=== PATIENT | male | born 1940 | race Two or more races ===

== ENCOUNTER → 2018-03-11 | Outpatient (CLI) | payer MEDICARE ==
[2018-03-11 11:15] LABS: HCT 39.3 % (39.0-53.0); HGB 13.1 gm/dL (13.0-17.5); MCH 29.9 pg (25.0-35.0); MCHC 33.3 g/dL (31.0-37.0); MCV 89.8 fL (80.0-100.0); Mean Platelet Volume 6.4; Platelet Count 140 k/uL (150-450); RBC 4.38 m/uL (4.30-5.90); RDW 13.6 % (11.5-15.5); WBC 8.2 k/uL (3.8-10.6)
[2018-03-11 11:51] LABS: ALT 46 U/L (21-72); AST 48 U/L (17-59); Albumin 4.4 g/dL (3.5-5.0); Alkaline Phosphatase 103 U/L (38-126); Anion Gap 9 mmol/L; Blood Urea Nitrogen 13 mg/dL (9-20); Calcium 9.4 mg/dL (8.4-10.2); Carbon Dioxide 27 mmol/L (22-30); Chloride 92 mmol/L (98-107); Glucose 91 mg/dL (74-99); Potassium 5.6 mmol/L (3.5-5.1); Sodium 128 mmol/L (137-145); Total Bilirubin 0.9 mg/dL (0.2-1.3); Total Protein 6.9 g/dL (6.3-8.2)
== END | disposition home or self-care (01) ==
LOC: LABWHC1 10:03
PROVIDERS: ATTEND Thoracic Surgery (Cardiothoracic Vascular Surgery)
DX: E63.8 Other specified nutritional deficiencies (principal)
CPT/HCPCS: 36415; 80053; 84134; 85027

== ENCOUNTER → 2018-03-25 | Outpatient (CLI) | payer MEDICARE | END | disposition home or self-care (01) | LOC: RADUSWWP 13:14 | PROVIDERS: ATTEND Thoracic Surgery (Cardiothoracic Vascular Surgery) | DX: M79.604 Pain in right leg (principal) | CPT/HCPCS: 93923 ==

== ENCOUNTER 2022-12-11 12:19 | Observation (INO) | payer MEDICARE ==
[2022-12-11 13:33] LABS: Calcium 9.5 mg/dL (8.4-10.2); Potassium 4.9 mmol/L (3.5-5.1)
[2022-12-11 13:42] LABS: Appearance,Urine Clear (Clear); Bilirubin,Urine Negative (Negative); Blood,Urine Trace (Negative); Color,Urine Yellow; Glucose,Urine (UA) Negative (Negative); Ketones,Urine Negative (Negative); Leukocyte Esterase,Urine Negative (Negative); Mucus,Urine Rare /hpf; Nitrite,Urine Negative (Negative); PH, Urine 5.5 (5.0-8.0); Protein,Urine 2+ (Negative); RBC,Urine 23 /hpf (0-5); Specific Gravity,Urine 1.017 (1.001-1.035); Squamous Epithelial Cell,Urine <1 /hpf (0-4); Urobilinogen,Urine <2.0 mg/dL (<2.0); WBC,Urine <1 /hpf (0-5)
[2022-12-11 13:54] LABS: HCT 33.9 % (39.0-53.0); HGB 11.5 gm/dL (13.0-17.5); MCH 30.2 pg (25.0-35.0); MCHC 33.9 g/dL (31.0-37.0); RBC 3.81 m/uL (4.30-5.90); RDW 15.1 % (11.5-15.5); WBC 8.2 k/uL (3.8-10.6)
--- NOTE | 2022-12-11 13:58 | US ---
EXAMINATION TYPE: US renals and bladder DATE OF EXAM: 12/11/2022 COMPARISON: NONE CLINICAL INDICATION: Male, 82 years old with history of retention; Urinary retention EXAM MEASUREMENTS: Right and left kidneys measure 10.1 and 9.7 cm, respectively. Right Kidney: Mild hydronephrosis. Left Kidney: lobulation upper pole- indistinct borders ?lobulation vs mass= 3.3 x 3.3 cm Bladder: Collapsed due to catheter in place IMPRESSION: 1. Mild right-sided hydronephrosis. Further appropriate evaluation and management recommended. 2. A 3.3 cm area of focal lobulation to the contour of the left kidney upper pole. Unclear if this re presents a normal lobulation or cortical mass. Either 3 month follow-up renal ultrasound to reassess versus cross-sectional evaluation.
--- NOTE | 2022-12-11 14:08 | ED ---
General Adult HPI - General Chief complaint: Urogenital Stated complaint: Feels like needs to urinate but cant Time Seen by Provider: 12/11/22 12:40 Source: patient, family, RN notes reviewed Mode of arrival: wheelchair Limitations: no limitations - History of Present Illness Initial comments: Patient is an 82-year-old male with past medical history remarkable for hypertension, thyroid disorder, hyperlipidemia who presents emergency Department with bladder and lower abdominal distention as well as difficulty with urination for the last 2 weeks, significantly worse over the last 2 days if he is having leaking of urine. No significant history of prostate disease, gallbladder disease, kidney disease. Was previously on Coumadin but no longer is due to bleeding issues. Has no other acute complaints at this time. Denies fevers, chills, sick contacts. Denies chest pain or shortness of breath. Presents for the concern for his urination. No abdominal pain. Upon arrival, bladder scan showed greater than 1 L of urine in his bladder. - Related Data Home Medications Medication Instructions Recorded Confirmed Bisoprolol-Hctz 10-6.25 mg [Ziac 1 tab PO DAILY 09/06/22 12/11/22 10-6.25 MG] Levothyroxine Sodium [Synthroid] 125 mcg PO DAILY 09/06/22 12/11/22 Simvastatin [Zocor] 40 mg PO HS 09/06/22 12/11/22 Vitamin D(Unknown Dose) 1 tab PO DAILY 09/06/22 12/11/22 ramipriL [Altace] 5 mg PO DAILY 09/06/22 12/11/22 Previous Rx's Medication Instructions Recorded Omeprazole [PriLOSEC] 20 mg PO AC-BRKFST #90 cap 09/09/22 Atorvastatin [Lipitor] 40 mg PO HS #30 tab 09/11/22 Nitroglycerin Sl Tabs [Nitrostat] 0.4 mg SUBLINGUAL Q5M PRN #50 tab 09/11/22 Allergies Allergy/AdvReac Type Severity Reaction Status Date / Time No Known Allergies Allergy Verified 12/11/22 13:38 Review of Systems ROS Statement: Those systems with pertinent positive or pertinent negative responses have been documented in the HPI. Review of Systems: CONST: Denies fever EYES: Denies blurry vision ENT: Denies nasal congestion C/V: Denies Chest pain RESP: Denies shortness of breath GI: Denies abdominal pain : Endorses urinary incontinence as well as difficulty with urination. SKIN: Denies rash. MSK: Denies joint pain. NEURO: Denies headache ROS Other: All systems not noted in ROS Statement are negative. Past Medical History Past Medical History: Hyperlipidemia, Hypertension, Thyroid Disorder Additional Past Medical History / Comment(s): phlebitis History of Any Multi-Drug Resistant Organisms: None Reported Past Surgical History: Appendectomy, Orthopedic Surgery, Tonsillectomy Additional Past Surgical History / Comment(s): intestinal surgery. right hip replacement 2011. Past Psychological History: No Psychological Hx Reported Smoking Status: Former smoker Past Alcohol Use History: Rare Past Drug Use History: None Reported - Past Family History Father Family Medical History: No Reported History Mother Family Medical History: No Reported History General Exam - General Exam Comments Initial Comments: General: Appears in no acute distress. HEAD: Normal with no signs of head trauma. EYES: EOMI. ENT: Hearing grossly intact. RESPIRATORY: No respiratory distress. C/V: Regular rate and rhythm. ABD: Abdomen evaluated after Steward catheter was placed. Distention is improved for mild suprapubic fullness likely secondary to still draining urine. No tenderness to palpation. No guarding. No peritoneal signs. EXT: No obvious deformity. SKIN: No rashes or lesions observed on exposed skin. NEURO: Alert and oriented. Limitations: no limitations Course Vital Signs 12/11/22 12/11/22 12:21 14:30 Temperature 98.3 F Pulse Rate 61 64 Respiratory 18 18 Rate Blood Pressure 133/64 117/62 O2 Sat by Pulse 100 99 Oximetry Medical Decision Making - Medical Decision Making Was pt. sent in by a medical professional or institution (, PA, LITHOGRAPHIC GENERAL WORKER, urgent care, hospital, or fpc...) When possible be specific @ -No Did you speak to anyone other than the patient for history (EMS, parent, family, police, friend...)? What history was obtained from this source @ -No Did you review nursing and triage notes (agree or disagree)? Why? @ -I reviewed and agree with nursing and triage notes Were old charts reviewed (outside hosp., previous admission, EMS record, old EKG, old radiological studies, urgent care reports/EKG's, fpc records)? Report findings @ -No old charts were reviewed Differential Diagnosis (chest pain, altered mental status, abdominal pain women, abdominal pain men, vaginal bleeding, weakness, fever, dyspnea, syncope, headache, dizziness, GI bleed, back pain, seizure, CVA, palpatations, mental health, musculoskeletal)? @ -BPH, urinary retention, SHELLIE secondary to obstruction, UTI. This list is not all inclusive. EKG interpreted by me (3pts min.). @ -None done X-rays interpreted by me (1pt min.). @ -None done CT interpreted by me (1pt min.). @ -None done U/S interpreted by me (1pt. min.). @ -Interpreted by radiology, reveals mild hydronephrosis as well as a lobulated mass of the left kidney with recommendation for repeat ultrasound in 3 months. What testing was considered but not performed or refused? (CT, X-rays, U/S, labs)? Why? @ -None What meds were considered but not given or refused? Why? @ -None Did you discuss the management of the patient with other professionals (professionals i.e. , PA, LITHOGRAPHIC GENERAL WORKER, lab, RT, psych nurse, social science manager, fittings finisher, teacher, personnel training officer, behavioral health case manager)? Give summary @ -I spoke with the admitting physician Dr. Aguirre who accepted the patient. I consulted Dr. Delgado of urology and spoke with him who was in agreement with plan and requested I start the patient on Flomax which was done. Was smoking cessation discussed for >3mins.? @ -No Was critical care preformed (if so, how long)? @ -No Were there social determinants of health that impacted care today? How? (Homelessness, low income, unemployed, alcoholism, drug addiction, transportation, low edu. Level, literacy, decrease access to med. care, retirement, rehab)? @ -No Was there de-escalation of care discussed even if they declined (Discuss DNR or withdrawal of care, Hospice)? DNR status @ -No What co-morbidities impacted this encounter? (DM, HTN, Smoking, COPD, CAD, Cancer, CVA, ARF, Chemo, Hep., AIDS, mental health diagnosis, sleep apnea, morbid obesity)? @ -None Was patient admitted / discharged? Hospital course, mention meds given and route, prescriptions, significant lab abnormalities, going to OR and other pertinent info. @ -Based on the patient's presentation and physical exam, I'm concerned for acute urinary retention for the patient. Bladder scan showed greater than 1 L of urine in the patient's bladder. Steward catheter was immediately placed by nursing staff. It was slowly drain we will intimately clamp to keep the patient hemodynamically stable. He was in agreement with this plan. We will obtain basic labs as well as ultrasound of the kidneys and bladder. Patient was in agreement this plan. No other symptoms at this time. Vital signs within acceptable limits. Patient's labs are remarkable for an SHELLIE likely obstructive with a BUN of 64 and creatinine of 3.57. Hemoglobin is slightly decreased 11.5, however this is improved from prior visits. Urine is remarkable for 23 RBCs but otherwise no evidence of infection. Patient has mild hydronephrosis on ultrasound. Also an area of lobulation of the left kidney suggestive of a possible mass with repeat ultrasound recommended in 3 months. I spoke with the admitting physician, Dr. aguirre who accepted the patient. I spoke with Dr. Delgado urology who accepted the consult and requested patient placement on Flomax. Total urinary output from the Steward catheter was Approximately 1600 mL. I updated the patient who was in agreement with the above plan. Patient will be admitted to observation. Undiagnosed new problem with uncertain prognosis? @ -No Drug Therapy requiring intensive monitoring for toxicity (Heparin, Nitro, I nsulin, Cardizem)? @ -No Were any procedures done? @ -No Diagnosis/symptom? @ -Urinary retention, kidney injury, steward catheter placement Acute, or Chronic, or Acute on Chronic? @ -Acute Uncomplicated (without systemic symptoms) or Complicated (systemic symptoms)? @ -Complicated Side effects of treatment? @ -No Exacerbation, Progression, or Severe Exacerbation? @ -No Poses a threat to life or bodily function? How? (Chest pain, [place], [place], pneumonia, PE, COPD, DKA, ARF, appy, cholecystitis, CVA, Diverticulitis, Homicidal, Suicidal, threat to staff... and all critical care pts) @ -No - Lab Data Result diagrams: 12/11/22 13:06 12/11/22 13:06 Lab Results 12/11/22 12/11/22 12/11/22 Range/Units 12:46 13:06 13:06 WBC 8.2 (3.8-10.6) k/uL RBC 3.81 L (4.30-5.90) m/uL Hgb 11.5 L (13.0-17.5) gm/dL Hct 33.9 L (39.0-53.0) % MCV 89.0 (80.0-100.0) fL MCH 30.2 (25.0-35.0) pg MCHC 33.9 (31.0-37.0) g/dL RDW 15.1 (11.5-15.5) % Plt Count 97 L (150-450) k/uL MPV 8.0 Sodium 138 (137-145) mmol/L Potassium 4.9 (3.5-5.1) mmol/L Chloride 103 (98-107) mmol/L Carbon Dioxide 20 L (22-30) mmol/L Anion Gap 15 mmol/L BUN 64 H (9-20) mg/dL Creatinine 3.57 H (0.66-1.25) mg/dL Est GFR (CKD-EPI)AfAm 17 (>60 ml/min/1.73 sqM) Est GFR (CKD-EPI)NonAf 15 (>60 ml/min/1.73 sqM) Glucose 105 H (74-99) mg/dL Calcium 9.5 (8.4-10.2) mg/dL Urine Color Yellow Urine Appearance Clear (Clear) Urine pH 5.5 (5.0-8.0) Ur Specific [place] 1.017 (1.001-1.035) Urine Protein 2+ H (Negative) Urine Glucose (UA) Negative (Negative) Urine Ketones Negative (Negative) Urine Blood Trace H (Negative) Urine Nitrite Negative (Negative) Urine Bilirubin Negative (Negative) Urine Urobilinogen <2.0 (<2.0) mg/dL Ur Leukocyte Esterase Negative (Negative) Urine RBC 23 H (0-5) /hpf Urine WBC <1 (0-5) /hpf Ur Squamous Epith Cells <1 (0-4) /hpf Urine Mucus Rare H (None) /hpf Disposition Clinical Impression: SHELLIE (acute kidney injury), Urinary retention, Steward catheter in place Disposition: ADMITTED IP TO THIS HOSP Condition: Stable Time of Disposition: 14:25
[2022-12-11] MEDS ORDERED: SODIUM CHLORIDE 0.9% 1,000 ML IV STA (14:14)
[2022-12-11] MEDS ORDERED: ACETAMINOPHEN TAB 325 MG TAB PO PRN (14:37)
[2022-12-11] MEDS ORDERED: NALOXONE 0.4 MG/ML 1 ML VIAL IV PRN (14:37)
[2022-12-11] MEDS ORDERED: NITROGLYCERIN SL TABS 0.4 MG TAB SUBLINGUAL PRN (14:42)
--- NOTE | 2022-12-11 14:45 | P.HPIM ---
History of Present Illness This is a pleasant 82 years old male with past medical history of hypertension, hyperlipidemia, hypothyroidism and hypertension This is a pleasant 82 years old male who presents with urinary difficulty for about one week, he feels the need to go but then no urine comes out. No dysuria or urgency or anything like that, no suprapubic or flank tenderness He denies any other symptom.Patient denies chest pain or dyspnea or coughing. No abdominal pain vomiting or diarrhea. No headache weakness numbness or confusion. Vitals are stable Patient has mild anemia with hemoglobin 11.5. Creatinine is elevated at 3.5 compared to baseline of 1.2 Urine analysis is not suspicious for infection Renal ultrasound:right mild hydronephrosis. A 3.3 cm of the left upper kidney, cannot rule out mass Review of Systems Review of systems CONSTITUTIONAL: No fever, no malaise, no fatigue. HEENT: No recent visual problems or hearing problems. Denied any sore throat. CARDIOVASCULAR: No orthopnea, PND, no palpitations, no syncope. PULMONARY: No shortness of breath, no cough, no hemoptysis. GASTROINTESTINAL: No diarrhea, no nausea, no vomiting, no abdominal pain. Normoactive bowel sounds. NEUROLOGICAL: No headaches, no weakness, no numbness. HEMATOLOGICAL: Denies any bleeding or petechiae. GENITOURINARY: Denies any burning micturition, frequency, or urgency. MUSCULOSKELETAL/RHEUMATOLOGICAL: Denies any joint pain, swelling, or any muscle pain. ENDOCRINE: Denies any polyuria or polydipsia. Past Medical History Past Medical History: Hyperlipidemia, Hypertension, Thyroid Disorder Additional Past Medical History / Comment(s): phlebitis History of Any Multi-Drug Resistant Organisms: None Reported Past Surgical History: Appendectomy, Orthopedic Surgery, Tonsillectomy Additional Past Surgical History / Comment(s): intestinal surgery. right hip replacement 2011. Past Psychological History: No Psychological Hx Reported Smoking Status: Former smoker Past Alcohol Use History: Rare Past Drug Use History: None Reported - Past Family History Father Family Medical History: No Reported History Mother Family Medical History: No Reported History Medications and Allergies Home Medications Medication Instructions Recorded Confirmed Type Bisoprolol-Hctz 10-6.25 mg [Ziac 1 tab PO DAILY 09/06/22 12/11/22 History 10-6.25 MG] Levothyroxine Sodium [Synthroid] 125 mcg PO DAILY 09/06/22 12/11/22 History Simvastatin [Zocor] 40 mg PO HS 09/06/22 12/11/22 History Vitamin D(Unknown Dose) 1 tab PO DAILY 09/06/22 12/11/22 History ramipriL [Altace] 5 mg PO DAILY 09/06/22 12/11/22 History Omeprazole [PriLOSEC] 20 mg PO AC-BRKFST #90 cap 09/09/22 12/11/22 Rx Atorvastatin [Lipitor] 40 mg PO HS #30 tab 09/11/22 12/11/22 Rx Nitroglycerin Sl Tabs [Nitrostat] 0.4 mg SUBLINGUAL Q5M PRN #50 tab 09/11/22 12/11/22 Rx Allergies Allergy/AdvReac Type Severity Reaction Status Date / Time No Known Allergies Allergy Verified 12/11/22 13:38 Physical Exam Vitals: Vital Signs Temp Pulse Resp BP Pulse Ox 12/11/22 12:21 98.3 F 61 18 133/64 100 Intake and Output 12/10/22 12/11/22 12/11/22 22:59 06:59 14:59 Output Total 800 Balance -800 Output: Urine 800 Uretheral (Handy) 800 Other: Weight 81.647 kg GENERAL: The patient is alert and oriented x3, not in any acute distress. Well developed, well nourished. HEENT: Pupils are round and equally reacting to light. EOMI. No scleral icterus. No conjunctival pallor. Normocephalic, atraumatic. No pharyngeal erythema. No thyromegaly. CARDIOVASCULAR: S1 and S2 present. No murmurs, rubs, or gallops. PULMONARY: Chest is clear to auscultation, no wheezing or crackles. ABDOMEN: Soft, nontender, nondistended, normoactive bowel sounds. No palpable organomegaly. MUSCULOSKELETAL: No joint swelling or deformity. EXTREMITIES: No cyanosis, clubbing, or pedal edema. NEUROLOGICAL: Gross neurological examination did not reveal any focal deficits. SKIN: No rashes. no petechiae. Results CBC & Chem 7: 12/11/22 13:06 12/11/22 13:06 Labs: Abnormal Lab Results - Last 24 Hours (Table) 05/03/23 05/03/23 05/03/23 Range/Units 12:46 13:06 13:06 RBC 3.81 L (4.30-5.90) m/uL Hgb 11.5 L (13.0-17.5) gm/dL Hct 33.9 L (39.0-53.0) % Carbon Dioxide 20 L (22-30) mmol/L BUN 64 H (9-20) mg/dL Creatinine 3.57 H (0.66-1.25) mg/dL Glucose 105 H (74-99) mg/dL Urine Protein 2+ H (Negative) Urine Blood Trace H (Negative) Urine RBC 23 H (0-5) /hpf Urine Mucus Rare H (None) /hpf Assessment and Plan Assessment: Acute urinary tract retention Acute kidney injury most likely secondary to acute urinary retention 3.3 cm of the left upper kidney, cannot rule out mass lesion chronic kidney disease stage III Hyperlipidemia Hypothyroidism Hypothyroidism Plan: Continue gentle hydration, normal saline 100 mL per hour Continue with Handy catheter Continue with Flomax Neurology and nephrology consult hold hydrochlorothiazide and ramipril Continue with bisoprolol. Add Norvasc patient and son at bedside informed about his left kidney lesion which could be masked with recommendation for outpatient follow-up, risks including but not limited to cancer explained and they verbalized understanding and acceptance\ Labs and medication were reviewed.. Continue same treatment. Continue with symptomatic treatment. Resume home medication. Monitor labs and vitals. DVT and GI prophylaxis. Further recommendations as per clinical course of the pat ient DVT prophylaxis: Subcutaneous heparin GI Prophylaxis: Pepcid PT/OT: Pending Prognosis is guarded
[2022-12-11 14:49] LABS: Platelet Count 97 k/uL (150-450)
[2022-12-11] MEDS ORDERED: TAMSULOSIN 0.4 MG CAP.ER.24H PO STA (15:13)
[2022-12-11] MEDS: HEPARIN SODIUM,PORCINE/PF 5,000 UNIT/0.5 ML SYRINGE SQ SCH (20:29)
[2022-12-11] MEDS: FAMOTIDINE 20 MG/2 ML VIAL IV SCH (20:29)
[2022-12-11] MEDS ORDERED: ATORVASTATIN 40 MG TAB PO SCH (21:00)
[2022-12-11] MEDS ORDERED: SODIUM CHLORIDE 0.9% 1,000 ML IV SCH (22:30)
[2022-12-12] MEDS ORDERED: LEVOTHYROXINE 125 MCG TAB PO SCH (06:30)
[2022-12-12] MEDS ORDERED: TAMSULOSIN 0.4 MG CAP.ER.24H PO SCH (08:30)
[2022-12-12] MEDS ORDERED: amLODIPine 2.5 MG TAB PO SCH (09:00)
[2022-12-12] MEDS: HEPARIN SODIUM,PORCINE/PF 5,000 UNIT/0.5 ML SYRINGE SQ SCH (09:15)
[2022-12-12] MEDS: FAMOTIDINE 20 MG/2 ML VIAL IV SCH (09:28)
[2022-12-12 11:16] LABS: African American GFR (CKD) 23.3 (60.0-200.0); Anion Gap 11.2 mmol/L (10.00-18.00); BUN/Creat Ratio 21.04 Ratio (12.00-20.00); Blood Urea Nitrogen 58.9 mg/dL (9.0-27.0); Calcium 9.2 mg/dL (8.7-10.3); Carbon Dioxide 22.3 mmol/L (20.0-27.5); Non-African American GFR(CKD) 20.1 (60.0-200.0); Potassium 4.6 mmol/L (3.5-5.5)
--- NOTE | 2022-12-12 12:07 | P.NPCON ---
History of Present Illness - Reason for Consult acute renal failure - History of Present Illness reason for consultation: Acute kidney injury History of present illness: Patient is a 82-year-old male seen in renal consultation for acute kidney injury. Patient's creatinine as of 09/10/2022 was 1.23. This admission creatinine was 3.57 is 2.8 today. Patient presented to the hospital due to decreased urine output over the last 2-3 days. He was also having suprapubic discomfort. Patient was noted to have urinary retention and over 1.5 L of urine was obtained and Handy catheter was placed. Patient's urine output has been close to 3 L since Handy catheter placement yesterday. Renal ultrasound showed right-sided hydronephrosis with 3.3 cm lobulation to the contour of the left kidney. He's being followed by urology. He is currently receiving IV fluids. No vomiting or diarrhea. Denies use of nonsteroidals. He was on thiazide diuretic as well as MALIK inhibitor both of which are currently held. He's currently on amlodipine and blood pressure is well controlled. He is on room air. No history of diabetes. No history of heart disease. No chest pain or shortness of breath. Family present at bedside. Vital signs are stable. General: No acute distress. HEENT: Head exam is unremarkable. LUNGS: No audible rhonchi or wheezes. HEART: Rate and Rhythm are regular. ABDOMEN: Nontender. EXTREMITITES: No edema. Past Medical History Past Medical History: Hyperlipidemia, Hypertension, Thyroid Disorder Additional Past Medical History / Comment(s): phlebitis History of Any Multi-Drug Resistant Organisms: None Reported Past Surgical History: Appendectomy, Orthopedic Surgery, Tonsillectomy Additional Past Surgical History / Comment(s): intestinal surgery. right hip replacement 2011. Past Anesthesia/Blood Transfusion Reactions: No Reported Reaction Past Psychological History: No Psychological Hx Reported Smoking Status: Former smoker Past Alcohol Use History: Rare Past Drug Use History: None Reported - Past Family History Father Family Medical History: No Reported History Mother Family Medical History: No Reported History Medications and Allergies Home Medications Medication Instructions Recorded Confirmed Type Bisoprolol-Hctz 10-6.25 mg [Ziac 1 tab PO DAILY 09/06/22 12/11/22 History 10-6.25 MG] Levothyroxine Sodium [Synthroid] 125 mcg PO DAILY 09/06/22 12/11/22 History Simvastatin [Zocor] 40 mg PO HS 09/06/22 12/11/22 History Vitamin D(Unknown Dose) 1 tab PO DAILY 09/06/22 12/11/22 History ramipriL [Altace] 5 mg PO DAILY 09/06/22 12/11/22 History Omeprazole [PriLOSEC] 20 mg PO AC-BRKFST #90 cap 09/09/22 12/11/22 Rx Atorvastatin [Lipitor] 40 mg PO HS #30 tab 09/11/22 12/11/22 Rx Nitroglycerin Sl Tabs [Nitrostat] 0.4 mg SUBLINGUAL Q5M PRN #50 tab 09/11/22 12/11/22 Rx Allergies Allergy/AdvReac Type Severity Reaction Status Date / Time No Known Allergies Allergy Verified 12/11/22 13:38 Physical Exam Vitals: Vital Signs Temp Pulse Pulse Resp BP BP Pulse Ox 12/12/22 07:15 97.8 F 49 L 12/12/22 00:49 97.9 F 52 L 15 121/62 94 L 12/11/22 20:00 52 L 15 12/11/22 18:02 98.4 F 77 16 125/68 99 12/11/22 14:30 64 18 117/62 99 12/11/22 12:21 98.3 F 61 18 133/64 100 Intake and Output 12/11/22 12/12/22 12/12/22 22:59 06:59 14:59 Intake Total 100 Output Total 1450 Balance 100 -1450 Intake: Intake, IV Titration 100 Amount Sodium Chloride 0.9% 1, 100 000 ml @ 100 mls/hr IV . Q10H STA Rx#:[id number] Output: Urine 1450 Other: Voiding Method Indwelling Catheter # Bowel Movements 1 Weight 81.647 kg Results - Lab Results Most recent lab results Calcium 9.2 mg/dL (8.7-10.3) 12/12/22 06:04 Magnesium 1.7 mg/dL (1.6-2.3) 12/12/22 06:04 12/11/22 13:06 12/12/22 06:04 Assessment and Plan Plan: Assessment: 1. Acute kidney injury secondary to obstructive uropathy. Creatinine 2.57 on admission and is 2.8 today. Nonoliguric. Creatinine as of August 2022 was as low as 1.2. 2. Urinary retention with right-sided hydronephrosis being followed by urology. Has Handy catheter. On Flomax. 3. Benign hypertension. Controlled. Plan: Encourage oral intake. Maintain IV fluids for now. Continue to hold MALIK inhibitor and diuretic until GFR returns to baseline. Avoid nephrotoxins. Repeat BMP and magnesium level 2-3 days post discharge. Follow up outpatient in 1 week. Thank you for the consultation. I will continue to follow the patient with you during his hospital stay.
[2022-12-12 12:24] VITALS: BP 161/71; PULSE 57; RESP 18; TEMP 98.3
[2022-12-12 12:26] LABS: Basophils # (A) 0.03 X 10*3/uL (0.00-0.10); Basophils % (A) 0.4 %; Eosinophils # (A) 0.06 X 10*3/uL (0.04-0.35); Eosinophils % (A) 0.8 %; HCT 31.8 % (39.6-50.0); HGB 10.6 g/dL (13.0-17.0); Immature Grans, Automated 0.4 %; Immature Platelet Fraction 3.4 % (1.1-6.1); Lymphocytes % (A) 10.7 %; MCH 30.6 pg (27.0-32.0); MCHC 33.3 g/dL (32.0-37.0); MCV 91.9 fL (80.0-97.0); Mean Platelet Volume 11.1 fL (9.5-12.2); Monocytes # (A) 0.83 X 10*3/uL (0.20-1.00); Monocytes % (A) 11.1 %; NRBC Per 100 WBC 0 /100 WBCS (0.0-0.0); Neutrophils # (A) 5.76 X 10*3/uL (1.80-7.70); Neutrophils % (A) 76.6 %; Platelet Count 76 X 10*3/uL (140-440); RBC 3.46 X 10*6/uL (4.40-5.60); RDW 14.5 % (11.5-14.5); WBC 7.51 X 10*3/uL (4.50-10.00)
--- NOTE | 2022-12-12 16:28 | P.GSCN ---
History of Present Illness Consult date: 12/12/22 Reason for Consult: Urinary retention History of present illness: This is an 82-year-old male admitted to the hospital 1.4 L urinary retention and acute kidney injury secondary to his retention. Patient is having difficulty voiding for the past week he presented to the ER due to that. No previous history of urinary retention. No history of kidney stones or recurrent UTIs. At baseline he does complain of a weak stream but he was able to void. No previous bladder prostate surgeries. On presentation underwent ultrasound that showed evidence of mild bilateral hydronephrosis, Past Medical History Past Medical History: Hyperlipidemia, Hypertension, Thyroid Disorder Additional Past Medical History / Comment(s): phlebitis History of Any Multi-Drug Resistant Organisms: None Reported Past Surgical History: Appendectomy, Orthopedic Surgery, Tonsillectomy Additional Past Surgical History / Comment(s): intestinal surgery. right hip replacement 2011. Past Anesthesia/Blood Transfusion Reactions: No Reported Reaction Past Psychological History: No Psychological Hx Reported Smoking Status: Former smoker Past Alcohol Use History: Rare Past Drug Use History: None Reported - Past Family History Father Family Medical History: No Reported History Mother Family Medical History: No Reported History Medications and Allergies Home Medications Medication Instructions Recorded Confirmed Type Levothyroxine Sodium [Synthroid] 125 mcg PO DAILY 09/06/22 12/11/22 History Simvastatin [Zocor] 40 mg PO HS 09/06/22 12/11/22 History Vitamin D(Unknown Dose) 1 tab PO DAILY 09/06/22 12/11/22 History Omeprazole [PriLOSEC] 20 mg PO AC-BRKFST #90 cap 09/09/22 12/11/22 Rx Atorvastatin [Lipitor] 40 mg PO HS #30 tab 09/11/22 12/11/22 Rx Nitroglycerin Sl Tabs [Nitrostat] 0.4 mg SUBLINGUAL Q5M PRN #50 tab 09/11/22 12/11/22 Rx Acetaminophen Tab [Tylenol] 650 mg PO Q6HR PRN tab 12/12/22 Rx Bisoprolol [Zebeta] 5 mg PO DAILY #30 tablet 12/12/22 Rx Tamsulosin [Flomax] 0.4 mg PO PC-BRKFST #30 cap 12/12/22 Rx amLODIPine [Norvasc] 2.5 mg PO DAILY #30 tab 12/12/22 Rx Allergies Allergy/AdvReac Type Severity Reaction Status Date / Time No Known Allergies Allergy Verified 12/11/22 13:38 Surgical - Exam Vital Signs Temp Pulse Resp BP Pulse Ox 98.3 F 61 18 133/64 100 12/11/22 12:21 12/11/22 12:21 12/11/22 12:21 12/11/22 12:21 12/11/22 12:21 - General no distress, no pain - Eyes normal ocular movement, no pale - ENT normal nares, normal mucosa - Respiratory normal expansion, normal respiratory effort - Abdomen Abdomen: soft, non tender - Genitourinary normal penis with no external lesions, testicles present - Psychiatric oriented to time, oriented to person, oriented to place Results - Labs 12/12/22 06:04 12/12/22 06:04 Abnormal Lab Results - Last 24 Hours (Table) 12/12/22 12/12/22 Range/Units 06:04 06:04 RBC 3.46 L (4.40-5.60) X 10*6/uL Hgb 10.6 L (13.0-17.0) g/dL Hct 31.8 L (39.6-50.0) % Plt Count 76 L (140-440) X 10*3/uL Lymphocytes # 0.80 L (0.90-5.00) X 10*3/uL BUN 58.9 H (9.0-27.0) mg/dL Creatinine 2.8 H (0.6-1.5) mg/dL Est GFR (CKD-EPI)AfAm 23.3 L (60.0-200.0) Est GFR (CKD-EPI)NonAf 20.1 L (60.0-200.0) BUN/Creatinine Ratio 21.04 H (12.00-20.00) Ratio Diabetes panel 12/12/22 Range/Units 06:04 Sodium 140 (135-145) mmol/L Potassium 4.6 (3.5-5.5) mmol/L Chloride 107 (96-109) mmol/L Carbon Dioxide 22.3 (20.0-27.5) mmol/L BUN 58.9 H (9.0-27.0) mg/dL Creatinine 2.8 H (0.6-1.5) mg/dL Glucose 95 (70-110) mg/dL Calcium 9.2 (8.7-10.3) mg/dL Calcium panel 12/12/22 Range/Units 06:04 Calcium 9.2 (8.7-10.3) mg/dL Pituitary panel 12/12/22 Range/Units 06:04 Sodium 140 (135-145) mmol/L Potassium 4.6 (3.5-5.5) mmol/L Chloride 107 (96-109) mmol/L Carbon Dioxide 22.3 (20.0-27.5) mmol/L BUN 58.9 H (9.0-27.0) mg/dL Creatinine 2.8 H (0.6-1.5) mg/dL Glucose 95 (70-110) mg/dL Calcium 9.2 (8.7-10.3) mg/dL Adrenal panel 12/12/22 Range/Units 06:04 Sodium 140 (135-145) mmol/L Potassium 4.6 (3.5-5.5) mmol/L Chloride 107 (96-109) mmol/L Carbon Dioxide 22.3 (20.0-27.5) mmol/L BUN 58.9 H (9.0-27.0) mg/dL Creatinine 2.8 H (0.6-1.5) mg/dL Glucose 95 (70-110) mg/dL Calcium 9.2 (8.7-10.3) mg/dL Assessment and Plan Assessment: 82-year-old male 1.4 L urinary retention. No previous history of retention. Does have obstructive symptoms at baseline. His bilateral hydronephrosis is likely secondary to his distended bladder. At this time recommend discharging home with the Handy catheter, keep catheter in for 10 days, can follow-up as an outpatient for trial of void. Advised patient to be discharged on Flomax.
--- NOTE | 2022-12-12 22:34 | P.DS ---
Providers Date of admission: 12/11/22 15:48 Attending physician: Samm Vidal MD Consults: 12/11/22 14:17 Consult Physician Routine Consulting Provider: Landry Delgado Consult Reason/Comments: obstructive uropathy Do you want consulting provider notified?: Already Contacted 12/11/22 14:27 Consult Physician Urgent Consulting Provider: Steven Estrada Consult Reason/Comments: fuad Do you want consulting provider notified?: Yes Primary care physician: Sandoval Thibodeaux Hospital Course: Diagnoses: -Acute urinary tract retention -Acute kidney injury most likely secondary to acute urinary retention -3.3 cm of the left upper kidney, cannot rule out mass lesion. Patient and son are aware of this lesion and the need follow-up outpatient with urologist. Risk of cancer cannot be excluded and patient is aware -chronic kidney disease stage III -Hyperlipidemia -Hypothyroidism -Hypothyroidism Hospital course: This is a pleasant 82 years old male who presents with urinary difficulty for about one week, he feels the need to go but then no urine comes out. No dysuria or urgency or anything like that, no suprapubic or flank tenderness Patient was found to have urinary retention and Handy catheter was placed, he has acute kidney injury with creatinine 3.5. Patient evaluated by urologist and returned telephone equipment appraiser and he was treated with IV fluid. Creatinine improved down to 2.8 today. Other than that patient remains asymptomatic. No new complaint. I discussed the case with the urologist today who cleared him for discharge and to keep Handy catheter until he sees him as an outpatient Also returned telephone equipment appraiser. The patient for discharge as long as creatinine is improving. Patient feels he is ready for discharge and follow-up outpatient he had Hydrochlorothiazide and MALIK inhibitor were held upon discharge. Bisoprolol dose was lowered 10 mg and 5 mg because of a symptomatic bradycardia. Norvasc 2.5 mg added. Patient blood pressure was controlled upon discharge and is stable Problems and management plan were discussed with the patient and he verbalized understanding and acceptance Patient was found stable and can be discharged home in guarded prognosis however he needs follow-up as an outpatient. Patient was instructed to follow up with PCP Dr. Thibodeaux within one week and patient agrees Patient was instructed to follow up with urologist and he agrees with appointment made for him on 12/20 Also patient was instructed to follow up with returned telephone equipment appraiser Dr. Harman and he agrees also with appointment made for him on 12/28 Physical exam Gen: patient is a AAOx3, no distress CVS: S1-S2, RRR, no murmur Lungs: B/L CTA, no wheezing -Abdomen: soft, no distention, no tenderness, positive bowel sounds. Handy catheter is in place Extremity: no leg edema or induration Time spent more than 35 minutes Patient Condition at Discharge: Stable Plan - Discharge Summary Discharge Rx Participant: No New Discharge Prescriptions: New amLODIPine [Norvasc] 2.5 mg PO DAILY #30 tab Acetaminophen Tab [Tylenol] 650 mg PO Q6HR PRN tab PRN Reason: Mild Pain Or Fever > 100.5 Tamsulosin [Flomax] 0.4 mg PO PC-BRKFST #30 cap Bisoprolol [Zebeta] 5 mg PO DAILY #30 tablet Continue Simvastatin [Zocor] 40 mg PO HS Levothyroxine Sodium [Synthroid] 125 mcg PO DAILY Nitroglycerin Sl Tabs [Nitrostat] 0.4 mg SUBLINGUAL Q5M PRN #50 tab PRN Reason: Chest Pain Vitamin D(Unknown Dose) 1 tab PO DAILY Omeprazole [PriLOSEC] 20 mg PO AC-BRKFST #90 cap Atorvastatin [Lipitor] 40 mg PO HS #30 tab Discontinued ramipriL [Altace] 5 mg PO DAILY Bisoprolol-Hctz 10-6.25 mg [Ziac 10-6.25 MG] 1 tab PO DAILY Discharge Medication List Levothyroxine Sodium [Synthroid] 125 mcg PO DAILY 09/06/22 [History] Simvastatin [Zocor] 40 mg PO HS 09/06/22 [History] Vitamin D(Unknown Dose) 1 tab PO DAILY 09/06/22 [History] Omeprazole [PriLOSEC] 20 mg PO AC-BRKFST #90 cap 09/09/22 [Rx] Atorvastatin [Lipitor] 40 mg PO HS #30 tab 09/11/22 [Rx] Nitroglycerin Sl Tabs [Nitrostat] 0.4 mg SUBLINGUAL Q5M PRN #50 tab 09/11/22 [Rx] Acetaminophen Tab [Tylenol] 650 mg PO Q6HR PRN tab 12/12/22 [Rx] Bisoprolol [Zebeta] 5 mg PO DAILY #30 tablet 12/12/22 [Rx] Tamsulosin [Flomax] 0.4 mg PO PC-BRKFST #30 cap 12/12/22 [Rx] amLODIPine [Norvasc] 2.5 mg PO DAILY #30 tab 12/12/22 [Rx] Follow up Appointment(s)/Referral(s): Landry Delgado MD [STAFF PHYSICIAN] - 12/20/22 9:40 am Sandoval Thibodeaux MD [Primary Care Provider] - 1-2 days (Office closed for lunch will try to call back/ If unable to please call to schedule a follow up appt. ) Steven Estrada DO [STAFF PHYSICIAN] - 12/18/22 2:00 pm (appointment is with the [facility]ES [employer]ION MANAGER at the [facility]. ) Ambulatory/Diagnostic Orders: Basic Metabolic Panel [LAB.AMB] Time Frame: 3 Days, Location: None Selected Patient Instructions/Handouts: Amlodipine (By mouth), Tamsulosin (By mouth), Bisoprolol (By mouth), Heart Healthy Diet (DC), Basic Metabolic Panel (GEN), Urinary Leg Bag (GEN) Activity/Diet/Wound Care/Special Instructions: Heart healthy diet activity is restricted till you see your doctor we recommend to check your blood test including your basic metabolic panel (BMP) in 2-3 days Discharge Disposition: HOME WITH HOME HEALTH SERVICES
[2022-12-13] MEDS ORDERED: FAMOTIDINE 20 MG TAB PO SCH (09:00)
== END 2022-12-12 13:55 | disposition home health service (06) ==
LOC: EC 12:19 → 5NMEDONC 15:48 → INTOOBSV 15:48 → 5NMEDONC 21:30 → UNDODISIN 12-12 13:55
PROVIDERS: ADMIT Internal Medicine; ATTEND Internal Medicine
DX: N17.9 Acute kidney failure, unspecified (principal); N13.30 Unspecified hydronephrosis; E78.5 Hyperlipidemia, unspecified; E03.9 Hypothyroidism, unspecified; I12.9 Hypertensive chronic kidney disease with stage 1 through stage 4 chronic kidney disease, or unspecified chronic kidney disease; N18.30 Chronic kidney disease, stage 3 unspecified; Z87.891 Personal history of nicotine dependence; Z79.890 Hormone replacement therapy; Z79.899 Other long term (current) drug therapy
CPT/HCPCS: 96361 ×3; 96372; 96374; 96376; 99285; 51702; 51798; 36415; 97162; 97166; 80048 ×2; 83735; 85025; 85027; 81001; 76770; G0378 ×2; J1644; 96360

== ENCOUNTER → 2023-01-14 | Outpatient (CLI) | payer MEDICARE ==
[2023-01-14 11:02] LABS: African American GFR (CKD) 59 (>60 ml/min/1.73 sqM); Anion Gap 9 mmol/L; Blood Urea Nitrogen 31 mg/dL (9-20); Carbon Dioxide 26 mmol/L (22-30); Chloride 103 mmol/L (98-107); Glucose 97 mg/dL (74-99); Non-African American GFR(CKD) 51 (>60 ml/min/1.73 sqM); Potassium 4.2 mmol/L (3.5-5.1); Sodium 138 mmol/L (137-145)
[2023-01-14 18:59] LABS: Bacteria,Urine 3+; Bilirubin,Urine Negative; Blood,Urine Small; Color,Urine Yellow; Ketones,Urine Negative; Nitrite,Urine Positive; PH, Urine 5.5; Specific Gravity,Urine 1.019; Urobilinogen,Urine 0.2
[2023-01-14 20:20] LABS: Basophils # (A) 0.02 X 10*3/uL; Basophils % (A) 0.2 %; Eosinophils # (A) 0.19 X 10*3/uL; Eosinophils % (A) 2.3 %; HCT 34.6 %; HGB 11.2 d/dL; Immature Platelet Fraction 6.5 %; Lymphocytes # (A) 0.98 X 10*3/uL; Lymphocytes % (A) 11.6 %; MCH 29.9 pg; MCHC 32.4 d/dL; MCV 92.5 FL; Mean Platelet Volume 11.2 FL; Monocytes # (A) 0.68 X 10*3/uL; Monocytes % (A) 8.1 %; NRBC Per 100 WBC 0 X 10*3/uL; Neutrophils # (A) 6.51 X 10*3/uL; Neutrophils % (A) 77.3 %; Platelet Count 91 X 10*3/uL; RBC 3.74 X 10*6/uL; RBC Morphology Normal; RDW 15.2 %; WBC 8.42 X 10*3/uL
[2023-01-16 08:57] LABS: Appearance,Urine Cloudy (Clear)
== END | disposition home or self-care (01) ==
LOC: LABPAT 09:45
PROVIDERS: ATTEND Urology
DX: Z01.812 Encounter for preprocedural laboratory examination (principal); N40.1 Benign prostatic hyperplasia with lower urinary tract symptoms
CPT/HCPCS: 36415; 80048; 81001; 85025; 87086

== ENCOUNTER 2023-01-21 09:02 | Day surgery (SDC) | payer MEDICARE ==
[2023-01-17 14:36] VITALS: BMI 20.9
--- NOTE | 2023-01-21 07:50 | P.HPIHPCON ---
History of Present Illness H&P Date: 01/21/23 Chief Complaint: BPH, urinary retention This is an 82-year-old male with history of urinary retention, has failed trial of voids in the past. Patient initially presented to the hospital with urinary retention and acute kidney injury secondary to bladder outlet obstruction. Underwent a cystoscopy that showed evidence of an obstructive prostate. Option of a transuretheral resection of the prostate was discussed with him. Discussed risk which includes but not limited to bleeding, infection, persistent retention, urinary incontinence, strictures, erectile dysfunction and retrograde ejaculation. Risk of anesthesia was also discussed with him. Consent for Procedure: I have explained the operation/procedure to the patient, including the risks, benefits, side effects, alternative therapies (including not receiving the proposed treatment or service), the likelihood of the patient achieving his/her goals, and potential recuperation problems for the procedure/sedation/analgesia, as well as any blood products, if indicated. I also explained to the patient the risks, benefits and side effects of the alternatives, as well as the risks related to not receiving the proposed procedure, care, treatment, or services. Past Medical History Past Medical History: GI Bleed, Hyperlipidemia, Hypertension, Prostate Disorder, Thyroid Disorder Additional Past Medical History / Comment(s): Has steward catheter for urinary retention. Recent hospitalization 12/11/22-12/12/22 for urinary retention/acute kidney injury. Enlarged prostate. Hx GI bleed, low Hgb in Aug 2022, Coumadin was discontinued at that time. Hx phlebitis. History of Any Multi-Drug Resistant Organisms: None Reported Past Surgical History: Appendectomy, Joint Replacement, Tonsillectomy Additional Past Surgical History / Comment(s): intestinal surgery. right hip replacement 2011, colonoscopy. Past Anesthesia/Blood Transfusion Reactions: No Reported Reaction, Motion Sickness Past Psychological History: No Psychological Hx Reported Smoking Status: Former smoker Past Alcohol Use History: None Reported Additional Past Alcohol Use History / Comment(s): Quit smoking in 1976. Past Drug Use History: None Reported - Past Family History Father Family Medical History: No Reported History Mother Family Medical History: No Reported History Son(s) Family Medical History: Deep Vein Thrombosis (DVT) Medications and Allergies Home Medications Medication Instructions Recorded Confirmed Type Levothyroxine Sodium [Synthroid] 125 mcg PO QAM 09/06/22 01/17/23 History Vitamin D(Unknown Dose) 1 tab PO DAILY 09/06/22 01/17/23 History Atorvastatin [Lipitor] 40 mg PO HS #30 tab 09/11/22 01/17/23 Rx Tamsulosin [Flomax] 0.4 mg PO PC-BRKFST #30 cap 12/12/22 01/17/23 Rx Bisoprolol [Zebeta] 5 mg PO QAM 01/17/23 01/17/23 History amLODIPine [Norvasc] 2.5 mg PO QAM 01/17/23 01/17/23 History Allergies Allergy/AdvReac Type Severity Reaction Status Date / Time No Known Allergies Allergy Verified 01/17/23 14:18 Surgical - Exam - General no distress, no pain - Eyes normal ocular movement, no pale - ENT normal nares, normal mucosa - Respiratory normal expansion, normal respiratory effort - Abdomen Abdomen: soft, non tender Assessment and Plan Assessment: OR for TURP
[~2023-01-21 09:02] MED LIST: DEXAMETHASONE SOD PHOSPHATE 4 MG/ML 1 ML VIAL IV ONE; GENTAMICIN 120 MG in SODIUM CHLORIDE 0.9% 100 ML IVPB PRN; HYDROmorphone 0.5 MG/0.5 ML SYRINGE IVP PRN; LACTATED RINGERS 1,000 ML IV SCH; LIDOCAINE 1% (10MG/ML) FOR IV START INTRADERMA PRN; METOCLOPRAMIDE 5 MG/ML 2 ML VIAL IVP PRN; ONDANSETRON 4 MG/2 ML VIAL IVP ONE
[2023-01-21] MEDS ORDERED: ETOMIDATE 2 MG/ML 10 ML VIAL ONE (10:58)
[2023-01-21] MEDS ORDERED: LIDOCAINE 2% INJ 20 MG/ML (2 ML VIAL) ONE (10:58)
[2023-01-21] MEDS ORDERED: ROCURONIUM 10 MG/ML (5 ML VIAL) IV ONE (10:58)
[2023-01-21] MEDS ORDERED: SUCCINYLCHOLINE CHLORIDE 200 MG/10 ML VIAL IV ONE (10:58)
[2023-01-21] MEDS ORDERED: fentaNYL (PF) 50 MCG/ML 2 ML AMP ONE (10:58)
[2023-01-21] MEDS ORDERED: NEOSTIGMINE 1 MG/ML 10 ML VIAL ONE (10:58)
[2023-01-21] MEDS ORDERED: GLYCOPYRROLATE 0.2 MG/ML 2 ML VIAL ONE (10:58)
[2023-01-21] MEDS ORDERED: HYDROmorphone (PF) 1 MG/ML ONE (10:58)
[2023-01-21] MEDS ORDERED: LACTATED RINGERS 1,000 ML IV ONE (12:10)
[2023-01-21 12:51] VITALS: TEMP 97
--- NOTE | 2023-01-21 13:11 | P.OP ---
Date of Procedure: 01/21/23 Preoperative Diagnosis: BPH Postoperative Diagnosis: same Procedure(s) Performed: TURP (bipolar) Implants: none Anesthesia: GUERRERO Surgeon: Landry Delgado Estimated Blood Loss (ml): 100 Pathology: other (prostate adenoma) Condition: stable Disposition: PACU Indications for Procedure: This is an 82-year-old male with history of urinary retention, has failed trial of voids in the past. Patient initially presented to the hospital with urinary retention and acute kidney injury secondary to bladder outlet obstruction. Underwent a cystoscopy that showed evidence of an obstructive prostate. Option of a transuretheral resection of the prostate was discussed with him. Discussed risk which includes but not limited to bleeding, infection, persistent retention, urinary incontinence, strictures, erectile dysfunction and retrograde ejaculation. Risk of anesthesia was also discussed with him. Description of Procedure: Patient brought to the operating room, general anesthesia was induced. He was prepped and draped in sterile fashion and placed in dorsal lithotomy position. Resectoscope fitted 25-Kazakh sheath was inserted per urethra, cystoscopy was performed which showed a moderately trabeculated bladder, with significant bilateral prostate lobe enlargement, and a small median lobe. The prostate was completely occlusive. Using the bipolar resectoscope the prostate was resected down to the surgical capsule, staying distal to the bladder neck, and proximal to the Veru. Hemostasis was achieved using cautery. All prostate adenoma tissue was irrigated out. Repeat cystoscopy showed no evidence of bleeding or any residual prostate adenoma within the bladder. There was no injury to the ureteral orifices. The prostatic fossa was wide open. At this time the resectoscope was withdrawn and a 22-Kazakh Handy was placed with return of clear urine. The Handy was irrigated to clear. Patient tolerated the procedure well was taken to recovery in stable condition
[2023-01-21 13:58] VITALS: RESP 16
[2023-01-21 14:40] VITALS: BP 126/61
[2023-01-21 14:43] VITALS: PULSE 51
== END 2023-01-21 15:12 | disposition home or self-care (01) ==
LOC: OR 09:02
PROVIDERS: ATTEND Urology
DX: N41.1 Chronic prostatitis (principal); N40.0 Benign prostatic hyperplasia without lower urinary tract symptoms; E78.5 Hyperlipidemia, unspecified; I10 Essential (primary) hypertension; E07.9 Disorder of thyroid, unspecified; Z90.49 Acquired absence of other specified parts of digestive tract; Z90.89 Acquired absence of other organs; Z96.641 Presence of right artificial hip joint; Z87.891 Personal history of nicotine dependence; Z79.899 Other long term (current) drug therapy
CPT/HCPCS: 52601; 88305; J0330; J1100; J2710; J0690; J3010; J1580; J1170; J2001

== ENCOUNTER 2023-02-22 05:07 | Emergency (ER) | payer MEDICARE ==
[2023-02-22 06:10] LABS: Appearance,Urine Turbid (Clear); Bilirubin,Urine Negative (Negative); Blood,Urine Large (Negative); Color,Urine Red; Glucose,Urine (UA) Negative (Negative); Ketones,Urine Negative (Negative); Leukocyte Esterase,Urine Large (Negative); Nitrite,Urine Negative (Negative); PH, Urine 6.5 (5.0-8.0); Protein,Urine 2+ (Negative); RBC,Urine >182 /hpf (0-5); Urobilinogen,Urine <2.0 mg/dL (<2.0); WBC,Urine 159 /hpf (0-5)
[2023-02-22 06:12] LABS: Specific Gravity,Urine 1.015 (1.001-1.035)
[2023-02-22] MEDS ORDERED: CEPHALEXIN 500 MG CAP PO STA (07:50)
--- NOTE | 2023-02-22 07:57 | ED ---
General Adult HPI - General Chief complaint: Urogenital Stated complaint: Blood in Urine Time Seen by Provider: 02/22/23 05:15 Source: patient Mode of arrival: ambulatory Limitations: no limitations - History of Present Illness Initial comments: 82-year-old male presents to the emergency room for hematuria. One month ago patient had transurethral resection of the prostate and had a Steward catheter which was in place for 1 week after the procedure. States that the Steward was removed almost one month ago and patient has been able to void on his own. This morning the patient began having bright red blood in his urine. Denies fever. No suprapubic pain. He denies any fevers. Patient does not take any blood thinners. Not currently on any in a parents. No other alleviating, precipitating or modifying factors - Related Data Home Medications Medication Instructions Recorded Confirmed Levothyroxine Sodium [Synthroid] 125 mcg PO QAM 09/06/22 01/17/23 Vitamin D(Unknown Dose) 1 tab PO DAILY 09/06/22 01/17/23 Bisoprolol [Zebeta] 5 mg PO QAM 01/17/23 01/17/23 amLODIPine [Norvasc] 2.5 mg PO QAM 01/17/23 01/17/23 Ciprofloxacin HCl [Cipro] 500 mg PO BID 01/21/23 01/21/23 Previous Rx's Medication Instructions Recorded Atorvastatin [Lipitor] 40 mg PO HS #30 tab 09/11/22 Tamsulosin [Flomax] 0.4 mg PO PC-BRKFST #30 cap 12/12/22 Phenazopyridine HCl [Pyridium] 100 mg PO TID #10 tab 01/21/23 Cephalexin [Keflex] 500 mg PO Q6HR #28 cap 02/22/23 Allergies Allergy/AdvReac Type Severity Reaction Status Date / Time No Known Allergies Allergy Verified 02/22/23 05:13 Review of Systems ROS Statement: Those systems with pertinent positive or pertinent negative responses have been documented in the HPI. ROS Other: All systems not noted in ROS Statement are negative. Past Medical History Past Medical History: GI Bleed, Hyperlipidemia, Hypertension, Prostate Disorder, Thyroid Disorder Additional Past Medical History / Comment(s): Has steward catheter for urinary retention. Recent hospitalization 12/11/22-12/12/22 for urinary retention/acute kidney injury. Enlarged prostate. Hx GI bleed, low Hgb in Aug 2022, Coumadin was discontinued at that time. Hx phlebitis. History of Any Multi-Drug Resistant Organisms: None Reported Past Surgical History: Appendectomy, Joint Replacement, Tonsillectomy Additional Past Surgical History / Comment(s): intestinal surgery. right hip replacement 2011, colonoscopy. Past Anesthesia/Blood Transfusion Reactions: No Reported Reaction, Motion Sickness Past Psychological History: No Psychological Hx Reported Smoking Status: Former smoker Past Alcohol Use History: None Reported Past Drug Use History: None Reported - Past Family History Father Family Medical History: No Reported History Mother Family Medical History: No Reported History Son(s) Family Medical History: Deep Vein Thrombosis (DVT) General Exam Limitations: no limitations General appearance: alert, in no apparent distress Head exam: Present: atraumatic, normocephalic, normal inspection Eye exam: Present: normal appearance, PERRL, EOMI. Absent: scleral icterus, conjunctival injection, periorbital swelling ENT exam: Present: normal exam, mucous membranes moist Neck exam: Present: normal inspection. Absent: tenderness, meningismus, lymphadenopathy Respiratory exam: Present: normal lung sounds bilaterally. Absent: respiratory distress, wheezes, rales, rhonchi, stridor Cardiovascular Exam: Present: regular rate, normal rhythm, normal heart sounds. Absent: systolic murmur, diastolic murmur, rubs, gallop, clicks GI/Abdominal exam: Present: soft, distended, normal bowel sounds. Absent: tenderness, guarding, rebound, rigid Extremities exam: Present: normal inspection, full ROM, normal capillary refill. Absent: tenderness, pedal edema, joint swelling, calf tenderness Back exam: Present: normal inspection Neurological exam: Present: alert, oriented X3, CN II-XII intact Psychiatric exam: Present: normal affect, normal mood Skin exam: Present: warm, dry, intact, normal color. Absent: rash Course Vital Signs 02/22/23 05:10 Temperature 97.7 F Pulse Rate 61 Respiratory 18 Rate Blood Pressure 111/60 O2 Sat by Pulse 100 Oximetry Medical Decision Making - Medical Decision Making Was pt. sent in by a medical professional or institution (, PA, MUSIC EDUCATION ADJUNCT PROFESSOR, urgent care, hospital, or fci...) When possible be specific @ -No Did you speak to anyone other than the patient for history (EMS, parent, family, police, friend...)? What history was obtained from this source @ -No Did you review nursing and triage notes (agree or disagree)? Why? @ -I reviewed and agree with nursing and triage notes Were old charts reviewed (outside hosp., previous admission, EMS record, old EKG, old radiological studies, urgent care reports/EKG's, fci records)? Report findings @ -Review patient's previous chart from his TURP procedure which was completed on January 21 Differential Diagnosis (chest pain, altered mental status, abdominal pain women, abdominal pain men, vaginal bleeding, weakness, fever, dyspnea, syncope, headache, dizziness, GI bleed, back pain, seizure, CVA, palpatations, mental health, musculoskeletal)? @ -Bladder cancer, nephrolithiasis, UTI, trauma EKG interpreted by me (3pts min.). @ -Not done X-rays interpreted by me (1pt min.). @ -None done CT interpreted by me (1pt min.). @ -None done U/S interpreted by me (1pt. min.). @ -None done What testing was considered but not performed or refused? (CT, X-rays, U/S, labs)? Why? @ -None What meds were considered but not given or refused? Why? @ -None Did you discuss the management of the patient with other professionals (professionals i.e. , PA, MUSIC EDUCATION ADJUNCT PROFESSOR, lab, RT, psych nurse, social and political studies professor, roll contour grinder, teacher, operations officer, case management manager)? Give summary @ -No Was smoking cessation discussed for >3mins.? @ -No Was critical care preformed (if so, how long)? @ -No Were there social determinants of health that impacted care today? How? (Homelessness, low income, unemployed, alcoholism, drug addiction, transportation, low edu. Level, literacy, decrease access to med. care, half-way, rehab)? @ -No Was there de-escalation of care discussed even if they declined (Discuss DNR or withdrawal of care, Hospice)? DNR status @ -No What co-morbidities impacted this encounter? (DM, HTN, Smoking, COPD, CAD, Cancer, CVA, ARF, Chemo, Hep., AIDS, mental health diagnosis, sleep apnea, morbid obesity)? @ -BPH Was patient admitted / discharged? Hospital course, mention meds given and route, prescriptions, significant lab abnormalities, going to OR and other pertinent info. @ -Upon arrival the patient was placed into room 16. Thorough history and physical exam is performed. Patient is bladder scanned and has almost 700 mL of urine in his bladder. He is straight cath. Sample sent for urinalysis. Does demonstrate red blood cells and white blood cells. Patient is covered with antibiotics. Specimen will be sent for culture. Patient will be discharged home with the Steward catheter in place as well as on antibiotics. He is to fol low-up with his urologist for removal. Return for any new or worsening symptoms. Catheter was irrigated until clear. Patient was agreeable to this plan and was discharged in stable condition Undiagnosed new problem with uncertain prognosis? @ -Yes Drug Therapy requiring intensive monitoring for toxicity (Heparin, Nitro, Insulin, Cardizem)? @ -No Were any procedures done? @ -Steward catheter placement Diagnosis/symptom? @ -Acute hematuria Acute, or Chronic, or Acute on Chronic? @ -Acute Uncomplicated (without systemic symptoms) or Complicated (systemic symptoms)? @ -complicated Side effects of treatment? @ -no Exacerbation, Progression, or Severe Exacerbation? @ -No Poses a threat to life or bodily function? How? (Chest pain, [place], [place], pneumonia, PE, COPD, DKA, ARF, appy, cholecystitis, CVA, Diverticulitis, Homicidal, Suicidal, threat to staff... and all critical care pts) @ -No - Lab Data Lab Results 02/22/23 Range/Units 05:15 Urine Color Red Urine Appearance Turbid (Clear) Urine pH 6.5 (5.0-8.0) Ur Specific [place] 1.015 (1.001-1.035) Urine Protein 2+ H (Negative) Urine Glucose (UA) Negative (Negative) Urine Ketones Negative (Negative) Urine Blood Large H (Negative) Urine Nitrite Negative (Negative) Urine Bilirubin Negative (Negative) Urine Urobilinogen <2.0 (<2.0) mg/dL Ur Leukocyte Esterase Large H (Negative) Urine RBC >182 H (0-5) /hpf Urine WBC 159 H (0-5) /hpf Disposition Clinical Impression: Urinary retention, Hematuria Disposition: HOME SELF-CARE Condition: Stable Instructions (If sedation given, give patient instructions): Urinary Retention in Men (ED) Additional Instructions: Please take antibiotics as directed. Your urine specimen is sent for culture. Call the urologist on Friday. They will have to take out your catheter. Return for any new or worsening symptoms Prescriptions: Cephalexin [Keflex] 500 mg PO Q6HR #28 cap Is patient prescribed a controlled substance at d/c from ED?: No Referrals: Sandoval Thibodeaux MD [Primary Care Provider] - 1-2 days Time of Disposition: 07:56
[2023-02-22 08:34] VITALS: BP 139/74; PULSE 78; RESP 15; TEMP 98
== END 2023-02-22 08:33 | disposition home or self-care (01) ==
LOC: EC 05:07
DX: R33.9 Retention of urine, unspecified (principal); R31.9 Hematuria, unspecified; I10 Essential (primary) hypertension; E07.9 Disorder of thyroid, unspecified; Z87.891 Personal history of nicotine dependence; Z79.890 Hormone replacement therapy; Z79.899 Other long term (current) drug therapy
CPT/HCPCS: 51702; 51798; 81001; 87086; 99284

== ENCOUNTER 2023-02-22 20:33 | Emergency (ER) | payer MEDICARE ==
[2023-02-22 20:40] VITALS: TEMP 98.7
[2023-02-22] MEDS ORDERED: LIDOCAINE 2% URO-JET JELLY 5 ML KIT URETHRAL ONE (21:59)
[2023-02-22 22:08] LABS: ALT 107 U/L (4-49); African American GFR (CKD) 56 (>60 ml/min/1.73 sqM); Albumin 3.9 g/dL (3.5-5.0); Anion Gap 11 mmol/L; Blood Urea Nitrogen 40 mg/dL (9-20); Calcium 9.2 mg/dL (8.4-10.2); Carbon Dioxide 21 mmol/L (22-30); Chloride 104 mmol/L (98-107); Glucose 103 mg/dL (74-99); Lipase 45 U/L (23-300); Non-African American GFR(CKD) 48 (>60 ml/min/1.73 sqM); Sodium 136 mmol/L (137-145); Total Bilirubin 0.9 mg/dL (0.2-1.3); Total Protein 6.9 g/dL (6.3-8.2)
[2023-02-22 22:12] LABS: AST 92 U/L (17-59); Alkaline Phosphatase 514 U/L (38-126); Magnesium 1.8 mg/dL (1.6-2.3); Potassium 5.3 mmol/L (3.5-5.1)
[2023-02-22 22:19] LABS: Basophils % (A) 0 %; Eosinophils # (A) 0.1 k/uL (0-0.7); Eosinophils % (A) 1 %; HCT 29.9 % (39.0-53.0); HGB 9.9 gm/dL (13.0-17.5); Lymphocytes # (A) 0.8 k/uL (1.0-4.8); Lymphocytes % (A) 13 %; MCHC 33.3 g/dL (31.0-37.0); MCV 93.1 fL (80.0-100.0); Mean Platelet Volume 7.9; Monocytes # (A) 0.6 k/uL (0-1.0); Monocytes % (A) 10 %; Neutrophils # (A) 4.5 k/uL (1.3-7.7); Neutrophils % (A) 74 %; Platelet Count 117 k/uL (150-450); RBC 3.21 m/uL (4.30-5.90); RDW 14.6 % (11.5-15.5)
--- NOTE | 2023-02-22 22:27 | ED ---
General Adult HPI - General Chief complaint: Urogenital Stated complaint: Blood In Urine Time Seen by Provider: 02/22/23 21:07 Source: family Mode of arrival: wheelchair Limitations: no limitations - History of Present Illness Initial comments: This is a 82-year-old male with a past medical history including recent TURP procedure performed on 01/21/2023 was essentially emergency department for a clotted Steward catheter. The patient was seen in the emergency department last night for urinary retention and a Steward catheter was placed. The patient stated that the catheter was irrigated significantly and had clear urine when he was discharge in the morning. The patient stated that throughout the evening today, he noted that he had decreased urinary output and had dark blood in his Steward catheter. The patient did not complain of any pain or distress however. The patient then came back to the emergency department. The patient denied any other acute discomfort at this time. - Related Data Home Medications Medication Instructions Recorded Confirmed Levothyroxine Sodium [Synthroid] 125 mcg PO QAM 09/06/22 01/17/23 Vitamin D(Unknown Dose) 1 tab PO DAILY 09/06/22 01/17/23 Bisoprolol [Zebeta] 5 mg PO QAM 01/17/23 01/17/23 amLODIPine [Norvasc] 2.5 mg PO QAM 01/17/23 01/17/23 Ciprofloxacin HCl [Cipro] 500 mg PO BID 01/21/23 01/21/23 Previous Rx's Medication Instructions Recorded Atorvastatin [Lipitor] 40 mg PO HS #30 tab 09/11/22 Tamsulosin [Flomax] 0.4 mg PO PC-BRKFST #30 cap 12/12/22 Phenazopyridine HCl [Pyridium] 100 mg PO TID #10 tab 01/21/23 Cephalexin [Keflex] 500 mg PO Q6HR #28 cap 02/22/23 Allergies Allergy/AdvReac Type Severity Reaction Status Date / Time No Known Allergies Allergy Verified 02/22/23 20:40 Review of Systems ROS Statement: Those systems with pertinent positive or pertinent negative responses have been documented in the HPI. ROS Other: All systems not noted in ROS Statement are negative. Past Medical History Past Medical History: GI Bleed, Hyperlipidemia, Hypertension, Prostate Disorder, Thyroid Disorder Additional Past Medical History / Comment(s): Has steward catheter for urinary retention. Recent hospitalization 12/11/22-12/12/22 for urinary retention/acute kidney injury. Enlarged prostate. Hx GI bleed, low Hgb in Aug 2022, Coumadin was discontinued at that time. Hx phlebitis. History of Any Multi-Drug Resistant Organisms: None Reported Past Surgical History: Appendectomy, Joint Replacement, Tonsillectomy Additional Past Surgical History / Comment(s): intestinal surgery. right hip replacement 2011, colonoscopy. Past Anesthesia/Blood Transfusion Reactions: No Reported Reaction, Motion Sickness Past Psychological History: No Psychological Hx Reported Smoking Status: Former smoker Past Alcohol Use History: None Reported Past Drug Use History: None Reported - Past Family History Father Family Medical History: No Reported History Mother Family Medical History: No Reported History Son(s) Family Medical History: Deep Vein Thrombosis (DVT) General Exam Limitations: no limitations General appearance: alert, in no apparent distress Head exam: Present: atraumatic, normocephalic, normal inspection Eye exam: Present: normal appearance, PERRL Pupils: Present: normal accommodation ENT exam: Present: normal exam, normal oropharynx, mucous membranes moist Neck exam: Present: normal inspection, full ROM Respiratory exam: Present: normal lung sounds bilaterally Cardiovascular Exam: Present: regular rate, normal rhythm, normal heart sounds GI/Abdominal exam: Present: soft, normal bowel sounds exam: Present: normal inspection, other (Steward catheter in place with dark blood in the tubing and clot noted at the exit to the Steward catheter bag) Extremities exam: Present: normal inspection, full ROM Back exam: Present: normal inspection, full ROM Neurological exam: Present: alert, oriented X3, CN II-XII intact Psychiatric exam: Present: normal affect, normal mood Skin exam: Present: warm, dry Course Vital Signs 02/22/23 20:35 Temperature 98.7 F Pulse Rate 68 Respiratory 18 Rate Blood Pressure 156/90 O2 Sat by Pulse 98 Oximetry Medical Decision Making - Medical Decision Making Was pt. sent in by a medical professional or institution (, PA, BLOW MOLD MACHINE OPERATOR, urgent care, hospital, or residential...) When possible be specific @ -No Did you speak to anyone other than the patient for history (EMS, parent, family, police, friend...)? What history was obtained from this source @ -No Did you review nursing and triage notes (agree or disagree)? Why? @ -I reviewed and agree with nursing and triage notes Were old charts reviewed (outside hosp., previous admission, EMS record, old EKG, old radiological studies, urgent care reports/EKG's, residential records)? Report findings @ -No old charts were reviewed Differential Diagnosis (chest pain, altered mental status, abdominal pain women, abdominal pain men, vaginal bleeding, weakness, fever, dyspnea, syncope, headache, dizziness, GI bleed, back pain, seizure, CVA, palpatations, mental health)? @ -Acute urinary retention, Steward catheter malfunction, UTI EKG interpreted by me (3pts min.). @ -None X-rays interpreted by me (1pt min.). @ -None done CT interpreted by me (1pt min.). @ -None done U/S interpreted by me (1pt. min.). @ -None done What testing was considered but not performed or refused? (CT, X-rays, U/S, labs)? Why? @ -None What meds were considered but not given or refused? Why? @ -None Did you discuss the management of the patient with other professionals (prof fifi i.e. , PA, BLOW MOLD MACHINE OPERATOR, lab, RT, psych nurse, social media executive, application systems engineer, teacher, property disposal officer, social work case manager)? Give summary @ -Yes, the urologist on-call, Dr. Murrieta was contacted and did state that the patient could be admitted to the hospital for continued irrigation however the patient could also be discharged home if a larger, 20-Kittitian or greater Steward catheter was placed and clots were irrigated. Was smoking cessation discussed for >3mins.? @ -No Was critical care preformed (if so, how long)? @ -No Were there social determinants of health that impacted care today? How? (H omelessness, low income, unemployed, alcoholism, drug addiction, transportation, low edu. Level, literacy, decrease access to med. care, long term, rehab)? @ -No Was there de-escalation of care discussed even if they declined (Discuss DNR or withdrawal of care, Hospice)? DNR status @ -No What co-morbidities impacted this encounter? (DM, HTN, Smoking, COPD, CAD, Cancer, CVA, ARF, Chemo, Hep., AIDS, mental health diagnosis, sleep apnea, morbid obesity)? @ -Recent TURP procedure Was patient admitted / discharged? Hospital course, mention meds given and route, prescriptions, significant lab abnormalities, going to OR and other pertinent info. @ -The patient was seen and evaluated emergency department. Physical exam, the patient was resting in bed without any acute distress. Vital signs admission were stable. Due to the nature the patient's complaints, initially laboratory workup was ordered however the patient did not complain of any pain or distress therefore was no longer needed at this time. The Steward catheter was initially a 16-Kittitian and a 22-Kittitian Steward catheter was placed without any issues in emergency department. Clots were removed and the catheter was irrigated substantially to have clear urine obtained. The patient continued to have no s ymptoms and was stable for discharge home per urology recommendations. The patient was also told to follow-up with his urologist on Friday for further workup and evaluation. The patient was agreeable to this and all his questions were answered. The patient was discharged home in stable condition. Undiagnosed new problem with uncertain prognosis? @ -No Drug Therapy requiring intensive monitoring for toxicity (Heparin, Nitro, Insulin, Cardizem)? @ -No Were any procedures done? @ -No Diagnosis/symptom? @ -Acute urinary retention, Steward catheter malfunction, hematuria Acute, or Chronic, or Acute on Chronic? @ -Acute on chronic Uncomplicated (without systemic symptoms) or Complicated (systemic symptoms)? @ -Uncomplicated Side effects of treatment? @ -No Exacerbation, Progression, or Severe Exacerbation? @ -No Poses a threat to life or bodily function? How? (Chest pain, [place], [place], pneumonia, PE, COPD, DKA, ARF, appy, cholecystitis, CVA, Diverticulitis, Homicidal, Suici jeanette, threat to staff... and all critical care pts) @ -No - Lab Data Result diagrams: 02/22/23 21:27 Lab Results 02/22/23 Range/Units 21:27 Sodium 136 L (137-145) mmol/L Potassium 5.3 H (3.5-5.1) mmol/L Chloride 104 (98-107) mmol/L Carbon Dioxide 21 L (22-30) mmol/L Anion Gap 11 mmol/L BUN 40 H (9-20) mg/dL Creatinine 1.36 H (0.66-1.25) mg/dL Est GFR (CKD-EPI)AfAm 56 (>60 ml/min/1.73 sqM) Est GFR (CKD-EPI)NonAf 48 (>60 ml/min/1.73 sqM) Glucose 103 H (74-99) mg/dL Calcium 9.2 (8.4-10.2) mg/dL Magnesium 1.8 (1.6-2.3) mg/dL Total Bilirubin 0.9 (0.2-1.3) mg/dL AST 92 H (17-59) U/L ALT 107 H (4-49) U/L Alkaline Phosphatase 514 H (38-126) U/L Total Protein 6.9 (6.3-8.2) g/dL Albumin 3.9 (3.5-5.0) g/dL Lipase 45 (23-300) U/L Disposition Clinical Impression: Hematuria, Steward catheter problem Disposition: HOME SELF-CARE Condition: Stable Instructions (If sedation given, give patient instructions): Steward Catheter Placement and Care (ED), Hematuria (ED) Is patient prescribed a controlled substance at d/c from ED?: No Referrals: Sandoval Thibodeaux MD [Primary Care Provider] - 1-2 days Landry Delgado MD [STAFF PHYSICIAN] - 1-2 days Time of Disposition: 22:00
[2023-02-22 23:19] VITALS: BP 145/86; PULSE 75; RESP 16
== END 2023-02-22 23:19 | disposition home or self-care (01) ==
LOC: EC 20:33
DX: T85.9XXA Unspecified complication of internal prosthetic device, implant and graft, initial encounter (principal); R31.9 Hematuria, unspecified; I10 Essential (primary) hypertension; E07.9 Disorder of thyroid, unspecified; Z87.891 Personal history of nicotine dependence; Z79.899 Other long term (current) drug therapy; Z79.890 Hormone replacement therapy
CPT/HCPCS: 36415; 51798; 80053; 83690; 83735; 85025; 99283

== ENCOUNTER 2023-03-07 09:00 | Emergency (ER) | payer MEDICARE ==
[2023-03-07 09:09] VITALS: RESP 16
[2023-03-07 09:50] LABS: Basophils % (A) 0 %; Eosinophils # (A) 0.1 k/uL (0-0.7); Eosinophils % (A) 1 %; HCT 30.8 % (39.0-53.0); HGB 10.6 gm/dL (13.0-17.5); Lymphocytes # (A) 0.5 k/uL (1.0-4.8); Lymphocytes % (A) 7 %; MCHC 34.4 g/dL (31.0-37.0); Mean Platelet Volume 8.3; Monocytes # (A) 0.6 k/uL (0-1.0); Monocytes % (A) 8 %; Neutrophils % (A) 82 %; Platelet Count 110 k/uL (150-450); RBC 3.31 m/uL (4.30-5.90); RDW 14.9 % (11.5-15.5); WBC 7.3 k/uL (3.8-10.6)
[2023-03-07] MEDS ORDERED: LIDOCAINE 2% URO-JET JELLY 5 ML KIT URETHRAL ONE (09:51)
--- NOTE | 2023-03-07 09:53 | ED ---
General Adult HPI - General Chief complaint: Urogenital Stated complaint: Blood in Urine Time Seen by Provider: 03/07/23 09:10 Source: patient, RN notes reviewed, old records reviewed Mode of arrival: ambulatory Limitations: no limitations - History of Present Illness Initial comments: 82-year-old male 6 weeks status post transurethral prostatectomy presents with hematuria. Patient has had recurrent issues and his had a Steward catheter on and off since the time of his surgery. He has Steward catheter removed approximately one week ago and has been doing well. This morning he developed hematuria with clots. He's had no fever. No vomiting. - Related Data Home Medications Medication Instructions Recorded Confirmed Levothyroxine Sodium [Synthroid] 125 mcg PO QAM 09/06/22 01/17/23 Vitamin D(Unknown Dose) 1 tab PO DAILY 09/06/22 01/17/23 Bisoprolol [Zebeta] 5 mg PO QAM 01/17/23 01/17/23 amLODIPine [Norvasc] 2.5 mg PO QAM 01/17/23 01/17/23 Ciprofloxacin HCl [Cipro] 500 mg PO BID 01/21/23 01/21/23 Previous Rx's Medication Instructions Recorded Atorvastatin [Lipitor] 40 mg PO HS #30 tab 09/11/22 Tamsulosin [Flomax] 0.4 mg PO PC-BRKFST #30 cap 12/12/22 Phenazopyridine HCl [Pyridium] 100 mg PO TID #10 tab 01/21/23 Cephalexin [Keflex] 500 mg PO Q6HR #28 cap 02/22/23 Cephalexin [Keflex] 500 mg PO Q12HR #20 cap 03/07/23 Allergies Allergy/AdvReac Type Severity Reaction Status Date / Time No Known Allergies Allergy Verified 03/07/23 09:04 Review of Systems ROS Statement: Those systems with pertinent positive or pertinent negative responses have been documented in the HPI. ROS Other: All systems not noted in ROS Statement are negative. Past Medical History Past Medical History: GI Bleed, Hyperlipidemia, Hypertension, Prostate Disorder, Thyroid Disorder Additional Past Medical History / Comment(s): Has steward catheter for urinary retention. Recent hospitalization 12/11/22-12/12/22 for urinary retention/acute kidney injury. Enlarged prostate. Hx GI bleed, low Hgb in Aug 2022, Coumadin was discontinued at that time. Hx phlebitis. History of Any Multi-Drug Resistant Organisms: None Reported Past Surgical History: Appendectomy, Joint Replacement, Tonsillectomy Additional Past Surgical History / Comment(s): intestinal surgery. right hip replacement 2011, colonoscopy. Past Anesthesia/Blood Transfusion Reactions: No Reported Reaction, Motion Sickness Past Psychological History: No Psychological Hx Reported Smoking Status: Former smoker Past Alcohol Use History: None Reported Past Drug Use History: None Reported - Past Family History Father Family Medical History: No Reported History Mother Family Medical History: No Reported History Son(s) Family Medical History: Deep Vein Thrombosis (DVT) General Exam Limitations: no limitations General appearance: alert, in no apparent distress Head exam: Present: atraumatic, normocephalic Eye exam: Present: normal appearance, PERRL ENT exam: Present: normal exam Neck exam: Present: normal inspection. Absent: tenderness, meningismus Respiratory exam: Present: normal lung sounds bilaterally. Absent: respiratory distress, wheezes Cardiovascular Exam: Present: regular rate, normal rhythm GI/Abdominal exam: Present: soft. Absent: distended, tenderness, guarding Extremities exam: Present: normal inspection, normal capillary refill. Absent: pedal edema Neurological exam: Present: alert, oriented X3 Psychiatric exam: Present: normal affect, normal mood Skin exam: Present: warm, dry, intact. Absent: cyanosis, diaphoretic Course Vital Signs 03/07/23 09:05 Temperature 98 F Pulse Rate 68 Respiratory 16 Rate Blood Pressure 145/66 O2 Sat by Pulse 98 Oximetry Medical Decision Making - Medical Decision Making Was pt. sent in by a medical professional or institution (, PA, REPACK ROOM WORKER, urgent care, hospital, or usp...) When possible be specific @ -No Did you speak to anyone other than the patient for history (EMS, parent, family, police, friend...)? What history was obtained from this source @ -Patient's and daughter who are at bedside Did you review nursing and triage notes (agree or disagree)? Why? @ -I reviewed and agree with nursing and triage notes Were old charts reviewed (outside hosp., previous admission, EMS record, old EKG, old radiological studies, urgent care reports/EKG's, usp records)? Report findings @ -No old charts were reviewed Differential Diagnosis (chest pain, altered mental status, abdominal pain women, abdominal pain men, vaginal bleeding, weakness, fever, dyspnea, syncope, headache, dizziness, GI bleed, back pain, seizure, CVA, palpatations, mental health, musculoskeletal)? @ -[UTI, hematuria, urinary retention EKG interpreted by me (3pts min.). @ -As above X-rays interpreted by me (1pt min.). @ -None done CT interpreted by me (1pt min.). @ -None done U/S interpreted by me (1pt. min.). @ -None done What testing was considered but not performed or refused? (CT, X-rays, U/S, labs)? Why? @ -None What meds were considered but not given or refused? Why? @ -None Did you discuss the management of the patient with other professionals (professionals i.e. , PA, REPACK ROOM WORKER, lab, RT, psych nurse, manager social responsibility, print decorator, teacher, security officer supervisor, manager of quality)? Give summary @ -No Was smoking cessation discussed for >3mins.? @ -No Was critical care preformed (if so, how long)? @ -No Were there social determinants of health that impacted care today? How? (Homelessness, low income, unemployed, alcoholism, drug addiction, transportation, low edu. Level, literacy, decrease access to med. care, nursing home, rehab)? @ -No Was there de-escalation of care discussed even if they declined (Discuss DNR or withdrawal of care, Hospice)? DNR status @ -No What co-morbidities impacted this encounter? (DM, HTN, Smoking, COPD, CAD, Cancer, CVA, ARF, Chemo, Hep., AIDS, mental health diagnosis, sleep apnea, morbid obesity)? @ -[Benign prostatic hypertrophy status post TURP Was patient admitted / discharged? Hospital course, mention meds given and route, prescriptions, significant lab abnormalities, going to OR and other pertinent info. @ -[8-year-old male with hematuria and urinary frequency. Patient passing several clots, states is difficult to urinate. He has had TURP procedure 6 weeks ago. No fever. No vomiting. Hemoglobin is improved from prior. Creatinine is 1.5 which is slightly elevated. Undiagnosed new problem with uncertain prognosis? @ -No Drug Therapy requiring intensive monitoring for toxicity (Heparin, Nitro, Insulin, Cardizem)? @ -No Were any procedures done? @ -No Diagnosis/symptom? @ -[Hematuria Acute, or Chronic, or Acute on Chronic? @ -[Acute, recurrent Uncomplicated (without systemic symptoms) or Complicated (systemic symptoms)? @ -default Side effects of treatment? @ -No Exacerbation, Progression, or Severe Exacerbation? @ -No Poses a threat to life or bodily function? How? (Chest pain, USA, IA, pneumonia, PE, COPD, DKA, ARF, appy, cholecystitis, CVA, Diverticulitis, Homicidal, Suicidal, threat to staff... and all critical care pts) @ -No - Lab Data Result diagrams: 03/07/23 09:30 03/07/23 09:30 Lab Results 03/07/23 03/07/23 03/07/23 Range/Units 09:10 09:30 09:30 WBC 7.3 (3.8-10.6) k/uL RBC 3.31 L (4.30-5.90) m/uL Hgb 10.6 L (13.0-17.5) gm/dL Hct 30.8 L (39.0-53.0) % MCV 93.0 (80.0-100.0) fL MCH 32.0 (25.0-35.0) pg MCHC 34.4 (31.0-37.0) g/dL RDW 14.9 (11.5-15.5) % Plt Count 110 L (150-450) k/uL MPV 8.3 Neutrophils % 82 % Lymphocytes % 7 % Monocytes % 8 % Eosinophils % 1 % Basophils % 0 % Neutrophils # 6.0 (1.3-7.7) k/uL Lymphocytes # 0.5 L (1.0-4.8) k/uL Monocytes # 0.6 (0-1.0) k/uL Eosinophils # 0.1 (0-0.7) k/uL Basophils # 0.0 (0-0.2) k/uL Sodium 135 L (137-145) mmol/L Potassium 5.0 (3.5-5.1) mmol/L Chloride 104 (98-107) mmol/L Carbon Dioxide 22 (22-30) mmol/L Anion Gap 9 mmol/L BUN 34 H (9-20) mg/dL Creatinine 1.51 H (0.66-1.25) mg/dL Est GFR (CKD-EPI)AfAm 49 (>60 ml/min/1.73 sqM) Est GFR (CKD-EPI)NonAf 43 (>60 ml/min/1.73 sqM) Glucose 110 H (74-99) mg/dL Calcium 9.4 (8.4-10.2) mg/dL Total Bilirubin 1.0 (0.2-1.3) mg/dL AST 238 H (17-59) U/L ALT 243 H (4-49) U/L Alkaline Phosphatase 957 H (38-126) U/L Total Protein 7.2 (6.3-8.2) g/dL Albumin 4.0 (3.5-5.0) g/dL Urine Color Red Urine Appearance Bloody (Clear) Urine pH 7.0 (5.0-8.0) Ur Specific [place] 1.025 (1.001-1.035) Urine Protein NORM (Negative) Urine Glucose (UA) Negative (Negative) Urine Ketones Negative (Negative) Urine Blood Negative (Negative) Urine Nitrite Negative (Negative) Urine Bilirubin Negative (Negative) Urine Urobilinogen <2.0 (<2.0) mg/dL Ur Leukocyte Esterase Moderate (Negative) Urine RBC >182 H (0-5) /hpf Urine WBC >182 H (0-5) /hpf Urine Mucus Occasional H (None) /hpf Disposition Clinical Impression: Steward catheter in place, Hematuria Disposition: HOME SELF-CARE Condition: Good Instructions (If sedation given, give patient instructions): Hematuria (ED) Prescriptions: Cephalexin [Keflex] 500 mg PO Q12HR #20 cap Is patient prescribed a controlled substance at d/c from ED?: No Referrals: Sandoval Thibodeaux MD [Primary Care Provider] - 1-2 days Landry Delgado MD [STAFF PHYSICIAN] - 1-2 days Time of Disposition: 10:52
[2023-03-07 10:21] LABS: Appearance,Urine Bloody (Clear); Color,Urine Red; Glucose,Urine (UA) Negative (Negative); Ketones,Urine Negative (Negative); Mucus,Urine Occasional /hpf; Protein,Urine NORM (Negative); RBC,Urine >182 /hpf (0-5); Specific Gravity,Urine 1.025 (1.001-1.035); WBC,Urine >182 /hpf (0-5)
[2023-03-07 10:22] LABS: ALT 243 U/L (4-49); AST 238 U/L (17-59); African American GFR (CKD) 49 (>60 ml/min/1.73 sqM); Alkaline Phosphatase 957 U/L (38-126); Anion Gap 9 mmol/L; Blood Urea Nitrogen 34 mg/dL (9-20); Calcium 9.4 mg/dL (8.4-10.2); Carbon Dioxide 22 mmol/L (22-30); Chloride 104 mmol/L (98-107); Glucose 110 mg/dL (74-99); Non-African American GFR(CKD) 43 (>60 ml/min/1.73 sqM); Sodium 135 mmol/L (137-145); Total Protein 7.2 g/dL (6.3-8.2)
[2023-03-07 10:22] LABS: Bilirubin,Urine Negative (Negative); Blood,Urine Negative (Negative); Leukocyte Esterase,Urine Moderate (Negative); Nitrite,Urine Negative (Negative); Urobilinogen,Urine <2.0 mg/dL (<2.0)
[2023-03-07 11:57] VITALS: BP 144/68; PULSE 70; TEMP 97.6
== END 2023-03-07 12:06 | disposition home or self-care (01) ==
LOC: EC 09:00
DX: R31.9 Hematuria, unspecified (principal); I10 Essential (primary) hypertension; E78.5 Hyperlipidemia, unspecified; E07.9 Disorder of thyroid, unspecified; B96.5 Pseudomonas (aeruginosa) (mallei) (pseudomallei) as the cause of diseases classified elsewhere; Z79.890 Hormone replacement therapy; Z79.899 Other long term (current) drug therapy; Z87.891 Personal history of nicotine dependence
CPT/HCPCS: 36415; 51702; 80053; 81001; 85025; 87077; 87086; 87186; 99283

== ENCOUNTER 2023-06-28 10:36 | Emergency (ER) | payer MEDICARE ==
[2023-06-28 10:58] VITALS: TEMP 97.6
[2023-06-28] MEDS ORDERED: DIPH,PERTUS(ACELL)TETVAC-LF 0.5 ML VIAL IM ONE (11:03)
[2023-06-28] MEDS ORDERED: CEPHALEXIN 500 MG CAP PO STA (11:03)
[2023-06-28] MEDS ORDERED: LIDOCAINE 1% INJ 10MG/ML (20 ML MDV) SQ ONE (11:03)
[2023-06-28] MEDS ORDERED: GELATIN SPONGE,ABSORB (SMALL) 1 EACH SPONGE TOPICAL STA (11:13)
--- NOTE | 2023-06-28 11:41 | ED ---
Lower Extremity Injury HPI - General Chief Complaint: Extremity Injury, Lower Stated Complaint: fall left leg injury Time Seen by Provider: 06/28/23 10:53 Source: patient, family, RN notes reviewed Mode of arrival: ambulatory Limitations: no limitations - History of Present Illness Initial Comments: This is an 80-year-old male who presents to the emergency department for a left leg injury. States that about a week ago he tripped and fell and developed a puncture wound to the back of his left leg. This went through his jeans at the time. Denies hitting his head or sustaining any loss of consciousness. He has since had drainage from this wound, which is becoming bothersome. Denies any pain associated with this. He did not have this evaluated when it initially occurred. Unsure when his last tetanus vaccine was. - Related Data Home Medications Medication Instructions Recorded Confirmed Levothyroxine Sodium [Synthroid] 125 mcg PO QAM 09/06/22 01/17/23 Vitamin D(Unknown Dose) 1 tab PO DAILY 09/06/22 01/17/23 Bisoprolol [Zebeta] 5 mg PO QAM 01/17/23 01/17/23 amLODIPine [Norvasc] 2.5 mg PO QAM 01/17/23 01/17/23 Ciprofloxacin HCl [Cipro] 500 mg PO BID 01/21/23 01/21/23 Previous Rx's Medication Instructions Recorded Atorvastatin [Lipitor] 40 mg PO HS #30 tab 09/11/22 Tamsulosin [Flomax] 0.4 mg PO PC-BRKFST #30 cap 12/12/22 Phenazopyridine HCl [Pyridium] 100 mg PO TID #10 tab 01/21/23 Cephalexin [Keflex] 500 mg PO Q6HR #28 cap 02/22/23 Cephalexin [Keflex] 500 mg PO Q12HR #20 cap 03/07/23 Cephalexin [Keflex] 500 mg PO Q6HR 7 Days #28 cap 06/28/23 Allergies Allergy/AdvReac Type Severity Reaction Status Date / Time No Known Allergies Allergy Verified 06/28/23 10:42 Review of Systems ROS Statement: Those systems with pertinent positive or pertinent negative responses have been documented in the HPI. ROS Other: All systems not noted in ROS Statement are negative. Past Medical History Past Medical History: GI Bleed, Hyperlipidemia, Hypertension, Prostate Disorder, Thyroid Disorder Additional Past Medical History / Comment(s): Has steward catheter for urinary retention. Recent hospitalization 12/11/22-12/12/22 for urinary retention/acute kidney injury. Enlarged prostate. Hx GI bleed, low Hgb in Aug 2022, Coumadin was discontinued at that time. Hx phlebitis. History of Any Multi-Drug Resistant Organisms: None Reported Past Surgical History: Appendectomy, Joint Replacement, Tonsillectomy Additional Past Surgical History / Comment(s): intestinal surgery. right hip replacement 2011, colonoscopy. Past Anesthesia/Blood Transfusion Reactions: No Reported Reaction, Motion Sickness Past Psychological History: No Psychological Hx Reported Smoking Status: Former smoker Past Alcohol Use History: None Reported Past Drug Use History: None Reported - Past Family History Father Family Medical History: No Reported History Mother Family Medical History: No Reported History Son(s) Family Medical History: Deep Vein Thrombosis (DVT) General Exam Limitations: no limitations General appearance: alert, in no apparent distress Head exam: Present: atraumatic, normocephalic, normal inspection Respiratory exam: Present: normal lung sounds bilaterally. Absent: respiratory distress, wheezes, rales, rhonchi, stridor Cardiovascular Exam: Present: regular rate, normal rhythm, normal heart sounds. Absent: systolic murmur, diastolic murmur, rubs, gallop, clicks Neurological exam: Present: alert, oriented X3, CN II-XII intact Psychiatric exam: Present: normal affect, normal mood Skin exam: Present: other (2 cm laceration to the posterior aspect of the left thigh with active serous drainage. No overlying tenderness. No surrounding erythema or induration.) Course Vital Signs 06/28/23 06/28/23 10:39 11:43 Temperature 97.6 F Pulse Rate 67 53 L Respiratory 20 18 Rate Blood Pressure 172/75 107/56 O2 Sat by Pulse 94 L 97 Oximetry Medical Decision Making - Medical Decision Making This is an 82-year-old male who presents to the emergency department for a wound to the left leg. Was pt. sent in by a medical professional or institution? @ -No Did you speak to anyone other than the patient for history? @ -No Did you review nursing and triage notes? @ -Yes, and I agree, it is accurate with regards to the patient's symptoms. Were old charts reviewed? @ -No Differential Diagnosis? @ -Differential Wound: Laceration, ecchymosis, abrasion, this is not meant to be an all-inclusive list. EKG interpreted by me (3pts min.)? @ -Not obtained X-rays interpreted by me (1pt min.)? @ -Not obtained CT interpreted by me (1pt min.)? @ -Not obtained U/S interpreted by me (1pt. min.)? @ -Not obtained What testing was considered but not performed? (CT, X-rays, U/S, labs)? Why? @ -None What meds were considered but not given? Why? @ -None Did you discuss the management of the patient with other professionals? @ -No Did you reconcile home meds? @ -No Was smoking cessation discussed for >3mins.? @ -No Was critical care preformed (if so, how long)? @ -No Were there social determinants of health that impacted care today? How? (Homelessness, low income, unemployed, alcoholism, drug addiction, transportation, low edu. Level, literacy, decrease access to med. care, [facility], rehab)? @ -No Was there de-escalation of care discussed even if they declined? (Discuss DNR or withdrawal of care, Hospice)? @ -No What co-morbidities impacted this encounter? (DM, HTN, Smoking, COPD, CAD, Cancer, CVA, Hep., AIDS, mental health diagnosis, sleep apnea, morbid obesity)? @ -None Was patient admitted / discharged? @ -Dsicharged. Physical examination did reveal a wound with active serous drainage. Advised the patient that because it has been a week, we cannot close the wound as it can lead to infection. We can bandage this for the patient and start him on antibiotics to reduce the risk for infection. Patient is in agreement. Prescription for Keflex provided with dosing instructions reviewed. The wound was bandaged and the patient was discharged home in stable condition with instructions to follow up with his primary care provider. Undiagnosed new problem with uncertain prognosis? @ -None Drug Therapy requiring intensive monitoring for toxicity (Heparin, Nitro, Insulin, Cardizem)? @ -None Were any procedures done? @ -None Diagnosis/symptom? @ -Laceration, fall Acute, or Chronic, or Acute on Chronic? @ -Acute Uncomplicated (without systemic symptoms) or Complicated (systemic symptoms)? @ -Uncomplicated Side effects of treatment? @ -None Exacerbation, Progression, or Severe Exacerbation] @ -Not applicable Poses a threat to life or bodily function? @ -No Return precautions reviewed in depth, the patient is instructed to return to the emergency department with any new, worsening, or concerning symptoms. Patient verbalized understanding. This case was discussed in detail with the attending ED physician, Dr. Cole. Presentation, findings, and treatment plan discussed in detail as well. Disposition Clinical Impression: Laceration, Fall Disposition: HOME SELF-CARE Additional Instructions: Return to the emergency department with any new, worsening, or concerning symptoms. Take the antibiotic as prescribed for 7 days. Follow up with your primary care provider in a week to reevaluate healing. Prescriptions: Cephalexin [Keflex] 500 mg PO Q6HR 7 Days #28 cap Is patient prescribed a controlled substance at d/c from ED?: No Referrals: Sandoval Thibodeaux MD [Primary Care Provider] - 1-2 days
[2023-06-28 11:46] VITALS: BP 107/56; PULSE 53; RESP 18
== END 2023-06-28 12:02 | disposition home or self-care (01) ==
LOC: EC 10:36
DX: S71.112A Laceration without foreign body, left thigh, initial encounter (principal); E07.9 Disorder of thyroid, unspecified; I10 Essential (primary) hypertension; Z87.891 Personal history of nicotine dependence; Z79.890 Hormone replacement therapy; Z23 Encounter for immunization; Z79.899 Other long term (current) drug therapy; W01.0XXA Fall on same level from slipping, tripping and stumbling without subsequent striking against object, initial encounter
CPT/HCPCS: 12001; 99283; 90471; 90715; J2001

== ENCOUNTER 2023-09-08 13:16 | Inpatient (IN) | payer MEDICARE ==
--- NOTE | 2023-09-08 14:09 | ED ---
SOB HPI - General Chief Complaint: Shortness of Breath Stated Complaint: gabe Time Seen by Provider: 09/08/23 13:30 Source: patient Mode of arrival: ambulatory Limitations: no limitations - History of Present Illness Initial Comments: 83-year-old male who presents emergency department reporting shortness of breath. States that he saw his primary care on Friday and was diagnosed with pneumonia. He was placed on antibiotics. States he has been taking them as directed however has not felt any better. He denies any underlying lung conditions to include asthma or COPD. No history of heart failure. Patient denies any chest pain. He denies fevers chills or cough. No sick contacts. No other alleviating, precipitating or modifying factors - Related Data Home Medications Medication Instructions Recorded Confirmed Levothyroxine Sodium [Synthroid] 125 mcg PO DAILY 09/06/22 09/08/23 Bisoprolol [Zebeta] 5 mg PO DAILY 01/17/23 09/08/23 amLODIPine [Norvasc] 2.5 mg PO DAILY 01/17/23 09/08/23 Cholecalciferol (Vitamin D3) 75 mcg PO DAILY 09/08/23 09/08/23 [Vitamin D3 (3000 Iu)] cefUROXime axetiL [Ceftin] 500 mg PO BID 09/08/23 09/08/23 Previous Rx's Medication Instructions Recorded Atorvastatin [Lipitor] 40 mg PO HS #30 tab 09/11/22 Tamsulosin [Flomax] 0.4 mg PO PC-BRKFST #30 cap 12/12/22 Allergies Allergy/AdvReac Type Severity Reaction Status Date / Time No Known Allergies Allergy Verified 09/08/23 16:42 Review of Systems ROS Statement: Those systems with pertinent positive or pertinent negative responses have been documented in the HPI. ROS Other: All systems not noted in ROS Statement are negative. Past Medical History Past Medical History: GI Bleed, Hyperlipidemia, Hypertension, Prostate Disorder, Thyroid Disorder Additional Past Medical History / Comment(s): Has steward catheter for urinary retention. Recent hospitalization 12/11/22-12/12/22 for urinary retention/acute kidney injury. Enlarged prostate. Hx GI bleed, low Hgb in Aug 2022, Coumadin was discontinued at that time. Hx phlebitis. History of Any Multi-Drug Resistant Organisms: None Reported Past Surgical History: Appendectomy, Joint Replacement, Tonsillectomy Additional Past Surgical History / Comment(s): intestinal surgery. right hip replacement 2012, colonoscopy. Past Anesthesia/Blood Transfusion Reactions: No Reported Reaction, Motion Sickness Past Psychological History: No Psychological Hx Reported Smoking Status: Former smoker Past Alcohol Use History: None Reported Past Drug Use History: None Reported - Past Family History Father Family Medical History: No Reported History Mother Family Medical History: No Reported History Son(s) Family Medical History: Deep Vein Thrombosis (DVT) General Exam Limitations: no limitations General appearance: alert, in no apparent distress Head exam: Present: atraumatic, normocephalic, normal inspection Eye exam: Present: normal appearance, PERRL, EOMI. Absent: scleral icterus, conjunctival injection, periorbital swelling ENT exam: Present: normal exam, mucous membranes moist Neck exam: Present: normal inspection. Absent: tenderness, meningismus, lymphadenopathy Respiratory exam: Present: rales, accessory muscle use. Absent: respiratory distress, wheezes, rhonchi, stridor Cardiovascular Exam: Present: tachycardia, irregular rhythm, normal heart sounds. Absent: systolic murmur, diastolic murmur, rubs, gallop, clicks GI/Abdominal exam: Present: soft, normal bowel sounds. Absent: distended, te nderness, guarding, rebound, rigid Extremities exam: Present: normal inspection, full ROM, normal capillary refill. Absent: tenderness, pedal edema, joint swelling, calf tenderness Back exam: Present: normal inspection Neurological exam: Present: alert, oriented X3, CN II-XII intact Psychiatric exam: Present: normal affect, normal mood Skin exam: Present: warm, dry, intact, normal color. Absent: rash Course Vital Signs 09/08/23 09/08/23 09/08/23 13:25 15:20 16:00 Temperature 96.5 F L Pulse Rate 55 L 117 H 112 H Respiratory 22 20 20 Rate Blood Pressure 152/79 140/99 O2 Sat by Pulse 90 L Oximetry 09/08/23 09/08/23 09/09/23 18:00 22:00 03:05 Temperature 97.6 F Pulse Rate 105 H 98 102 H Respiratory 22 22 28 H Rate Blood Pressure 123/95 109/92 130/99 O2 Sat by Pulse 97 92 L 93 L Oximetry 09/09/23 09/09/23 09/09/23 06:00 07:23 08:00 Temperature 98.4 F Pulse Rate 85 114 H Respiratory 20 16 20 Rate Blood Pressure 140/88 127/100 120/103 O2 Sat by Pulse 96 95 Oximetry 09/09/23 09/09/23 09/09/23 08:36 09:00 10:00 Temperature Pulse Rate 113 H Respiratory 20 Rate Blood Pressure 98/56 120/91 O2 Sat by Pulse 95 93 L Oximetry 09/09/23 14:51 Temperature 98.2 F Pulse Rate 100 Respiratory 20 Rate Blood Pressure 122/94 O2 Sat by Pulse 96 Oximetry Medical Decision Making - Medical Decision Making Was pt. sent in by a medical professional or institution (, PA, BEHAVIORAL INTERVENTIONIST, urgent care, hospital, or half-way...) When possible be specific @ -No Did you speak to anyone other than the patient for history (EMS, parent, family, police, friend...)? What history was obtained from this source @ -spoke with son Did you review nursing and triage notes (agree or disagree)? Why? @ -I reviewed and agree with nursing and triage notes Were old charts reviewed (outside hosp., previous admission, EMS record, old EKG, old radiological studies, urgent care reports/EKG's, half-way records)? Report findings @ -No old charts were reviewed Differential Diagnosis (chest pain, altered mental status, abdominal pain women, abdominal pain men, vaginal bleeding, weakness, fever, dyspnea, syncope, headache, dizziness, GI bleed, back pain, seizure, CVA, palpatations, mental health, musculoskeletal)? @ -Differential Dyspnea: Coronary syndrome, arrhythmia, tamponade, asthma, COPD, pulmonary embolism, pneumonia, pneumothorax, pulmonary effusion, anaphylaxis, diabetic ketoacidosis, flailed chest, pulmonary contusion, diaphragmatic rupture, anemia, neuromuscular, this is not meant to be an all-inclusive list. EKG interpreted by me (3pts min.). @ -Yes and demonstrates A-fib with a rate of 128. QRS 118. QTc of 405. No acute ST segment elevations or depressions X-rays interpreted by me (1pt min.). @ -Yes and demonstrates signs of heart failure CT interpreted by me (1pt min.). @ -CT brain performed as patient reports head injury and needs to be heparinized. CT brain negative at this time. CT of the chest also performed to look for PE. No PE U/S interpreted by me (1pt. min.). @ -None done What testing was considered but not performed or refused? (CT, X-rays, U/S, labs)? Why? @ -None What meds were considered but not given or refused? Why? @ -None Did you discuss the management of the patient with other professionals (professionals i.e. Dr., PA, BEHAVIORAL INTERVENTIONIST, lab, RT, psych nurse, social service worker, project administrator, teacher, emergency communications officer, field nurse case manager)? Give summary @ -Spoke with Dr. Thibodeaux for admission Was smoking cessation discussed for >3mins.? @ -No Was critical care preformed (if so, how long)? @ -Yes, 35 minutes for new onset A-fib Were there social determinants of health that impacted care today? How? (Homele ssness, low income, unemployed, alcoholism, drug addiction, transportation, low edu. Level, literacy, decrease access to med. care, penitentiary, rehab)? @ -No Was there de-escalation of care discussed even if they declined (Discuss DNR or withdrawal of care, Hospice)? DNR status @ -No What co-morbidities impacted this encounter? (DM, HTN, Smoking, COPD, CAD, Cancer, CVA, ARF, Chemo, Hep., AIDS, mental health diagnosis, sleep apnea, morbid obesity)? @ -None Was patient admitted / discharged? Hospital course, mention meds given and route, prescriptions, significant lab abnormalities, going to OR and other pertinent info. @ -Upon arrival patient had been placed in the hallway. Twelve-lead EKG was performed which demonstrates new onset A-fib. Patient is then moved into trauma 3. Patient is placed on continuous pulse ox and cardiac monitoring. Twelve- lead EKG is performed. IV is established and laboratory studies are conducted. D-dimer is elevated and therefore patient does go for CT of his chest after chest x-ray is performed. Chest x-ray and CT demonstrate heart failure. This is likely secondary to new onset A-fib. Patient is rate controlled using Cardizem. I did discuss heparinizing the patient with Dr. Thibodeaux. He believes that there is benefit in heparinizing the patient given with his history of GI bleed. Patient will be started on drip without bolus. Patient did admit to falling and hitting his head a few months ago and therefore CT of the brain is performed. This is read as negative and therefore patient is initiated on heparin. Patient was agreeable to this treatment plan. He is currently awaiting a bed on the floor Undiagnosed new problem with uncertain prognosis? @ -Yes Drug Therapy requiring intensive monitoring for toxicity (Heparin, Nitro, Insulin, Cardizem)? @ -Heparin, Cardizem Were any procedures done? @ -No Diagnosis/symptom? @ -Acute dyspnea, new onset A-fib with RVR, acute heart failure Acute, or Chronic, or Acute on Chronic? @ -Acute Uncomplicated (without systemic symptoms) or Complicated (systemic symptoms)? @ -Complicated Side effects of treatment? @ -No Exacerbation, Progression, or Severe Exacerbation? @ -No Poses a threat to life or bodily function? How? (Chest pain, [place], [place], pneumonia, PE, COPD, DKA, ARF, appy, cholecystitis, CVA, Diverticulitis, Homicidal, Suicidal, threat to staff... and all critical care pts) @ -Yes as patient is in heart failure - Lab Data Result diagrams: 09/15/23 05:55 09/15/23 05:55 Lab Results 09/08/23 09/08/23 09/08/23 Range/Units 14:15 14:15 14:15 WBC 8.1 (3.8-10.6) k/uL RBC 3.77 L (4.30-5.90) m/uL Hgb 12.1 L (13.0-17.5) gm/dL Hct 35.9 L (39.0-53.0) % MCV 95.2 (80.0-100.0) fL MCH 32.1 (25.0-35.0) pg MCHC 33.7 (31.0-37.0) g/dL RDW 15.6 H (11.5-15.5) % Plt Count 85 L (150-450) k/uL MPV 8.2 Neutrophils % 84 % Lymphocytes % 7 % Monocytes % 7 % Eosinophils % 0 % Basophils % 0 % Neutrophils # 6.9 (1.3-7.7) k/uL Lymphocytes # 0.5 L (1.0-4.8) k/uL Monocytes # 0.6 (0-1.0) k/uL Eosinophils # 0.0 (0-0.7) k/uL Basophils # 0.0 (0-0.2) k/uL Hypochromasia Slight Hypochromasia (manual) Present PT 12.4 (10.0-12.5) sec INR 1.2 H (<1.2) APTT 24.7 (22.0-30.0) sec D-Dimer 17.07 H (<0.60) mg/L FEU Sodium 137 (137-145) mmol/L Potassium 4.9 (3.5-5.1) mmol/L Chloride 108 H (98-107) mmol/L Carbon Dioxide 16 L (22-30) mmol/L Anion Gap 13 mmol/L BUN 49 H (9-20) mg/dL Creatinine 1.40 H (0.66-1.25) mg/dL Est GFR (CKD-EPI)AfAm 54 (>60 ml/min/1.73 sqM) Est GFR (CKD-EPI)NonAf 46 (>60 ml/min/1.73 sqM) Glucose 100 H (74-99) mg/dL Calcium 9.3 (8.4-10.2) mg/dL Total Bilirubin 1.0 (0.2-1.3) mg/dL AST 70 H (17-59) U/L ALT 46 (4-49) U/L Alkaline Phosphatase 219 H (38-126) U/L Troponin I (0.000-0.034) ng/mL NT-Pro-B Natriuret Pep 17789 pg/mL Total Protein 7.7 (6.3-8.2) g/dL Albumin 4.2 (3.5-5.0) g/dL TSH 5.550 H (0.465-4.680) mIU/L Free T4 1.60 (0.78-2.19) ng/dL Influenza Type A (PCR) (Not Detectd) Influenza Type B (PCR) (Not Detectd) RSV (PCR) (Not Detectd) SARS-CoV-2 (PCR) (Not Detectd) 09/08/23 09/08/23 Range/Units 14:15 14:15 WBC (3.8-10.6) k/uL RBC (4.30-5.90) m/uL Hgb (13.0-17.5) gm/dL Hct (39.0-53.0) % MCV (80.0-100.0) fL MCH (25.0-35.0) pg MCHC (31.0-37.0) g/dL RDW (11.5-15.5) % Plt Count (150-450) k/uL MPV Neutrophils % % Lymphocytes % % Monocytes % % Eosinophils % % Basophils % % Neutrophils # (1.3-7.7) k/uL Lymphocytes # (1.0-4.8) k/uL Monocytes # (0-1.0) k/uL Eosinophils # (0-0.7) k/uL Basophils # (0-0.2) k/uL Hypochromasia Hypochromasia (manual) PT (10.0-12.5) sec INR (<1.2) APTT (22.0-30.0) sec D-Dimer (<0.60) mg/L FEU Sodium (137-145) mmol/L Potassium (3.5-5.1) mmol/L Chloride (98-107) mmol/L Carbon Dioxide (22-30) mmol/L Anion Gap mmol/L BUN (9-20) mg/dL Creatinine (0.66-1.25) mg/dL Est GFR (CKD-EPI)AfAm (>60 ml/min/1.73 sqM) Est GFR (CKD-EPI)NonAf (>60 ml/min/1.73 sqM) Glucose (74-99) mg/dL Calcium (8.4-10.2) mg/dL Total Bilirubin (0.2-1.3) mg/dL AST (17-59) U/L ALT (4-49) U/L Alkaline Phosphatase (38-126) U/L Troponin I 2.140 H* (0.000-0.034) ng/mL NT-Pro-B Natriuret Pep pg/mL Total Protein (6.3-8.2) g/dL Albumin (3.5-5.0) g/dL TSH (0.465-4.680) mIU/L Free T4 (0.78-2.19) ng/dL Influenza Type A (PCR) Not Detected (Not Detectd) Influenza Type B (PCR) Not Detected (Not Detectd) RSV (PCR) Not Detected (Not Detectd) SARS-CoV-2 (PCR) Not Detected (Not Detectd) Disposition Clinical Impression: Elevated troponin I level, Heart failure, Atrial fibrillation with RVR Disposition: ADMITTED IP TO THIS HOSP Condition: Serious Is patient prescribed a controlled substance at d/c from ED?: No Time of Disposition: 16:54 Decision to Admit Reason: Admit from EC Decision Date: 09/08/23 Decision Time: 16:54
--- NOTE | 2023-09-08 14:37 | XR ---
EXAMINATION TYPE: XR chest 2V DATE OF EXAM: 09/08/2023 COMPARISON: NONE HISTORY: Shortness of breath TECHNIQUE: Frontal and lateral views of the chest are obtained. FINDINGS: Scattered senescent parenchymal changes noted. Hyperinflation compatible with COPD. Cardiomegaly with pulmonary venous congestion scattered infiltrates as well as small effusions may re flect congestive failure. Infiltrates of other etiology are not excluded. Correlate clinically. Media stinal structures are stable and grossly unremarkable. No evidence for hilar prominence. Degenerative changes dorsal spine. IMPRESSION: 1. Cardiomegaly with pulmonary venous congestion scattered infiltrates as well as small effusions may reflect congestive failure. Infiltrates of other etiology are not excluded. Correlate clinically.
[2023-09-08 14:56] LABS: Basophils % (A) 0 %; Eosinophils % (A) 0 %; HCT 35.9 % (39.0-53.0); HGB 12.1 gm/dL (13.0-17.5); Hypochromasia Slight; Lymphocytes # (A) 0.5 k/uL (1.0-4.8); Lymphocytes % (A) 7 %; MCH 32.1 pg (25.0-35.0); MCHC 33.7 g/dL (31.0-37.0); MCV 95.2 fL (80.0-100.0); Mean Platelet Volume 8.2; Monocytes # (A) 0.6 k/uL (0-1.0); Monocytes % (A) 7 %; Neutrophils # (A) 6.9 k/uL (1.3-7.7); Neutrophils % (A) 84 %; RBC 3.77 m/uL (4.30-5.90); RDW 15.6 % (11.5-15.5); WBC 8.1 k/uL (3.8-10.6)
[2023-09-08 15:05] LABS: ALT 46 U/L (4-49); AST 70 U/L (17-59); African American GFR (CKD) 54 (>60 ml/min/1.73 sqM); Albumin 4.2 g/dL (3.5-5.0); Alkaline Phosphatase 219 U/L (38-126); Anion Gap 13 mmol/L; Blood Urea Nitrogen 49 mg/dL (9-20); Calcium 9.3 mg/dL (8.4-10.2); Carbon Dioxide 16 mmol/L (22-30); Chloride 108 mmol/L (98-107); Glucose 100 mg/dL (74-99); Non-African American GFR(CKD) 46 (>60 ml/min/1.73 sqM); Sodium 137 mmol/L (137-145); Total Protein 7.7 g/dL (6.3-8.2)
[2023-09-08 15:07] LABS: Potassium 4.9 mmol/L (3.5-5.1)
[2023-09-08 15:14] LABS: NT-Pro-B-Type Natriuretic Pept 11900 pg/mL
[2023-09-08 15:31] LABS: INR 1.2 (<1.2); Partial Thromboplastin Time 24.7 sec (22.0-30.0); Prothrombin Time 12.4 sec (10.0-12.5)
[2023-09-08 16:09] LABS: Platelet Count 85 k/uL (150-450)
[2023-09-08 16:10] LABS: Hypochromasia (M) Present
--- NOTE | 2023-09-08 16:56 | CT ---
EXAMINATION TYPE: CT chest angio for PE DATE OF EXAM: 09/08/2023 COMPARISON: HISTORY: SOB and elevated d-dimer CT DLP: 398 mGycm CONTRAST: CT chest with contrast and 3D reconstruction with MIP imaging is performed with IV Contrast, patient injected with 100ml mL of Isovue 370. Contrast-enhanced CT of the chest was performed through the course of the pulmonary arteries with chata g and mediastinal window settings submitted. 3D reconstruction with MIP imaging was also performed. PULMONARY ARTERIES: The pulmonary arteries and their major tributaries are patent. I do not see newton dence for sizable filling defect to suggest pulmonary embolic process. LUNGS: There are scattered infiltrates throughout both lung lim as well as [id number] pleur al effusions right greater than left. The findings are likely on the basis of congestive failure alth ough infiltrates of other etiology not excluded. MEDIASTINUM: Thoracic aorta is of normal caliber. The heart is moderate enlarged. No evidence for mediastinal mass. No mediastinal lymph nodes greater than 1cm. HILAR STRUCTURES: No evidence for mass. No hilar lymph nodes greater than 1 cm. UPPER ABDOMEN: No significant abnormality is seen. IMPRESSION: 1. No evidence for Pulmonary embolism at this time. 2. There are scattered infiltrates throughout both lung lim as well as [id number] pleural effusions right greater than left. The findings are likely on the basis of congestive failure althoug h infiltrates of other etiology not excluded.
[2023-09-08] MEDS ORDERED: NALOXONE 0.4 MG/ML 1 ML VIAL IV PRN (17:07)
[2023-09-08] MEDS ORDERED: HEPARIN SODIUM 1,000 UN/ML (10ML VL) IV PRN (17:11)
[2023-09-08] MEDS: FUROSEMIDE 10 MG/ML 10 ML VIAL IV STA (18:09)
[2023-09-08] MEDS: DILTIAZEM 125 MG in SODIUM CHLORIDE 0.9% 100 ML IV SCH (18:19)
--- NOTE | 2023-09-08 19:30 | CT ---
EXAMINATION TYPE: CT brain wo con CT DLP: 1134.4 mGycm, Automated exposure control for dose reduction was used. DATE OF EXAM: 09/08/2023 7:14 PM COMPARISON: CT head 09/07/2002. CLINICAL INDICATION:Male, 83 years old with history of head injury, need to heparinize, ams TECHNIQUE: Brain: Axial CT images of the brain were obtained with coronal and sagittal reformats created and rev iewed. Contrast used: None. Oral contrast used: None. FINDINGS: Extra-axial spaces: No abnormal extra-axial fluid collections. Ventricular system: Ventricles appear dilated in proportion to the degree of cerebral atrophy. Cerebral parenchyma: Again seen are areas of amorphous and linear increased attenuation in the cerebe llum, and multiple punctate foci in the bilateral basal ganglia, compatible with calcifications. No n ew area of increased attenuation is seen to suggest hemorrhage. The barnett-white matter interface appea rs maintained. Moderate generalized brain atrophy. Scattered hypoattenuating areas are seen within the cerebral white matter, nonspecific but most often seen with chronic microvascular ischemic change s; moderate in degree. Cerebellum: No acute abnormality. Mass effect: No evidence of mass effect or midline shift. Intracranial vasculature: Mild atherosclerotic calcifications of the larger arteries near the skull b ase. Soft tissues: No acute or concerning abnormality. Visualized orbits: Orbital contents appear grossly intact. Radiodensities along the globes likely s equela of previous ophthalmologic surgery. Calvarium/osseous structures: No evidence of calvarial fracture. Paranasal sinuses and mastoid air cells: Clear. MRI is more sensitive for detecting acute processes such as infarct, and may be considered if clinica lly warranted. IMPRESSION: 1. No hemorrhage or other acute intracranial CT abnormality. 2. Atrophy and chronic microvascular ischemic white matter changes.
[2023-09-08] MEDS: ASPIRIN 81 MG PO STA (20:15)
[2023-09-08] MEDS: HEPARIN SOD,PORK IN 0.45% NACL 25,000 UNIT in 0.45% NACL 1 250ML.BAG IV SCH (20:44)
[2023-09-09 02:50] LABS: Basophils % (A) 0 %; Eosinophils % (A) 0 %; HCT 33.4 % (39.0-53.0); HGB 11.2 gm/dL (13.0-17.5); Hypochromasia Slight; Lymphocytes # (A) 0.6 k/uL (1.0-4.8); Lymphocytes % (A) 6 %; MCH 31.8 pg (25.0-35.0); MCHC 33.4 g/dL (31.0-37.0); MCV 95.2 fL (80.0-100.0); Mean Platelet Volume 8.8; Monocytes # (A) 0.6 k/uL (0-1.0); Monocytes % (A) 7 %; Neutrophils # (A) 7.4 k/uL (1.3-7.7); Neutrophils % (A) 84 %; RBC 3.51 m/uL (4.30-5.90); RDW 15.6 % (11.5-15.5); WBC 8.9 k/uL (3.8-10.6)
[2023-09-09 02:55] LABS: Platelet Count 79 k/uL (150-450)
[2023-09-09 03:01] LABS: INR 1.2 (<1.2); Prothrombin Time 13.1 sec (10.0-12.5)
[2023-09-09 03:18] LABS: African American GFR (CKD) 48 (>60 ml/min/1.73 sqM); Carbon Dioxide 19 mmol/L (22-30); Chloride 109 mmol/L (98-107); Non-African American GFR(CKD) 41 (>60 ml/min/1.73 sqM)
[2023-09-09 03:24] LABS: Anion Gap 10 mmol/L; Blood Urea Nitrogen 48 mg/dL (9-20); Calcium 9.2 mg/dL (8.4-10.2); Glucose 98 mg/dL (74-99); Potassium 4.2 mmol/L (3.5-5.1); Sodium 138 mmol/L (137-145)
[2023-09-09] MEDS: LEVOTHYROXINE 125 MCG TAB PO SCH (08:47)
[2023-09-09] MEDS: CEFDINIR 300 MG CAP PO SCH (08:53)
[2023-09-09] MEDS: BISOPROLOL 5 MG TAB PO SCH (08:54)
[2023-09-09] MEDS: ASPIRIN 81 MG PO SCH (08:54)
[2023-09-09] MEDS: CHOLECALCIFEROL 25 MCG (1000 IU) TABLET PO SCH (08:54)
[2023-09-09] MEDS: amLODIPine 2.5 MG TAB PO SCH (08:54)
[2023-09-09] MEDS: TAMSULOSIN 0.4 MG CAP.ER.24H PO SCH (08:54)
--- NOTE | 2023-09-09 09:01 | P.HPIM ---
History of Present Illness H&P Date: 09/09/23 Chief Complaint: sob This is an 83-year-old male who presented to the emergency room with complaints of difficulty breathing and shortness of breath and some weakness. Patient also reports some increased lower leg edema the past several days. Patient was found to be in A-fib and chest x-ray showed pulmonary venous, congestion. He was started on a heparin drip and Cardizem drip. Cardiology is consulted. Rate is now better controlled. Waiting on echo results. Patient is seen and evaluated laying on stretcher in the ER this morning. He reports he is feeling well. Further medical history as noted below Review of Systems Constitutional: Denies chills, Denies fever Cardiovascular: Reports dyspnea on exertion, Reports leg edema, Reports shortness of breath, Denies chest pain Respiratory: Reports dyspnea, Denies cough Gastrointestinal: Denies abdominal pain, Denies nausea, Denies vomiting Musculoskeletal: Denies arm numbness/tingling, Denies leg numbness/tingling Neurological: Reports weakness, Denies headaches Past Medical History Past Medical History: GI Bleed, Hyperlipidemia, Hypertension, Prostate Disorder, Thyroid Disorder Additional Past Medical History / Comment(s): Has steward catheter for urinary retention. Recent hospitalization 12/11/22-12/12/22 for urinary retention/acute kidney injury. Enlarged prostate. Hx GI bleed, low Hgb in Aug 2022, Coumadin was discontinued at that time. Hx phlebitis. History of Any Multi-Drug Resistant Organisms: None Reported Past Surgical History: Appendectomy, Joint Replacement, Tonsillectomy Additional Past Surgical History / Comment(s): intestinal surgery. right hip replacement 2011, colonoscopy. Past Anesthesia/Blood Transfusion Reactions: No Reported Reaction, Motion Sickness Past Psychological History: No Psychological Hx Reported Smoking Status: Former smoker Past Alcohol Use History: None Reported Past Drug Use History: None Reported - Past Family History Father Family Medical History: No Reported History Mother Family Medical History: No Reported History Son(s) Family Medical History: Deep Vein Thrombosis (DVT) Medications and Allergies Home Medications Medication Instructions Recorded Confirmed Type Levothyroxine Sodium [Synthroid] 125 mcg PO DAILY 09/06/22 09/08/23 History Atorvastatin [Lipitor] 40 mg PO HS #30 tab 09/11/22 09/08/23 Rx Tamsulosin [Flomax] 0.4 mg PO PC-BRKFST #30 cap 12/12/22 09/08/23 Rx Bisoprolol [Zebeta] 5 mg PO DAILY 01/17/23 09/08/23 History amLODIPine [Norvasc] 2.5 mg PO DAILY 01/17/23 09/08/23 History Cholecalciferol (Vitamin D3) 75 mcg PO DAILY 09/08/23 09/08/23 History [Vitamin D3 (3000 Iu)] cefUROXime axetiL [Ceftin] 500 mg PO BID 09/08/23 09/08/23 History Allergies Allergy/AdvReac Type Severity Reaction Status Date / Time No Known Allergies Allergy Verified 09/08/23 16:42 Physical Exam Vitals: Vital Signs Temp Pulse Resp BP Pulse Ox 09/09/23 08:36 95 09/09/23 07:23 98.4 F 114 H 16 127/100 95 09/09/23 06:00 85 20 140/88 96 09/09/23 03:05 102 H 28 H 130/99 93 L 09/08/23 22:00 97.6 F 98 22 109/92 92 L 09/08/23 18:00 105 H 22 123/95 97 09/08/23 16:00 112 H 20 140/99 09/08/23 15:20 117 H 20 09/08/23 13:25 96.5 F L 55 L 22 152/79 90 L - Constitutional General appearance: cooperative, no acute distress - EENT Eyes: PERRLA - Neck Neck: no lymphadenopathy, normal ROM, no rigidity - Respiratory Respiratory: bilateral: rales - Cardiovascular Rhythm: irregularly irregular - Gastrointestinal General gastrointestinal: soft, no tenderness - Integumentary Integumentary: normal, normal turgor - Musculoskeletal Musculoskeletal: generalized weakness - Psychiatric Psychiatric: A&O x's 3, appropriate affect, intact judgment & insight Results CBC & Chem 7: 09/09/23 02:34 09/09/23 02:34 Labs: Abnormal Lab Results - Last 24 Hours (Table) 09/08/23 09/08/23 09/08/23 Range/Units 14:15 14:15 14:15 RBC 3.77 L (4.30-5.90) m/uL Hgb 12.1 L (13.0-17.5) gm/dL Hct 35.9 L (39.0-53.0) % RDW 15.6 H (11.5-15.5) % Plt Count 85 L (150-450) k/uL Lymphocytes # 0.5 L (1.0-4.8) k/uL PT (10.0-12.5) sec INR 1.2 H (<1.2) APTT (22.0-30.0) sec D-Dimer 17.07 H (<0.60) mg/L FEU Chloride 108 H (98-107) mmol/L Carbon Dioxide 16 L (22-30) mmol/L BUN 49 H (9-20) mg/dL Creatinine 1.40 H (0.66-1.25) mg/dL Glucose 100 H (74-99) mg/dL AST 70 H (17-59) U/L Alkaline Phosphatase 219 H (38-126) U/L Troponin I (0.000-0.034) ng/mL TSH 5.550 H (0.465-4.680) mIU/L 09/08/23 09/08/23 09/08/23 Range/Units 14:15 17:56 21:35 RBC (4.30-5.90) m/uL Hgb (13.0-17.5) gm/dL Hct (39.0-53.0) % RDW (11.5-15.5) % Plt Count (150-450) k/uL Lymphocytes # (1.0-4.8) k/uL PT (10.0-12.5) sec INR (<1.2) APTT (22.0-30.0) sec D-Dimer (<0.60) mg/L FEU Chloride (98-107) mmol/L Carbon Dioxide (22-30) mmol/L BUN (9-20) mg/dL Creatinine (0.66-1.25) mg/dL Glucose (74-99) mg/dL AST (17-59) U/L Alkaline Phosphatase (38-126) U/L Troponin I 2.140 H* 2.010 H* 2.030 H* (0.000-0.034) ng/mL TSH (0.465-4.680) mIU/L 01/29/24 01/30/24 01/30/24 Range/Units 21:35 02:34 02:34 RBC 3.51 L (4.30-5.90) m/uL Hgb 11.2 L (13.0-17.5) gm/dL Hct 33.4 L (39.0-53.0) % RDW 15.6 H (11.5-15.5) % Plt Count 79 L (150-450) k/uL Lymphocytes # 0.6 L (1.0-4.8) k/uL PT 13.1 H (10.0-12.5) sec INR 1.2 H (<1.2) APTT 32.6 H (22.0-30.0) sec D-Dimer (<0.60) mg/L FEU Chloride (98-107) mmol/L Carbon Dioxide (22-30) mmol/L BUN (9-20) mg/dL Creatinine (0.66-1.25) mg/dL Glucose (74-99) mg/dL AST (17-59) U/L Alkaline Phosphatase (38-126) U/L Troponin I (0.000-0.034) ng/mL TSH (0.465-4.680) mIU/L 09/09/23 09/09/23 Range/Units 02:34 02:34 RBC (4.30-5.90) m/uL Hgb (13.0-17.5) gm/dL Hct (39.0-53.0) % RDW (11.5-15.5) % Plt Count (150-450) k/uL Lymphocytes # (1.0-4.8) k/uL PT (10.0-12.5) sec INR (<1.2) APTT 47.4 H (22.0-30.0) sec D-Dimer (<0.60) mg/L FEU Chloride 109 H (98-107) mmol/L Carbon Dioxide 19 L (22-30) mmol/L BUN 48 H (9-20) mg/dL Creatinine 1.54 H (0.66-1.25) mg/dL Glucose (74-99) mg/dL AST (17-59) U/L Alkaline Phosphatase (38-126) U/L Troponin I (0.000-0.034) ng/mL TSH (0.465-4.680) mIU/L Assessment and Plan (1) Atrial fibrillation with RVR Current Visit: Yes Status: Acute Code(s): I48.91 - UNSPECIFIED ATRIAL FIBRILLATION SNOMED Code(s): 592753819242262 (2) Heart failure Current Visit: Yes Status: Acute Code(s): I50.9 - HEART FAILURE, UNSPECIFIED SNOMED Code(s): 98896813 (3) History of hypothyroidism Current Visit: No Status: Acute Code(s): Z86.39 - PERSONAL HISTORY OF ENDO, NUTRITIONAL AND METABOLIC DISEASE SNOMED Code(s): 573532197 (4) Hyperlipidemia Current Visit: No Status: Acute Code(s): E78.5 - HYPERLIPIDEMIA, UNSPECIFIED SNOMED Code(s): 70331193 (5) Hypertension Current Visit: No Status: Acute Code(s): I10 - ESSENTIAL (PRIMARY) HYPERTENSION SNOMED Code(s): 50594849 Plan: Continue home medications. Check CBC and CMP in the morning Appreciate cardiology's input Patient seen and evaluated by nurse practitioner, physician in agreement with plan
[2023-09-09] MEDS ORDERED: FUROSEMIDE 10 MG/ML 4 ML VIAL IV PRN (10:16)
--- NOTE | 2023-09-09 13:56 | P.CRDCN ---
History of Present Illness Consult date: 09/09/23 Reason for Consult (text): AF W RVR, NSTEMI, AECHF History of present illness: History of present illness: This is an 83-year-old male patient of Dr. Huang with past medical history of stable dyspnea on exertion, history of DVT previously on Coumadin hypertension, dyslipidemia, chronic anemia, thrombocytopenia, history of enlarged prostate status post TURP with hematuria and history of GI bleed. We have been asked to evaluate the patient for A-fib with RVR, acute exacerbation of CHF and non-ST elevated myocardial infarction. Patient is seen today in the emergency center waiting for bed on the cardiac stepdown unit. Patient states he has had shortness of breath for the past 3 weeks. He thought he had pneumonia was treated with antibiotics but this did not help and he seemed to be getting worse. He states he has felt faint but no loss consciousness. No palpitations. No chest pain. He states he is feeling better by time of this evaluation. He is status post IV Lasix 60 mg x 1. Patient has been started on Cardizem drip at 5 mg/h and heparin drip. Heart rate is currently running between 90s and 115. EKG atrial fibrillation Chest x-ray: CTA of the chest revealed no pulmonary embolism. Scattered infiltrates. Small to moderate pleural effusion right greater than left. Troponins 2.14, 2.01, 2.03. TSH 5.55 with normal free T4 of 1.6. D-dimer 17. BUN 48, creatinine 1.5. AST 70, ALT 46, alkaline phosphatase 219. proBNP 11,900. Home cardiac medications: Amlodipine 2.5 mg daily, atorvastatin 40 mg at bedtime, bisoprolol 5 mg daily, also on levothyroxine 125 mcg daily. Review Of Systems: At the time of my evaluation: Constitutional: No fever, no chills. No weakness, fatigue or lethargy. EENT: No headache. No dizziness. Lungs: No shortness of breath, cough, no sputum production. No wheezing. Cardiovascular: No chest pain, no lower extremity edema. No palpitations. No paroxysmal nocturnal dyspnea. No orthopnea. No lightheadedness or dizziness. No syncopal episodes. Abdominal: No abdominal pain. No nausea, vomiting. No diarrhea. No constipation. No bloody or tarry stools. Genitourinary: No dysuria.. No urinary retention. Musculoskeletal: No myalgias. No muscle weakness, no frequent falls. Integumentary: No wounds. No rash. No unusual bruising. Neurologic: No aphasia. No facial droop. No change in mentation. Physical examination: Gen: This is an 83-year-old male, no acute distress VS: reviewed blood pressure 127/100, heart rate 90. HEENT: Head is atraumatic, normocephalic. Pupils equal, round. Sclerae is anicteric. NECK: Supple. No JVD. LUNGS: Clear to auscultation. No wheezes or rhonchi. No intercostal retractions. HEART: Regular rate and rhythm. No murmur. ABDOMEN: Soft No tenderness. EXTREMITIES: No pedal edema. No calf tenderness. NEUROLOGICAL: Patient is awake, alert and oriented x3. Assessment: New onset A-fib with RVR, paroxysmal Acute exacerbation of CHF Non-ST elevated myocardial infarction History of DVT History of GI bleeding and hematuria Chronic anemia, stable Chronic thrombocytopenia Dyslipidemia Chronic kidney disease Plan: Continue patient on Cardizem drip and heparin drip Start patient on metoprolol 25 mg daily Start patient on IV Lasix 40 mg daily Start patient on aspirin 81 mg daily, atorvastatin 40 mg daily Obtain 2-D echocardiogram and Doppler study to assess cardiac structure and function Monitor TAMERA, daily weights, electrolytes and renal function Discussed with patient and daughter need for cardiac catheterization which will be performed once patient's heart failure and A-fib are stabilized. Further recommendations to follow based upon clinical course Thank you kindly for this consultation. Nurse practitioner note has been reviewed, I agree with documented findings and plan of care. Patient was seen and examined. Past Medical History Past Medical History: GI Bleed, Hyperlipidemia, Hypertension, Prostate Disorder, Thyroid Disorder Additional Past Medical History / Comment(s): Has steward catheter for urinary retention. Recent hospitalization 12/11/22-12/12/22 for urinary retention/acute kidney injury. Enlarged prostate. Hx GI bleed, low Hgb in Aug 2022, Coumadin was discontinued at that time. Hx phlebitis. History of Any Multi-Drug Resistant Organisms: None Reported Past Surgical History: Appendectomy, Joint Replacement, Tonsillectomy Additional Past Surgical History / Comment(s): intestinal surgery. right hip replacement 2011, colonoscopy. Past Anesthesia/Blood Transfusion Reactions: No Reported Reaction, Motion Sickness Past Psychological History: No Psychological Hx Reported Smoking Status: Former smoker Past Alcohol Use History: None Reported Past Drug Use History: None Reported - Past Family History Father Family Medical History: No Reported History Mother Family Medical History: No Reported History Son(s) Family Medical History: Deep Vein Thrombosis (DVT) Medications and Allergies Home Medications Medication Instructions Recorded Confirmed Type Levothyroxine Sodium [Synthroid] 125 mcg PO DAILY 09/06/22 09/08/23 History Atorvastatin [Lipitor] 40 mg PO HS #30 tab 09/11/22 09/08/23 Rx Tamsulosin [Flomax] 0.4 mg PO PC-BRKFST #30 cap 12/12/22 09/08/23 Rx Bisoprolol [Zebeta] 5 mg PO DAILY 01/17/23 09/08/23 History amLODIPine [Norvasc] 2.5 mg PO DAILY 01/17/23 09/08/23 History Cholecalciferol (Vitamin D3) 75 mcg PO DAILY 09/08/23 09/08/23 History [Vitamin D3 (3000 Iu)] cefUROXime axetiL [Ceftin] 500 mg PO BID 09/08/23 09/08/23 History Allergies Allergy/AdvReac Type Severity Reaction Status Date / Time No Known Allergies Allergy Verified 09/08/23 16:42 Physical Exam Vitals: Vital Signs Temp Pulse Resp BP Pulse Ox 09/09/23 07:23 98.4 F 114 H 16 127/100 95 09/09/23 06:00 85 20 140/88 96 09/09/23 03:05 102 H 28 H 130/99 93 L 09/08/23 22:00 97.6 F 98 22 109/92 92 L 09/08/23 18:00 105 H 22 123/95 97 09/08/23 16:00 112 H 20 140/99 09/08/23 15:20 117 H 20 09/08/23 13:25 96.5 F L 55 L 22 152/79 90 L Results 09/09/23 02:34 09/09/23 02:34 Cardiac Enzymes 09/08/23 09/08/23 09/08/23 Range/Units 14:15 14:15 17:56 AST 70 H (17-59) U/L Troponin I 2.140 H* 2.010 H* (0.000-0.034) ng/mL 09/08/23 Range/Units 21:35 AST (17-59) U/L Troponin I 2.030 H* (0.000-0.034) ng/mL Coagulation 09/08/23 09/08/23 09/09/23 Range/Units 14:15 21:35 02:34 PT 12.4 13.1 H (10.0-12.5) sec APTT 24.7 32.6 H (22.0-30.0) sec 09/09/23 Range/Units 02:34 PT (10.0-12.5) sec APTT 47.4 H (22.0-30.0) sec CBC 09/08/23 09/09/23 Range/Units 14:15 02:34 WBC 8.1 8.9 (3.8-10.6) k/uL RBC 3.77 L 3.51 L (4.30-5.90) m/uL Hgb 12.1 L 11.2 L (13.0-17.5) gm/dL Hct 35.9 L 33.4 L (39.0-53.0) % Plt Count 85 L 79 L (150-450) k/uL Comprehensive Metabolic Panel 09/08/23 09/09/23 Range/Units 14:15 02:34 Sodium 137 138 (137-145) mmol/L Potassium 4.9 4.2 (3.5-5.1) mmol/L Chloride 108 H 109 H (98-107) mmol/L Carbon Dioxide 16 L 19 L (22-30) mmol/L BUN 49 H 48 H (9-20) mg/dL Creatinine 1.40 H 1.54 H (0.66-1.25) mg/dL Glucose 100 H 98 (74-99) mg/dL Calcium 9.3 9.2 (8.4-10.2) mg/dL AST 70 H (17-59) U/L ALT 46 (4-49) U/L Alkaline Phosphatase 219 H (38-126) U/L Total Protein 7.7 (6.3-8.2) g/dL Albumin 4.2 (3.5-5.0) g/dL Current Medications Generic Name Dose Route Start Last Admin Trade Name Freq PRN Reason Stop Dose Admin Heparin Sodium (Porcine) 0 unit 09/08/23 17:11 Heparin Sodium 1,000 Un/Ml (10ml Vl) IV PER PROTOCOL PRN Low PTT Protocol Heparin Sodium/Sodium Chloride 250 mls @ 8.546 mls/hr 09/08/23 17:15 09/08/23 20:44 25,000 unit/ Sodium Chloride IV 12 units/kg/hr .Q24H [facility] 8.546 mls/hr Administration Protocol 12 UNITS/KG/HR Diltiazem HCl 125 mg/ Sodium 125 mls @ 5 mls/hr 09/08/23 17:30 09/08/23 18:19 Chloride IV 5 mg/hr .Q24H [facility] 5 mls/hr Administration 5 MG/HR Naloxone HCl 0.2 mg 09/08/23 17:07 Naloxone 0.4 Mg/Ml 1 Ml Vial IV Q2M PRN Opioid Reversal 09/09/23 02:34 09/09/23 02:34
[2023-09-09] MEDS: FUROSEMIDE 10 MG/ML 4 ML VIAL IV SCH (16:00)
[2023-09-09] MEDS: ATORVASTATIN 40 MG TAB PO SCH (21:24)
--- NOTE | 2023-09-10 08:24 | P.PN ---
Subjective Progress Note Date: 09/10/23 Principal diagnosis: New onset atrial fibrillation with rapid ventricular response. NSTEMI. This is an 83-year-old white male who has not since admitted for worsening shortness of breath and slight pedal edema. He was found to have new onset atrial fibrillation with rapid ventricular response. He is now been placed on Cardizem drip with heparin due to elevated troponin. NSTEMI was diagnosed appreciate cardiology input. The patient has now had 1 day of full diuresis with Cardizem drip. The patient has now been stabilizing and feels that his respiratory status is significantly improved. No voiding difficulties. No hematemesis hematochezia. Objective - Vital Signs Vital signs: Vital Signs Temp 97 F L 09/10/23 04:00 Pulse 98 09/10/23 04:00 Resp 20 09/10/23 04:00 BP 120/71 09/10/23 04:00 Pulse Ox 96 09/10/23 04:00 FiO2 Intake & Output 09/09/23 09/10/23 09/10/23 18:59 06:59 18:59 Intake Total 958.213 108.962 Output Total 1100 1500 Balance -141.787 -1391.038 Weight 71.214 kg 80.5 kg Intake: Intake, IV Titration 298.213 108.962 Amount Diltiazem 125 mg In 117.75 Sodium Chloride 0.9% 100 ml @ 5 MG/HR 5 mls/hr IV .Q24H [facility] Rx#:[id number] Heparin Sod,Pork in 0.45% 180.463 108.962 NaCl 25,000 unit In 0.45 % NaCl 1 250ml.bag @ 12 UNITS/KG/HR 8.546 mls/hr IV .Q24H [facility] Rx#: [id number] Oral 660 Output: Urine 1100 1500 - Constitutional General appearance: Present: average body habitus, cooperative. Absent: disheveled - Neck Neck: Absent: lymphadenopathy - Respiratory Respiratory: bilateral: diminished - Cardiovascular Rhythm: irregularly irregular Heart sounds: normal: S1, S2 Abnormal Heart Sounds: Absent: S3 Gallop - Gastrointestinal General gastrointestinal: Present: soft. Absent: tenderness - Integumentary Integumentary: Absent: cellulitis - Labs CBC & Chem 7: 09/09/23 02:34 09/09/23 02:34 Assessment and Plan (1) Atrial fibrillation with RVR Current Visit: Yes Status: Acute Code(s): I48.91 - UNSPECIFIED ATRIAL FIBRILLATION SNOMED Code(s): 851531973859416 (2) Elevated troponin I level Current Visit: Yes Status: Acute Code(s): R77.8 - OTHER SPECIFIED ABNOR MALITIES OF PLASMA PROTEINS SNOMED Code(s): 658767571 (3) Heart failure Current Visit: Yes Status: Acute Code(s): I50.9 - HEART FAILURE, UNSPECIFIED SNOMED Code(s): 25125605 (4) History of hypothyroidism Current Visit: No Status: Acute Code(s): Z86.39 - PERSONAL HISTORY OF ENDO, NUTRITIONAL AND METABOLIC DISEASE SNOMED Code(s): 596065418 (5) Hyperlipidemia Current Visit: No Status: Acute Code(s): E78.5 - HYPERLIPIDEMIA, UNSPECIFIED SNOMED Code(s): 39878267 (6) Hypertension Current Visit: No Status: Acute Code(s): I10 - ESSENTIAL (PRIMARY) HYPERTENSION SNOMED Code(s): 57540600 Plan: Continue diuresis with rate control. Significant improvement. Check CBC and CMP in a.m. Await echocardiogram result. Continue to follow. Anticipate discharge in the next 24 to 48 hours once stable. Time with Patient: Greater than 30
[2023-09-10] MEDS: METOPROLOL SUCCINATE (ER) 25 MG TAB.ER.24H PO SCH (08:52)
[2023-09-10 09:28] LABS: HCT 32.7 % (39.0-53.0); HGB 10.9 gm/dL (13.0-17.5); Hypochromasia Slight; MCH 31.3 pg (25.0-35.0); MCHC 33.3 g/dL (31.0-37.0); MCV 94.2 fL (80.0-100.0); Mean Platelet Volume 8.1; RBC 3.47 m/uL (4.30-5.90); RDW 15.5 % (11.5-15.5); WBC 8.3 k/uL (3.8-10.6)
[2023-09-10 09:33] LABS: Platelet Count 89 k/uL (150-450)
[2023-09-10 10:09] LABS: ALT 40 U/L (4-49); AST 66 U/L (17-59); African American GFR (CKD) 53 (>60 ml/min/1.73 sqM); Albumin 3.5 g/dL (3.5-5.0); Alkaline Phosphatase 193 U/L (38-126); Anion Gap 8 mmol/L; Blood Urea Nitrogen 46 mg/dL (9-20); Calcium 9.2 mg/dL (8.4-10.2); Carbon Dioxide 25 mmol/L (22-30); Chloride 105 mmol/L (98-107); Glucose 93 mg/dL (74-99); Non-African American GFR(CKD) 46 (>60 ml/min/1.73 sqM); Potassium 3.9 mmol/L (3.5-5.1); Sodium 138 mmol/L (137-145); Total Bilirubin 1.2 mg/dL (0.2-1.3); Total Protein 6.6 g/dL (6.3-8.2)
--- NOTE | 2023-09-10 10:39 | P.PN ---
Subjective Progress Note Date: 09/10/23 Reason for Consult (text): AF W RVR, NSTEMI, AECHF History of present illness: History of present illness: This is an 83-year-old male patient of Dr. Huang with past medical history of stable dyspnea on exertion, history of DVT previously on Coumadin hypertension, dyslipidemia, chronic anemia, thrombocytopenia, history of enlarged prostate status post TURP with hematuria and history of GI bleed. We have been asked to evaluate the patient for A-fib with RVR, acute exacerbation of CHF and non-ST elevated myocardial infarction. Patient is seen today in the emergency center waiting for bed on the cardiac stepdown unit. Patient states he has had shortness of breath for the past 3 weeks. He thought he had pneumonia was treated with antibiotics but this did not help and he seemed to be getting worse. He states he has felt faint but no loss consciousness. No palpitations. No chest pain. He states he is feeling better by time of this evaluation. He is status post IV Lasix 60 mg x 1. Patient has been started on Cardizem drip at 5 mg/h and heparin drip. Heart rate is currently running between 90s and 115. EKG atrial fibrillation Chest x-ray: CTA of the chest revealed no pulmonary embolism. Scattered infiltrates. Small to moderate pleural effusion right greater than left. Troponins 2.14, 2.01, 2.03. TSH 5.55 with normal free T4 of 1.6. D-dimer 17. BUN 48, creatinine 1.5. AST 70, ALT 46, alkaline phosphatase 219. proBNP 11 ,900. Home cardiac medications: Amlodipine 2.5 mg daily, atorvastatin 40 mg at bedtime, bisoprolol 5 mg daily, also on levothyroxine 125 mcg daily. 09/10 Patient is seen in follow-up today on cardiac stepdown unit. Patient has new onset of confusion. He has been n.p.o. with anticipated possible cardiac catheterization which we will hold until mental status has been evaluated by attending. Patient has been maintained on IV Lasix 40 mg daily. He is also on a heparin drip. Cardizem drip was discontinued yesterday. Patient is in atrial fibrillation with controlled rate. Blood pressure 118/77, heart rate 93, pulse ox 90% on [address] of the brain was performed last evening which revealed no hemorrhage or other acute intracranial abnormality. Atrophy and chronic ischemic white matter changes. Echocardiogram has been obtained and report is pending Physical examination: Gen: This is an 83-year-old male, no acute distress VS: reviewed HEENT: Head is atraumatic, normocephalic. Pupils equal, round. Sclerae is anicteric. NECK: Supple. No JVD. LUNGS: Clear to auscultation. No wheezes or rhonchi. No intercostal retractions. HEART: Regular rate and rhythm. No murmur. ABDOMEN: Soft No tenderness. EXTREMITIES: No pedal edema. No calf tenderness. NEUROLOGICAL: Patient is awake, alert and confused. Assessment: New onset A-fib with RVR, paroxysmal, currently in A-fib with rate control Acute exacerbation of CHF Non-ST elevated myocardial infarction History of DVT History of GI bleeding and hematuria Chronic anemia, stable Chronic thrombocytopenia Dyslipidemia Chronic kidney disease Plan: Continue patient on heparin drip Continue patient on metoprolol 25 mg daily Transition IV Lasix to oral 40 mg daily Continue patient on aspirin 81 mg daily, atorvastatin 40 mg daily Obtain 2-D echocardiogram and Doppler report Monitor TAMERA, daily weights, electrolytes and renal function Plan to hold off on cardiac catheterization until mental status changes have been improved. At this time, heart failure symptoms are stable and atrial fibrillation is a controlled rate. Further recommendations to follow based upon clinical course Nurse practitioner note has been reviewed, I agree with documented findings and plan of care. Patient was seen and examined. Objective - Vital Signs Vital signs: Vital Signs Temp 97.7 F 09/10/23 08:50 Pulse 93 09/10/23 08:50 Resp 20 09/10/23 08:50 BP 118/77 09/10/23 08:50 Pulse Ox 98 09/10/23 08:50 FiO2 Intake & Output 09/09/23 09/10/23 09/10/23 18:59 06:59 18:59 Intake Total 958.213 108.962 Output Total 1100 1500 Balance -141.787 -1391.038 Weight 71.214 kg 80.5 kg Intake: Intake, IV Titration 298.213 108.962 Amount Diltiazem 125 mg In 117.75 Sodium Chloride 0.9% 100 ml @ 5 MG/HR 5 mls/hr IV .Q24H [facility] Rx#:[id number] Heparin Sod,Pork in 0.45% 180.463 108.962 NaCl 25,000 unit In 0.45 % NaCl 1 250ml.bag @ 12 UNITS/KG/HR 8.546 mls/hr IV .Q24H [facility] Rx#: [id number] Oral 660 Output: Urine 1100 1500 Other: Voiding Method External Catheter - Labs CBC & Chem 7: 09/10/23 08:03 09/10/23 08:03 Labs: Abnormal Lab Results - Last 24 Hours (Table) 09/10/23 09/10/23 Range/Units 08:03 08:03 RBC 3.47 L (4.30-5.90) m/uL Hgb 10.9 L (13.0-17.5) gm/dL Hct 32.7 L (39.0-53.0) % Plt Count 89 L (150-450) k/uL APTT 60.5 H (22.0-30.0) sec
--- NOTE | 2023-09-10 10:52 | CA ---
Transthoracic Echo Report Name: Vitaliy Avelar Age: 83 Gender: M : 1940 Exam Date: 09/09/2023 11:28 Exam Location: [facility] Ht (in): 72 Wt (lb): 157 Ordering Physician: Jesenia Gomez DO Attending/Referring Phys: [id number], Patricia Independent Insurance Adjuster Branden Fan RD Procedure CPT: Indications: Heart failure Cardiac Hx: Technical Quality: Fair Contrast 1: Total Dose (mL): Contrast 2: Total Dose (mL): MEASUREMENTS (Male / Female) Normal Values 2D ECHO LV Diastolic Diameter PLAX 4.6 cm 4.2 - 5.9 / 3.9 - 5.3 cm LV Systolic Diameter PLAX 3.7 cm IVS Diastolic Thickness 1.3 cm 0.6 - 1.0 / 0.6 - 0.9 cm LVPW Diastolic Thickness 1.1 cm 0.6 - 1.0 / 0.6 - 0.9 cm LV Relative Wall Thickness 0.5 RV Internal Dim ED PLAX 3.4 cm LVOT Diameter 2.1 cm Aortic Root Diameter 3.0 cm LA Systolic Diameter LX 3.7 cm 3.0 - 4.0 / 2.7 - 3.8 cm LV Diastolic Volume MOD BP 54.0 cm??? 67 - 155 / 56 - 104 cm??? LV Systolic Volume MOD BP 29.7 cm??? - 58 / 19 - 49 cm??? LV Ejection Fraction MOD BP 44.9 % >= 55 % LV Cardiac Index MOD BP 1250.7 cm???/min???m??? LV Diastolic Volume MOD 4C 48.2 cm??? LV Systolic Volume MOD 4C 27.0 cm??? LV Ejection Fraction MOD 4C 44.0 % LV Cardiac Index MOD 4C 1094.1 cm???/min???m??? LV Diastolic Length 4C 6.6 cm LV Systolic Length 4C 6.1 cm LV Diastolic Volume MOD 2C 59.1 cm??? LV Systolic Volume MOD 2C 31.7 cm??? LV Ejection Fraction MOD 2C 46.3 % LV Cardiac Index MOD 2C 1412.6 cm???/min???m??? LV Diastolic Length 2C 6.7 cm LV Systolic Length 2C 6.3 cm LA Volume 89.2 cm??? 18 - 58 / 22 - 52 cm??? LA Volume Index 47.0 cm???/m??? 16 - 28 cm???/m??? DOPPLER AV Peak Velocity 140.6 cm/s AV Peak Gradient 7.9 mmHg LVOT Peak Velocity 66.0 cm/s LVOT Peak Gradient 1.7 mmHg LVOT Velocity Time Integral 12.6 cm LVOT Stroke Volume 43.8 cm??? LVOT Stroke Volume Index 22.8 ml/m??? LVOT Cardiac Index 2263.9 cm???/min???m??? AV Area Cont Eq pk 1.6 cm??? MV Peak Velocity 125.3 cm/s MV Peak Gradient 6.3 mmHg MV Mean Velocity 66.9 cm/s MV Mean Gradient 2.2 mmHg MV Velocity Time Integral 28.9 cm MR Peak Velocity 430.0 cm/s MR Peak Gradient 74.0 mmHg Mitral E Point Velocity 108.5 cm/s Mitral A Point Velocity 33.5 cm/s Mitral E to A Ratio 3.2 MV Deceleration Time 182.1 ms TR Peak Velocity 313.8 cm/s TR Peak Gradient 39.4 mmHg Right Ventricular Systolic Press 44.4 mmHg FINDINGS Left Ventricle Normal LV size and wall thickness. Left ventricular ejection fraction is estimated at 35-40 %. Right Ventricle Normal right ventricular size. RVSP= 44mmHg. Right Atrium Mild right atrial dilatation. Left Atrium Moderate left atrial dilatation. LA volume index= 46ml/m2 Mitral Valve Mild thickening of the anterior mitral valve leaflet. Mild MR. Aortic Valve Mild to moderate AV calcification. No aortic stenosis. No aortic regurgitation. Tricuspid Valve Structurally normal tricuspid valve. Modrate TR. Pulmonic Valve Structurally normal pulmonic valve. No pulmonic regurgitation. Pericardium Grossly normal. Aorta Normal size aortic root. CONCLUSIONS LVEF estimated at 35-40%. Severely reduced LV systolic function Diastolic dysfunction could not be assessed as patient is in atrial fibrillation Moderate biatrial dilatation Moderate MR, thickened anterior mitral leaflet Moderate aortic valve calcification with no stenosis RVSP estimated at 45 mmHg No pericardial effusion Dilated IVC less than 50% is predicted to collapsed, suggestive of elevated RA pressure Previewed by: Dr Orion Hernandez (Electronically Signed) Final Date: 10 September 2023 10:51
[2023-09-11] MEDS: FUROSEMIDE 40 MG TAB PO SCH (08:08)
--- NOTE | 2023-09-11 08:34 | P.PN ---
Subjective Progress Note Date: 09/11/23 Principal diagnosis: A-fib This is an 83-year-old male who originally presented to the emergency room with complaints of difficulty breathing, shortness of breath and weakness. Patient also reported increased lower leg edema over the last several days. Patient was found to be in A-fib with RVR and cardiology was consulted. He was on a Cardizem drip, rate is now better controlled. Patient also diagnosed with NSTEMI while inpatient, and remains on heparin drip. Echo was completed and showed a estimated ejection fraction of 35 to 40%. Patient seen and examined t his morning laying in bed resting comfortably. Nursing staff reports patient has been more confused. Objective - Vital Signs Vital signs: Vital Signs Temp 97.7 F 09/11/23 07:10 Pulse 80 09/11/23 07:10 Resp 20 09/11/23 07:10 BP 108/60 09/11/23 07:10 Pulse Ox 94 L 09/11/23 07:10 FiO2 Intake & Output 09/10/23 09/11/23 09/11/23 18:59 06:59 18:59 Intake Total 118 681.038 Output Total 1001 410 Balance -883 271.038 Weight 81 kg Intake: Intake, IV Titration 141.038 Amount Heparin Sod,Pork in 0.45% 141.038 NaCl 25,000 unit In 0.45 % NaCl 1 250ml.bag @ 12 UNITS/KG/HR 8.546 mls/hr IV .Q24H [facility] Rx#: [id number] Oral 118 540 Output: Urine 1000 410 Urine/Stool Mix 1 Other: Voiding Method External Catheter External Catheter External Catheter # Voids 1 # Bowel Movements 1 - Constitutional General appearance: Present: cooperative, no acute distress - EENT Eyes: Present: PERRLA - Neck Neck: Present: normal ROM. Absent: lymphadenopathy, rigidity - Respiratory Respiratory: bilateral: diminished - Cardiovascular Rhythm: irregularly irregular - Gastrointestinal General gastrointestinal: Present: soft. Absent: tenderness - Integumentary Integumentary: Present: normal, normal turgor - Psychiatric Psychiatric Comment(s): alert to person and place - Labs CBC & Chem 7: 09/10/23 08:03 09/10/23 08:03 Labs: Abnormal Lab Results - Last 24 Hours (Table) 09/10/23 09/10/23 09/10/23 Range/Units 08:03 08:03 08:03 RBC 3.47 L (4.30-5.90) m/uL Hgb 10.9 L (13.0-17.5) gm/dL Hct 32.7 L (39.0-53.0) % Plt Count 89 L (150-450) k/uL APTT 60.5 H (22.0-30.0) sec BUN 46 H (9-20) mg/dL Creatinine 1.41 H (0.66-1.25) mg/dL AST 66 H (17-59) U/L Alkaline Phosphatase 193 H (38-126) U/L Assessment and Plan (1) Atrial fibrillation with RVR Current Visit: Yes Status: Acute Code(s): I48.91 - UNSPECIFIED ATRIAL FIB RILLATION SNOMED Code(s): 096129443538860 (2) Heart failure Current Visit: Yes Status: Acute Code(s): I50.9 - HEART FAILURE, UNSPECIFIED SNOMED Code(s): 28342535 (3) History of hypothyroidism Current Visit: No Status: Acute Code(s): Z86.39 - PERSONAL HISTORY OF ENDO, NUTRITIONAL AND METABOLIC DISEASE SNOMED Code(s): 510205659 (4) Hyperlipidemia Current Visit: No Status: Acute Code(s): E78.5 - HYPERLIPIDEMIA, UNSPECIFIED SNOMED Code(s): 95175489 (5) Hypertension Current Visit: No Status: Acute Code(s): I10 - ESSENTIAL (PRIMARY) HYPERTENSION SNOMED Code(s): 32084730 Plan: Consult neurology due to new onset confusion Check CBC and CMP in the morning Encourage ambulation. Patient seen and evaluated by nurse practitioner, physician in agreement with plan
[2023-09-11 10:43] LABS: HCT 31.4 % (39.0-53.0); HGB 10.4 gm/dL (13.0-17.5); Hypochromasia Slight; MCH 30.8 pg (25.0-35.0); MCV 93.2 fL (80.0-100.0); Mean Platelet Volume 8.5; RBC 3.37 m/uL (4.30-5.90); RDW 15.8 % (11.5-15.5); WBC 10.6 k/uL (3.8-10.6)
[2023-09-11 10:50] LABS: Platelet Count 76 k/uL (150-450)
[2023-09-11 11:18] LABS: ALT 35 U/L (4-49); AST 58 U/L (17-59); African American GFR (CKD) 59 (>60 ml/min/1.73 sqM); Albumin 2.9 g/dL (3.5-5.0); Alkaline Phosphatase 177 U/L (38-126); Anion Gap 7 mmol/L; Blood Urea Nitrogen 42 mg/dL (9-20); Calcium 8.5 mg/dL (8.4-10.2); Carbon Dioxide 25 mmol/L (22-30); Chloride 102 mmol/L (98-107); Glucose 92 mg/dL (74-99); Non-African American GFR(CKD) 51 (>60 ml/min/1.73 sqM); Potassium 3.8 mmol/L (3.5-5.1); Sodium 134 mmol/L (137-145); Total Bilirubin 1.1 mg/dL (0.2-1.3); Total Protein 5.8 g/dL (6.3-8.2)
--- NOTE | 2023-09-11 15:45 | P.CNNES ---
History of Present Illness Consult date: 09/11/23 Requesting physician: Tabitha Barcenas Reason for Consult: mental status change History of Present Illness: This is an 83-year-old gentleman who presented emergency department because of shortness of breath. Patient is accompanied with his son Esau was at bedside. History is obtained from the son as well as medical record. It seems during his hospital visit he has a new onset A. fib with RVR with acute exacerbation of congestive heart failure with elevated troponin was felt non-STEMI. During his hospital visit is seems the patient was confused and the according to the son today he's drastically better compared to couple days ago. As confused about patient states she is doing better denies of any focal weakness, numbness and he is feeling better other than the shortness of breath. As a result of his atrial for ablation the patient was started on heparin drip. Some other workup during his hospital visit consisted of: Pulse ox was in the low 90s. His heart rate has been fluctuating and has been as high as 110s. His troponin are in the twos. His creatinine on presentation was 1.40 got as high as 1.54 and currently is 1.29 TSH is 5.50 and free T4 is 1.6 CT of the head is reported as no hemorrhage or other acute intracranial CT abnormality. Atrophy and chronic microvascular ischemic white matter changes. I personally reviewed the CT head and I agree there is no acute or subacute ischemia. 2D echo was reported as left ventricular ejection fraction of 35-40%. Severely reduced left ventricle systolic function. Diastolic dysfunction could not be assessed as the patient is in atrial fibrillation. Moderate biatrial dilation. Moderate mitral regurgitation. Moderate aortic valve calcification with no stenosis. Review of Systems The positive and negative as per HPI. Past Medical History Past Medical History: Atrial Fibrillation, Heart Failure, GI Bleed, Hyperlipidemia, Hypertension, Prostate Disorder, Thyroid Disorder Additional Past Medical History / Comment(s): Recent hospitalization 12/11/22- 12/12/22 for urinary retention/acute kidney injury. Enlarged prostate. Hx GI bleed, low Hgb in Aug 2022, Coumadin was discontinued at that time. Hx phlebitis , CHF exacerbation/Afib RVR in August of 2023. History of Any Multi-Drug Resistant Organisms: None Reported Past Surgical History: Appendectomy, Joint Replacement, Prostate Surgery, Tonsillectomy Additional Past Surgical History / Comment(s): intestinal surgery. right hip replacement 2011, colonoscopy, TURP. Past Anesthesia/Blood Transfusion Reactions: No Reported Reaction, Motion Sickness Smoking Status: Former smoker - Past Family History Father Family Medical History: No Reported History Mother Family Medical History: No Reported History Son(s) Family Medical History: Deep Vein Thrombosis (DVT) Medications and Allergies Home Medications Medication Instructions Recorded Confirmed Type Levothyroxine Sodium [Synthroid] 125 mcg PO DAILY 09/06/22 09/08/23 History Atorvastatin [Lipitor] 40 mg PO HS #30 tab 09/11/22 09/08/23 Rx Tamsulosin [Flomax] 0.4 mg PO PC-BRKFST #30 cap 12/12/22 09/08/23 Rx Bisoprolol [Zebeta] 5 mg PO DAILY 01/17/23 09/08/23 History amLODIPine [Norvasc] 2.5 mg PO DAILY 01/17/23 09/08/23 History Cholecalciferol (Vitamin D3) 75 mcg PO DAILY 09/08/23 09/08/23 History [Vitamin D3 (3000 Iu)] cefUROXime axetiL [Ceftin] 500 mg PO BID 09/08/23 09/08/23 History Allergies Allergy/AdvReac Type Severity Reaction Status Date / Time No Known Allergies Allergy Verified 09/08/23 16:42 Physical Examination - Vital Signs Vital Signs: Vital Signs Temp Pulse Resp BP Pulse Ox Pulse Ox Pulse Ox 09/11/23 11:13 96.3 F L 68 20 132/54 97 09/11/23 09:45 95 92 L 09/11/23 07:10 97.7 F 80 20 108/60 94 L 09/11/23 04:00 98.0 F 110 H 21 114/79 99 09/11/23 02:00 98 20 09/11/23 00:00 98.2 F 98 20 121/64 94 L 09/10/23 20:00 22 09/10/23 19:56 97.9 F 75 20 125/71 09/10/23 17:03 97.6 F 60 18 113/72 96 Intake and Output 09/11/23 09/11/23 09/11/23 06:59 14:59 22:59 Intake Total 141.038 Output Total 410 Balance -268.962 Intake: Intake, IV Titration 141.038 Amount Heparin Sod,Pork in 0.45% 141.038 NaCl 25,000 unit In 0.45 % NaCl 1 250ml.bag @ 12 UNITS/KG/HR 8.546 mls/hr IV .Q24H [facility] Rx#: [id number] Output: Urine 410 Other: Voiding Method External Catheter External Catheter # Voids 1 # Bowel Movements 1 0 Weight 81 kg GENERAL: The patient is sitting in a recliner chair and is not in acute distress. LUNG: Wheezing and that is without ausculation. NEUROLOGICAL: Higher mental function: The patient is awake, alert, oriented to self, place and time. I had to ask him 2-3 times about time and he kept on stating his date of until he stated current time correctly. Patient is following commands. No aphasia and no neglect. Cranial nerves: The pupils are round, equal and reactive to light and accommodation. Visual lim are full to confrontation throughout. Extraocular movement is intact no nystagmus is noted. Facial sensation is normal to touch throughout. The facial strength is normal throughout. Hearing is moderately to severely decrease bilaterally to hand rub. Tongue is midline and moved [id number] without any difficulty. No dysarthria is noted. Shoulder shrug is normal bilaterally. Motor: The strength is 5 over 5 throughout. Normal tone and bulk. Cerebellum: Normal finger to nose bilaterally. Sensation: Sensation is normal to touch throughout. Reflexes (right/left): 2+ throughout. Plantars are downgoing bilaterally. Results - Laboratory Findings CBC and BMP: 09/11/23 09:21 09/11/23 09:21 Abnormal Lab Findings: Abnormal Labs 09/08/23 09/08/23 09/08/23 14:15 14:15 14:15 RBC 3.77 L Hgb 12.1 L Hct 35.9 L RDW 15.6 H Plt Count 85 L Lymphocytes # 0.5 L PT INR 1.2 H APTT D-Dimer 17.07 H Sodium Chloride 108 H Carbon Dioxide 16 L BUN 49 H Creatinine 1.40 H Glucose 100 H AST 70 H Alkaline Phosphatase 219 H Troponin I Total Protein Albumin TSH 5.550 H 09/08/23 09/08/23 09/08/23 14:15 17:56 21:35 RBC Hgb Hct RDW Plt Count Lymphocytes # PT INR APTT D-Dimer Sodium Chloride Carbon Dioxide BUN Creatinine Glucose AST Alkaline Phosphatase Troponin I 2.140 H* 2.010 H* 2.030 H* Total Protein Albumin [facility] 09/08/23 09/09/23 09/09/23 21:35 02:34 02:34 RBC 3.51 L Hgb 11.2 L Hct 33.4 L RDW 15.6 H Plt Count 79 L Lymphocytes # 0.6 L PT 13.1 H INR 1.2 H APTT 32.6 H D-Dimer Sodium Chloride Carbon Dioxide BUN Creatinine Glucose AST Alkaline Phosphatase Troponin I Total Protein Albumin [facility] 09/09/23 09/09/23 09/10/23 02:34 02:34 08:03 RBC 3.47 L Hgb 10.9 L Hct 32.7 L RDW Plt Count 89 L Lymphocytes # PT INR APTT 47.4 H D-Dimer Sodium Chloride 109 H Carbon Dioxide 19 L BUN 48 H Creatinine 1.54 H Glucose AST Alkaline Phosphatase Troponin I Total Protein Albumin [facility] 09/10/23 09/10/23 09/11/23 08:03 08:03 09:21 RBC 3.37 L Hgb 10.4 L Hct 31.4 L RDW 15.8 H Plt Count 76 L Lymphocytes # PT INR APTT 60.5 H D-Dimer Sodium Chloride Carbon Dioxide BUN 46 H Creatinine 1.41 H Glucose AST 66 H Alkaline Phosphatase 193 H Troponin I Total Protein Albumin [facility] 09/11/23 09/11/23 09:21 09:21 RBC Hgb Hct RDW Plt Count Lymphocytes # PT INR APTT 60.5 H D-Dimer Sodium 134 L Chloride Carbon Dioxide BUN 42 H Creatinine 1.29 H Glucose AST Alkaline Phosphatase 177 H Troponin I Total Protein 5.8 L Albumin 2.9 L TSH Assessment and Plan Assessment: This is an 83-year-old gentleman who presents because of shortness of breath. He was found to be in A. fib with RVR, elevated troponin felt to have acute exacerbation congestive heart failure. During his hospital visit seems that he was confused. Currently is back to baseline and sitting in a chair interactive and the son feels that he is doing drastically better. Episode of confusion is likely delirium to multifactorial: Hospital-induced, some metabolic derangement and his current medical condition--- patient is back to baseline. New onset A. fib with RVR and is on hypertension NSTEMI Acute exacerbation because of heart failure excellent history of GI bleed and hematuria Dyslipidemia Chronic kidney insufficiency Plan: Patient had a CT of the head on 09/08/2023 therefore I'll get a repeat CT of the head to assess if there is any new changes not seen on initial CT. The son does not want the patient to pursue with MRI and is in agreement with just a CT. But if the patient has any further confusion will obtain MRI of the brain I ordered the an EEG. I do not feel this is a seizure. I ordered ammonia level, vitamin B12 and folate Cardiology is on board We'll defer the rest of the medical management to primary and other specialists I discussed with the patient and his son was at bedside Thank you for the consultation. Time with Patient: Greater than 30
--- NOTE | 2023-09-11 16:31 | CT ---
EXAMINATION TYPE: CT brain wo con CT DLP: 1124.4 mGycm, Automated exposure control for dose reduction was used. DATE OF EXAM: 09/11/2023 4:11 PM COMPARISON: 09/08/2023. CLINICAL INDICATION:Male, 83 years old with history of confusion, ams TECHNIQUE: Brain: Axial CT images of the brain were obtained with coronal and sagittal reformats created and rev iewed. Contrast used: None. Oral contrast used: None. FINDINGS: Brain: Extra-axial spaces: No abnormal extra-axial fluid collections. Ventricular system: Dilatation in proportion to cerebral atrophy. Cerebral parenchyma: New loss of Lema-white matter differentiation the right occipital/parietal regio n. Additional area in the posterior right frontal lobe may also be present series 202 image 42. No ac gerry intraparenchymal hemorrhage or mass effect. The remainder of the lema-white junctions are well d ifferentiated. Scattered hypoattenuating areas are seen within the white matter. Cerebellum: Unremarkable. Mass effect: No evidence of midline shift. Intracranial vasculature: Atherosclerotic calcifications of the intracranial vessels. Soft tissues: Normal. Calvarium/osseous structures: No depressed skull fracture. Paranasal sinuses and mastoid air cells: Mild scattered paranasal sinus disease. Visualized orbits: Senile calcific scleral plaques are present. IMPRESSION: 1. The lema-white matter differentiation the right occipital and parietal region compatible with tim lving right occipital lobe/parietal lobe acute/subacute CVA. 2. In the posterior right frontal lobe may also be present. Correlate with MRI.
--- NOTE | 2023-09-11 19:28 | P.PN ---
Subjective Progress Note Date: 09/11/23 History of present illness: This is an 83-year-old male patient of Dr. Huang with past medical history of stable dyspnea on exertion, history of DVT previously on Coumadin hypertension, dyslipidemia, chronic anemia, thrombocytopenia, history of enlarged prostate status post TURP with hematuria and history of GI bleed. We have been asked to evaluate the patient for A-fib with RVR, acute exacerbation of CHF and non-ST elevated myocardial infarction. Patient is seen today in the emergency center waiting for bed on the cardiac stepdown unit. Patient states he has had shortness of breath for the past 3 weeks. He thought he had pneumonia was treated with antibiotics but this did not help and he seemed to be getting worse. He states he has felt faint but no loss consciousness. No palpitations. No chest pain. He states he is feeling better by time of this evaluation. He is status post IV Lasix 60 mg x 1. Patient has been started on Cardizem drip at 5 mg/h and heparin drip. Heart rate is currently running between 90s and 115. EKG atrial fibrillation Chest x-ray: CTA of the chest revealed no pulmonary embolism. Scattered infiltrates. Small to moderate pleural effusion right greater than left. Troponins 2.14, 2.01, 2.03. TSH 5.55 with normal free T4 of 1.6. D-dimer 17. BUN 48, creatinine 1.5. AST 70, ALT 46, alkaline phosphatase 219. proBNP 11,900. Home cardiac medications: Amlodipine 2.5 mg daily, atorvastatin 40 mg at bedtime, bisoprolol 5 mg daily, also on levothyroxine 125 mcg daily. 09/10 Patient is seen in follow-up today on cardiac stepdown unit. Patient has new o nset of confusion. He has been n.p.o. with anticipated possible cardiac catheterization which we will hold until mental status has been evaluated by attending. Patient has been maintained on IV Lasix 40 mg daily. He is also on a heparin drip. Cardizem drip was discontinued yesterday. Patient is in atrial fibrillation with controlled rate. Blood pressure 118/77, heart rate 93, pulse ox 90% on [address] of the brain was performed last evening which revealed no hemorrhage or other acute intracranial abnormality. Atrophy and chronic ischemic white matter changes. Echocardiogram has been obtained and report is pending. 09/11/2023 Pt is sitting up in bedside chair, family at bedside reports that patient's confusion is better today but he is not back to his baseline. Denies any chest pain or pressure. He still has shortness of breath. He has been evaluated by neuro and has repeat head CT pending. Tele reviewed and does show episode of VT this am. ECHO with EF 35-40%, moderate mitral regurgitation, RVSP 45. Physical examination: Gen: This is an 83-year-old male, no acute distress VS: reviewed HEENT: Head is atraumatic, normocephalic. Pupils equal, round. Sclerae is anicteric. NECK: Supple. No JVD. LUNGS: Clear to auscultation. No wheezes or rhonchi. No intercostal retractions. On NC O2. HEART: Regular rate and rhythm. No murmur. ABDOMEN: Soft No tenderness. EXTREMITIES: No pedal edema. No calf tenderness. NEUROLOGICAL: Patient is awake, alert and oriented x3. Assessment: New onset A-fib with RVR, paroxysmal Acute exacerbation of CHF, EF 35-40% Non-ST elevated myocardial infarction History of DVT History of GI bleeding and hematuria Chronic anemia, stable Chronic thrombocytopenia Dyslipidemia Chronic kidney disease V-tach Altered mental status Moderate mitral regurgitation Plan: Continue patient on Cardizem drip and heparin drip VT on telemetry, increase metoprolol to 50 mg daily Neurology working up for CVA with new a-onset AMS, EEG pending as well. Monitor I&O, daily weights, electrolytes and renal function We will plan for left heart cath tomorrow 09/12/23 if patient remains stable. Risks and benefits discussed with patient and family at bedside. NPO after midnight. We will follow. Nurse practitioner note has been reviewed, I agree with documented findings and plan of care. Patient was seen and examined. Objective - Vital Signs Vital signs: Vital Signs Temp 98.0 F 09/11/23 16:00 Pulse 71 09/11/23 17:36 Resp 20 09/11/23 16:00 BP 103/60 09/11/23 16:00 Pulse Ox 100 09/11/23 16:00 FiO2 Intake & Output 09/11/23 09/11/23 09/12/23 06:59 18:59 06:59 Intake Total 945.466 1754 Output Total 410 Balance 871.485 5689 Weight 81 kg Intake: Intake, IV Titration 141.038 Amount Heparin Sod,Pork in 0.45% 141.038 NaCl 25,000 unit In 0.45 % NaCl 1 250ml.bag @ 12 UNITS/KG/HR 8.546 mls/hr IV .Q24H [facility] Rx#: [id number] Oral 540 1080 Output: Urine 410 Other: Voiding Method External Catheter External Catheter # Voids 1 # Bowel Movements 1 0 - Labs CBC & Chem 7: 09/11/23 09:21 09/11/23 09:21 Labs: Abnormal Lab Results - Last 24 Hours (Table) 09/11/23 09/11/23 09/11/23 Range/Units 09:21 09:21 09:21 RBC 3.37 L (4.30-5.90) m/uL Hgb 10.4 L (13.0-17.5) gm/dL Hct 31.4 L (39.0-53.0) % RDW 15.8 H (11.5-15.5) % Plt Count 76 L (150-450) k/uL APTT 60.5 H (22.0-30.0) sec Sodium 134 L (137-145) mmol/L BUN 42 H (9-20) mg/dL Creatinine 1.29 H (0.66-1.25) mg/dL Alkaline Phosphatase 177 H (38-126) U/L Total Protein 5.8 L (6.3-8.2) g/dL Albumin 2.9 L (3.5-5.0) g/dL
--- NOTE | 2023-09-11 19:43 | US ---
EXAMINATION TYPE: US carotid duplex BILAT DATE OF EXAM: 09/11/2023 COMPARISON: NONE CLINICAL INDICATION: Male, 83 years old with history of stroke; Confusion, CVA TECHNIQUE: Carotid duplex ultrasound examination. Indirect Doppler criteria was utilized. FINDINGS: EXAM MEASUREMENTS: RIGHT: Peak Systolic Velocity (PSV) cm/sec ----- Right CCA: 61.2 ----- Right ICA: 61.2 ----- Right ECA: 75.7 ICA/CCA ratio: 1.0 RIGHT: End Diastole cm/sec ----- Right CCA: 15.5 ----- Right ICA: 15.5 ----- Right ECA: 9.8 LEFT: Peak Systolic Velocity (PSV) cm/sec ----- Left CCA: 72.4 ----- Left ICA: 63.6 ----- Left ECA: 96.5 ICA/CCA ratio: 0.9 LEFT: End Diastole cm/sec ----- Left CCA: 15.3 ----- Left ICA: 19.7 ----- Left ECA: 12.4 VERTEBRALS (direction of flow): Right Vertebral: Antegrade Left Vertebral: Antegrade Rhythm: Arrhythmia ENVIRONMENTAL FIELD PROFESSIONAL NOTES: Plaque seen in bilateral bulbs and left prox ICA. No elevated velocities IMPRESSION: Less than 50% stenosis of the bilateral carotid bifurcations. Criteria for Assigning % of Stenosis / Diameter reduction (Estimation based on the indirect measurements of the internal carotid artery velocities (ICA PSV). 1. Normal (no stenosis)=ICA PSV < 125 cm/s: ratio < 2.0: ICA EDV<40 cm/s. 2. Less than 50% stenosis=ICA PSV < 125 cm/s: ratio < 2.0: ICA EDV<40 cm/s. 3. 50 to 69% stenosis=ICA PSV of 125 to 230 cm/s: ration 2.0 ? 4.0: ICA EDV 40-100 cm/s. 4. Greater than 70% stenosis to near occlusion= ICA PSV > 230 cm/s: ratio > 4.0: ICA EDV > 100 cm/s. 5. Near occlusion= ICA PSV velocities may be low or undetectable: variable ratio and ICA EDV. 6. Total occlusion=unable to detect flow.
[2023-09-12 02:49] LABS: Chol/HDL Ratio 1.86 Ratio; LDL Cholesterol,Calculated 26.9 mg/dL (0.0-131.0); VLDL Calculation 8.66 mg/dL (5.00-40.00)
[2023-09-12] MEDS: METOPROLOL SUCCINATE (ER) 50 MG TAB.ER.24H PO SCH (08:19)
--- NOTE | 2023-09-12 08:22 | P.PN ---
Subjective Principal diagnosis: New onset atrial fibrillation with rapid ventricular response. NSTEMI. This is an 83-year-old white male who has not since admitted for worsening shortness of breath and slight pedal edema. He was found to have new onset atrial fibrillation with rapid ventricular response. He is now been placed on Cardizem drip with heparin due to elevated troponin. NSTEMI was diagnosed appreciate cardiology input. The patient has now had 1 day of full diuresis with Cardizem drip. The patient has now been stabilizing and feels that his respiratory status is significantly improved. No voiding difficulties. No hematemesis hematochezia. The patient did have disorientation and CT scan did show evolving parietal CVA. The patient states he does not feel any dizziness or weakness at this point but we will start some therapy to see ambulatory capability. Objective - Vital Signs Vital signs: Vital Signs Temp 97.5 F L 09/12/23 07:23 Pulse 92 09/12/23 07:23 Resp 20 09/12/23 07:23 BP 129/76 09/12/23 07:23 Pulse Ox 93 L 09/12/23 07:23 FiO2 Intake & Output 09/11/23 09/12/23 09/12/23 18:59 06:59 18:59 Intake Total 1080 248.546 Output Total 600 Balance 1080 -351.454 Intake: Intake, IV Titration 248.546 Amount Heparin Sod,Pork in 0.45% 248.546 NaCl 25,000 unit In 0.45 % NaCl 1 250ml.bag @ 12 UNITS/KG/HR 8.546 mls/hr IV .Q24H [facility] Rx#: [id number] Oral 1080 Output: Urine 600 Other: Voiding Method External Catheter External Catheter External Catheter # Bowel Movements 0 - Constitutional General appearance: Present: average body habitus, cooperative, no acute distress. Absent: disheveled - Neck Neck: Absent: lymphadenopathy - Respiratory Respiratory: bilateral: CTA - Cardiovascular Rhythm: regular Heart sounds: normal: S1, S2 Abnormal Heart Sounds: Absent: S3 Gallop - Gastrointestinal General gastrointestinal: Present: soft. Absent: tenderness - Labs CBC & Chem 7: 09/11/23 09:21 09/11/23 09:21 Labs: Abnormal Lab Results - Last 24 Hours (Table) 09/11/23 09/11/23 09/11/23 Range/Units 09:21 09:21 09:21 RBC 3.37 L (4.30-5.90) m/uL Hgb 10.4 L (13.0-17.5) gm/dL Hct 31.4 L (39.0-53.0) % RDW 15.8 H (11.5-15.5) % Plt Count 76 L (150-450) k/uL APTT 60.5 H (22.0-30.0) sec Sodium 134 L (137-145) mmol/L BUN 42 H (9-20) mg/dL Creatinine 1.29 H (0.66-1.25) mg/dL Alkaline Phosphatase 177 H (38-126) U/L Total Protein 5.8 L (6.3-8.2) g/dL Albumin 2.9 L (3.5-5.0) g/dL Vitamin B12 (200.0-944.0) pg/mL 09/11/23 Range/Units 16:33 RBC (4.30-5.90) m/uL Hgb (13.0-17.5) gm/dL Hct (39.0-53.0) % RDW (11.5-15.5) % Plt Count (150-450) k/uL APTT (22.0-30.0) sec Sodium (137-145) mmol/L BUN (9-20) mg/dL Creatinine (0.66-1.25) mg/dL Alkaline Phosphatase (38-126) U/L Total Protein (6.3-8.2) g/dL Albumin (3.5-5.0) g/dL Vitamin B12 1299.0 H (200.0-944.0) pg/mL Assessment and Plan (1) Atrial fibrillation with RVR Current Visit: Yes Status: Acute Code(s): I48.91 - UNSPECIFIED ATRIAL FIBRILLATION SNOMED Code(s): 430871113593667 (2) Elevated troponin I level Current Visit: Yes Status: Acute Code(s): R77.8 - OTHER SPECIFIED ABNORMALITIES OF PLASMA PROTEINS SNOMED Code(s): 330742772 (3) Heart failure Current Visit: Yes Status: Acute Code(s): I50.9 - HEART FAILURE, UNSPECIFIED SNOMED Code(s): 52454448 (4) History of hypothyroidism Current Visit: No Status: Acute Code(s): Z86.39 - PERSONAL HISTORY OF ENDO, NUTRITIONAL AND METABOLIC DISEASE SNOMED Code(s): 208348550 (5) Hyperlipidemia Current Visit: No Status: Acute Code(s): E78.5 - HYPERLIPIDEMIA, UNSPECIFIED SNOMED Code(s): 90254178 (6) Hypertension Current Visit: No Status: Acute Code(s): I10 - ESSENTIAL (PRIMARY) HYPERTENSION SNOMED Code(s): 59007079 (7) CVA (cerebral vascular accident) Current Visit: Yes Status: Acute Code(s): I63.9 - CEREBRAL INFARCTION, UNSPECIFIED SNOMED Code(s): 341381377 Plan: Continue diuresis with rate control. Significant improvement. Check CBC and CMP in a.m. Await echocardiogram result. Continue to follow. Appreciate neurology input. Continue therapy. .
[2023-09-12 08:53] LABS: HCT 34.3 % (39.0-53.0); HGB 11.3 gm/dL (13.0-17.5); Hypochromasia Slight; MCH 30.9 pg (25.0-35.0); MCHC 32.9 g/dL (31.0-37.0); MCV 93.9 fL (80.0-100.0); Mean Platelet Volume 7.7; RBC 3.65 m/uL (4.30-5.90); RDW 15.4 % (11.5-15.5); WBC 8.7 k/uL (3.8-10.6)
[2023-09-12 09:19] LABS: Platelet Count 82 k/uL (150-450)
[2023-09-12 09:55] LABS: ALT 40 U/L (4-49); AST 63 U/L (17-59); African American GFR (CKD) 63 (>60 ml/min/1.73 sqM); Albumin 2.9 g/dL (3.5-5.0); Alkaline Phosphatase 186 U/L (38-126); Anion Gap 4 mmol/L; Blood Urea Nitrogen 40 mg/dL (9-20); Calcium 8.5 mg/dL (8.4-10.2); Carbon Dioxide 28 mmol/L (22-30); Chloride 102 mmol/L (98-107); Glucose 95 mg/dL (74-99); Non-African American GFR(CKD) 54 (>60 ml/min/1.73 sqM); Potassium 3.7 mmol/L (3.5-5.1); Sodium 134 mmol/L (137-145); Total Bilirubin 1.1 mg/dL (0.2-1.3); Total Protein 5.9 g/dL (6.3-8.2)
--- NOTE | 2023-09-12 10:19 | CDI ---
Documentation Clarification Form Date: 09/12/2023 09:54:56 AM From: Hamida Lofton RN, CCDS Phone: [phone] Admit Date: 09/08/2023 05:07:00 PM Patient Name: Vitaliy Avelar Visit Number: [id number] Discharge Date: ATTENTION: The Clinical Documentation Specialists (CDI) and [facility] Coding Staff appreciate your assistance in clarifying documentation. Please respond to the clarification below the line at the bottom and electronically sign. The CDI & [facility] Coding staff will review the response and follow-up if needed. Please note: Queries are made part of the Legal Health Record. If you have any questions, please contact the author of this message via ITS. Dr. Ti Krause Your patient has the documented diagnosis of unspecified CHF. Additional information regarding type, of CHF is requested. History/Risk Factors: GI Bleed, Hyperlipidemia, Hypertension, Prostate Disorder, Thyroid Disorder, Former smoker Clinical Indicators: 83-year-old male with shortness of Breath VS/Pulse OX: 152/79 55 22 96.5 (Temporal) 90% RA BNP: 34487, BUN 49 CR 1.40 GFR 46 Troponin I 2.140, 2.010, 2030 Echocardiogram Results: LVEF estimated at 35-40%. Severely reduced LV systolic function Diastolic dysfunction could not be assessed as patient is in atrial fibrillation. Chest X Ray: Cardiomegaly with pulmonary venous congestion scattered infiltrates as well as small effusions may reflect congestive failure. Infiltrates of other etiology are not excluded. Treatment: Cardiac/Telemetry monitoring Cardizem drip, Heparin drip Metoprolol 25 MG PO Daily Lasix 40 MG Daily ASA 81 MG Daily Atorvastatin 40 MG Daily Monitor I/O, Daily weight electrolyte and renal function. In your professional opinion, can you please clarify the type of CHF if known? [X ] Acute on Chronic Systolic Heart Failure (reduced EF) [ ] Acute on Chronic Diastolic Heart Failure [ ] Acute on Chronic Heart Failure Systolic & Diastolic Heart Failure [ ] Other, please specify [ ] Unable to determine (Template Last Revised: September 2020) MTDD
--- NOTE | 2023-09-12 11:40 | P.PN ---
Subjective Progress Note Date: 09/12/23 I am seeing the patient and he feels he is doing well. Denies of any focal weakness, numbness. He had CT head and showed acute to subacute ischemic stroke over the right occipital parietal region. Objective - Vital Signs Vital signs: Vital Signs Temp 97.5 F L 09/12/23 07:23 Pulse 92 09/12/23 08:00 Resp 20 09/12/23 08:00 BP 129/76 09/12/23 07:23 Pulse Ox 93 L 09/12/23 09:05 FiO2 Intake & Output 09/11/23 09/12/23 09/12/23 18:59 06:59 18:59 Intake Total 1080 248.546 Output Total 600 Balance 1080 -351.454 Intake: Intake, IV Titration 248.546 Amount Heparin Sod,Pork in 0.45% 248.546 NaCl 25,000 unit In 0.45 % NaCl 1 250ml.bag @ 12 UNITS/KG/HR 8.546 mls/hr IV .Q24H [facility] Rx#: [id number] Oral 1080 Output: Urine 600 Other: Voiding Method External Catheter External Catheter External Catheter # Bowel Movements 0 - Exam GENERAL: The patient is sitting in a recliner chair and is not in acute distress. LUNG: Wheezing and that is without ausculation. NEUROLOGICAL: Higher mental function: The patient is awake, alert, oriented to self, place, correctly stated current month but did not know year. Patient is following commands. No aphasia and no neglect. Cranial nerves: The pupils are round, equal and reactive to light and accommodation. 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 Extraocular movement is intact no nystagmus is noted. Facial sensation is normal to touch throughout. The facial strength is normal throughout. Hearing is moderately to severely decrease bilaterally to hand rub. Tongue is midline and moved [id number] without any difficulty. No dysarthria is noted. Shoulder shrug is normal bilaterally. Motor: The strength is 5 over 5 throughout. Normal tone and bulk. Cerebellum: Normal finger to nose bilaterally. Sensation: Sensation is normal to touch throughout. Reflexes (right/left): 2+ throughout. Plantars are downgoing bilaterally. Some other workup during his hospital visit consisted of: Pulse ox was in the low 90s. His heart rate has been fluctuating and has been as high as 110s. His troponin are in the twos. His creatinine on presentation was 1.40 got as high as 1.54 and currently is 1.29 TSH is 5.50 and free T4 is 1.6 Vitamin B12: 1299 Serum folate 12.7 Ammonia <9 Lipid panel TG 43, cholestrol 77, LDL [address] of the head is reported as no hemorrhage or other acute intracranial CT abnormality. Atrophy and chronic microvascular ischemic white matter changes. I personally reviewed the CT head and I agree there is no acute or subacute ischemia. 2D echo was reported as left ventricular ejection fraction of 35-40%. Severely reduced left ventricle systolic function. Diastolic dysfunction could not be assessed as the patient is in atrial fibrillation. Moderate biatrial dilation. Moderate mitral regurgitation. Moderate aortic valve calcification with no st enosis. Repeat CT head it is reported as barnett-white matter differentiation right occipital and parietal region compatible with evolving right occipital lobe/parietal lobe acute/subacute CVA. In the right posterior right frontal lobe may also be present. Correlate with MRI. I personally reviewed CT head and agree with report. Carotid duplex: Less than 50% stenosis of bilateral carotid bifurcation. - Labs CBC & Chem 7: 09/12/23 08:14 09/12/23 08:14 Labs: Abnormal Lab Results - Last 24 Hours (Table) 09/11/23 09/12/23 09/12/23 Range/Units 16:33 08:14 08:14 RBC 3.65 L (4.30-5.90) m/uL Hgb 11.3 L (13.0-17.5) gm/dL Hct 34.3 L (39.0-53.0) % Plt Count 82 L (150-450) k/uL APTT (22.0-30.0) sec Sodium 134 L (137-145) mmol/L BUN 40 H (9-20) mg/dL AST 63 H (17-59) U/L Alkaline Phosphatase 186 H (38-126) U/L Total Protein 5.9 L (6.3-8.2) g/dL Albumin 2.9 L (3.5-5.0) g/dL Vitamin B12 1299.0 H (200.0-944.0) pg/mL 09/12/23 Range/Units 08:14 RBC (4.30-5.90) m/uL Hgb (13.0-17.5) gm/dL Hct (39.0-53.0) % Plt Count (150-450) k/uL APTT 59.2 H (22.0-30.0) sec Sodium (137-145) mmol/L BUN (9-20) mg/dL AST (17-59) U/L Alkaline Phosphatase (38-126) U/L Total Protein (6.3-8.2) g/dL Albumin (3.5-5.0) g/dL Vitamin B12 (200.0-944.0) pg/mL Assessment and Plan Assessment: This is an 83-year-old gentleman who presents because of shortness of breath. He was found to be in A. fib with RVR, elevated troponin felt to have acute exacerbation congestive heart failure. During his hospital visit seems that he was confused. Currently is back to baseline and sitting in a chair interactive and the son feels that he is doing drastically better. Acute to subacute ischemic stroke over right occipital/parietal/frontal region (had confusion and on examination has left lower homonymous quadrantanopia). Confusion improved. Etiology of stroke likely due embolic (has new onset A- fib). No IV thrombolytic since outside window and risk outweigh benefit (had confusion a few days ago and CT head completed yesterday showed stroke). New onset A. fib with RVR NSTEMI Acute exacerbation because of heart failure excellent history of GI bleed and hematuria Dyslipidemia Chronic kidney insufficiency Plan: I ordered MRI Brain. Pending routine EEG. Patient is currently on ASA 81mg daily and is on heparin drip (for a-fib and Non-STEMI) started by cardiology. Because of the size of stroke, would recommend if possible hold anticoagulation for 3 days to avoid hemorrhagic conversion. But if the benefit outweigh the risk then resume heparin drip. His children were concerned that he is on anticoagulation currently and concerned about bleed since he had history GI bleed. I notified them there is a risk for bleed in general with anticoagulation but at same time there is risk for stroke and emboli without anticoagulation use. I will defer use of anticoagulation to cardiology team. Is on lipitor 40mg qhs. Neuro checks. Cardiac monitoring PT, OT and WEB SERVICES ARCHITECT are consulted Cardiology is on board We'll defer the rest of the medical management to primary and other specialists For DVT prophylaxis: Is on heparin drip. I discussed with the patient and his children who are at bedside. Time with Patient: Less than 30
--- NOTE | 2023-09-12 12:19 | MR ---
EXAMINATION TYPE: MR brain wo con DATE OF EXAM: 09/12/2023 11:44 AM CLINICAL INDICATION:Male, 83 years old with history of stroke. confusion; PHH, Confusion, evaluate fo r stroke. COMPARISON: CT brain 09/11/2023. TECHNIQUE: Multi planar, multi sequence imaging was performed through the brain including: T1, T2, In version recovery, Diffusion weighted imaging. No gadolinium was given. FINDINGS: Scattered foci of restricted diffusion are seen throughout the exam bilaterally near the gr ay-white junction. Areas include the right basal ganglia left centrum semiovale, the bilateral fronta l lobes, bilateral parietal lobes and bilateral occipital lobes. Additional area of restricted diffus ion in the bilateral cerebellar hemispheres. Mild cerebral atrophy with proportional dilation of ventricular system. Midline structures show no abnormality. The bone marrow signal is within normal limits. Paranasal sinuses and mastoid air cells: Mild scattered paranasal sinus disease. Visualized orbits: Orbital contents are intact. IMPRESSION: Scattered acute/subacute CVA with the largest area in the right occipital lobe. Correlate for embolic phenomenon.
--- NOTE | 2023-09-12 16:35 | P.PN ---
Subjective Progress Note Date: 09/12/23 Reason for Consult (text): AF W RVR, NSTEMI, AECHF History of present illness: History of present illness: This is an 83-year-old male patient of Dr. Huang with past medical history of stable dyspnea on exertion, history of DVT previously on Coumadin hypertension, dyslipidemia, chronic anemia, thrombocytopenia, history of enlarged prostate status post TURP with hematuria and history of GI bleed. We have been asked to evaluate the patient for A-fib with RVR, acute exacerbation of CHF and non-ST elevated myocardial infarction. Patient is seen today in the emergency center waiting for bed on the cardiac stepdown unit. Patient states he has had shortness of breath for the past 3 weeks. He thought he had pneumonia was treated with antibiotics but this did not help and he seemed to be getting worse. He states he has felt faint but no loss consciousness. No palpitations. No chest pain. He states he is feeling better by time of this evaluation. He is status post IV Lasix 60 mg x 1. Patient has been started on Cardizem drip at 5 mg/h and heparin drip. Heart rate is currently running between 90s and 115. EKG atrial fibrillation Chest x-ray: CTA of the chest revealed no pulmonary embolism. Scattered infiltrates. Small to moderate pleural effusion right greater than left. Troponins 2.14, 2.01, 2.03. TSH 5.55 with normal free T4 of 1.6. D-dimer 17. BUN 48, creatinine 1.5. AST 70, ALT 46, alkaline phosphatase 219. proBNP 11 ,900. Home cardiac medications: Amlodipine 2.5 mg daily, atorvastatin 40 mg at bedtime, bisoprolol 5 mg daily, also on levothyroxine 125 mcg daily. 09/10 Patient is seen in follow-up today on cardiac stepdown unit. Patient has new onset of confusion. He has been n.p.o. with anticipated possible cardiac catheterization which we will hold until mental status has been evaluated by attending. Patient has been maintained on IV Lasix 40 mg daily. He is also on a heparin drip. Cardizem drip was discontinued yesterday. Patient is in atrial fibrillation with controlled rate. Blood pressure 118/77, heart rate 93, pulse ox 90% on [address] of the brain was performed last evening which revealed no hemorrhage or other acute intracranial abnormality. Atrophy and chronic ischemic white matter changes. Echocardiogram has been obtained and report is pending. 09/11/2023 Pt is sitting up in bedside chair, family at bedside reports that patient's confusion is better today but he is not back to his baseline. Denies any chest pain or pressure. He still has shortness of breath. He has been evaluated by neuro and has repeat head CT pending. Tele reviewed and does show episode of VT this am. ECHO with EF 35-40%, moderate mitral regurgitation, RVSP 45. 09/12 Patient is followed by neurology and workup for acute to subacute ischemic stroke. He underwent MRI and EEG today. Patient's mental status is improved today from yesterday. Will plan to make him n.p.o. for possible cardiac catheterization tomorrow. Patient will remain on heparin drip for now. Anticoagulation will be addressed following cardiac catheterization. Blood pressure 128/80, heart rate 86, pulse ox 99% on 4 L nasal cannula. Patient remains in atrial fibrillation. Physical examination: Gen: This is an 83-year-old male, no acute distress VS: reviewed HEENT: Head is atraumatic, normocephalic. Pupils equal, round. Sclerae is anicteric. NECK: Supple. No JVD. LUNGS: Clear to auscultation. No wheezes or rhonchi. No intercostal retractions. On NC O2. HEART: Regular rate and rhythm. No murmur. ABDOMEN: Soft No tenderness. EXTREMITIES: No pedal edema. No calf tenderness. NEUROLOGICAL: Patient is awake, alert and oriented x3. Assessment: New onset A-fib with RVR, paroxysmal, currently atrial fibrillation with rate control Acute exacerbation of CHF, EF 35-40% Non-ST elevated myocardial infarction History of DVT History of GI bleeding and hematuria Chronic anemia, stable Chronic thrombocytopenia Dyslipidemia Chronic kidney disease V-tach Altered mental status Moderate mitral regurgitation CVA Plan: Continue patient on heparin drip VT on telemetry, continue metoprolol 50 mg daily We will plan for left heart cath tomorrow 09/13/23 if patient remains stable. Risks and benefits discussed with patient and family at bedside. NPO after midnight. We will follow. Nurse practitioner note has been reviewed, I agree with documented findings and plan of care. Patient was seen and examined. Objective - Vital Signs Vital signs: Vital Signs Temp 97.6 F 09/12/23 16:00 Pulse 86 09/12/23 16:00 Resp 18 09/12/23 16:00 BP 128/80 09/12/23 16:00 Pulse Ox 99 09/12/23 16:00 FiO2 Intake & Output 09/11/23 09/12/23 09/12/23 18:59 06:59 18:59 Intake Total 1080 248.546 360 Output Total 600 300 Balance 1080 -351.454 60 Intake: Intake, IV Titration 248.546 Amount Heparin Sod,Pork in 0.45% 248.546 NaCl 25,000 unit In 0.45 % NaCl 1 250ml.bag @ 12 UNITS/KG/HR 8.546 mls/hr IV .Q24H [facility] Rx#: [id number] Oral 1080 360 Output: Urine 600 300 Other: Voiding Method External Catheter External Catheter External Catheter # Voids 1 # Bowel Movements 0 - Labs CBC & Chem 7: 09/12/23 08:14 09/12/23 08:14 Labs: Abnormal Lab Results - Last 24 Hours (Table) 09/11/23 09/12/23 09/12/23 Range/Units 16:33 08:14 08:14 RBC 3.65 L (4.30-5.90) m/uL Hgb 11.3 L (13.0-17.5) gm/dL Hct 34.3 L (39.0-53.0) % Plt Count 82 L (150-450) k/uL APTT (22.0-30.0) sec Sodium 134 L (137-145) mmol/L BUN 40 H (9-20) mg/dL AST 63 H (17-59) U/L Alkaline Phosphatase 186 H (38-126) U/L Total Protein 5.9 L (6.3-8.2) g/dL Albumin 2.9 L (3.5-5.0) g/dL Vitamin B12 1299.0 H (200.0-944.0) pg/mL 09/12/23 Range/Units 08:14 RBC (4.30-5.90) m/uL Hgb (13.0-17.5) gm/dL Hct (39.0-53.0) % Plt Count (150-450) k/uL APTT 59.2 H (22.0-30.0) sec Sodium (137-145) mmol/L BUN (9-20) mg/dL AST (17-59) U/L Alkaline Phosphatase (38-126) U/L Total Protein (6.3-8.2) g/dL Albumin (3.5-5.0) g/dL Vitamin B12 (200.0-944.0) pg/mL
--- NOTE | 2023-09-13 00:04 | EEG ---
ELECTROENCEPHALOGRAM REPORT CLINICAL HISTORY: This is an 83-year-old gentleman with altered mental status. The video EEG is obtained to evaluate for seizure epileptiform activity. The patient is not on any antiepileptic drugs. His EEG type is a routine 21-channel EEG with video using the 10/20 electrode system. DESCRIPTION: Wakefulness and drowsiness is obtained. During awake state, the background consists of [id number] voltage of 6-6.5 hertz activity that is well modulated and sustained. There is no physiological stage 2 sleep architecture. There is no physiological stage 2 sleep architecture. There is no focal slowing. Interictal and ictal is none. ACTIVATION PROCEDURE: Photic stimulation. Hyperventilation is not performed. CLINICAL INTERPRETATION: This is an abnormal routine EEG. The background slowing is suggestive of mild encephalopathy. There is no focal slowing, epileptiform discharge, or seizure on the EEG. Clinical correlation is recommended. ZAMZAM / LEEANN: [id number] / MTDD
[2023-09-13] MEDS ORDERED: ALPRAZolam 0.25 MG TAB PO PRN (08:36)
[2023-09-13] MEDS ORDERED: NITROGLYCERIN SL TABS 0.4 MG TAB SUBLINGUAL PRN (08:36)
[2023-09-13 09:28] LABS: HCT 34.1 % (39.0-53.0); HGB 11.4 gm/dL (13.0-17.5); Hypochromasia Slight; MCH 31.6 pg (25.0-35.0); MCHC 33.6 g/dL (31.0-37.0); MCV 94.1 fL (80.0-100.0); Mean Platelet Volume 7.9; RBC 3.62 m/uL (4.30-5.90); RDW 15.2 % (11.5-15.5); WBC 8.2 k/uL (3.8-10.6)
[2023-09-13 09:39] LABS: Platelet Count 77 k/uL (150-450)
[2023-09-13] MEDS: ASPIRIN 325 MG TAB PO STA (10:43)
[2023-09-13] MEDS: ATORVASTATIN 80 MG TAB PO STA (10:43)
--- NOTE | 2023-09-13 13:11 | P.PN ---
Subjective Progress Note Date: 09/13/23 I am following-up with patient and he feels he is about the same. Denies of any new neurological issues. Objective - Vital Signs Vital signs: Vital Signs Temp 97.5 F L 09/13/23 12:35 Pulse 85 09/13/23 12:35 Resp 20 09/13/23 12:35 BP 115/63 09/13/23 12:35 Pulse Ox 95 09/13/23 12:35 FiO2 Intake & Output 09/12/23 09/13/23 09/13/23 18:59 06:59 18:59 Intake Total 360 213.365 Output Total 300 600 250 Balance 60 -386.635 -250 Weight 80 kg Intake: Intake, IV Titration 213.365 Amount Heparin Sod,Pork in 0.45% 213.365 NaCl 25,000 unit In 0.45 % NaCl 1 250ml.bag @ 12 UNITS/KG/HR 8.546 mls/hr IV .Q24H [facility] Rx#: [id number] Oral 360 0 Output: Urine 300 600 250 Other: Voiding Method External Catheter External Catheter External Catheter # Voids 1 - Exam GENERAL: The patient is sitting in a recliner chair and is not in acute distress. LUNG: Wheezing and that is without ausculation. NEUROLOGICAL: Higher mental function: The patient is awake, alert, oriented to self, place, correctly stated current month but did not know year. Patient is following commands. No aphasia and no neglect. Cranial nerves: The pupils are round, equal and reactive to light and accommodation. 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 Extraocular movement is intact no nystagmus is noted. Facial sensation is normal to touch throughout. The facial strength is normal throughout. Hearing is moderately to severely decrease bilaterally to hand rub. Tongue is midline and moved [id number] without any difficulty. No dysarthria is noted. Shoulder shrug is normal bilaterally. Motor: The strength is 5 over 5 throughout. Normal tone and bulk. Cerebellum: Normal finger to nose bilaterally. Sensation: Sensation is normal to touch throughout. Reflexes (right/left): 2+ throughout. Plantars are downgoing bilaterally. Some other workup during his hospital visit consisted of: Pulse ox was in the low 90s. His heart rate has been fluctuating and has been as high as 110s. His troponin are in the twos. His creatinine on presentation was 1.40 got as high as 1.54 and currently is 1.29 TSH is 5.50 and free T4 is 1.6 Vitamin B12: 1299 Serum folate 12.7 Ammonia <9 Lipid panel TG 43, cholestrol 77, LDL [address] of the head is reported as no hemorrhage or other acute intracranial CT abnormality. Atrophy and chronic microvascular ischemic white matter changes. I personally reviewed the CT head and I agree there is no acute or subacute is chemia. 2D echo was reported as left ventricular ejection fraction of 35-40%. Severely reduced left ventricle systolic function. Diastolic dysfunction could not be assessed as the patient is in atrial fibrillation. Moderate biatrial dilation. Moderate mitral regurgitation. Moderate aortic valve calcification with no stenosis. Repeat CT head it is reported as barnett-white matter differentiation right occipital and parietal region compatible with evolving right occipital lobe/parietal lobe acute/subacute CVA. In the right posterior right frontal lobe may also be present. Correlate with MRI. I personally reviewed CT head and agree with report. Carotid duplex: Less than 50% stenosis of bilateral carotid bifurcation. MRI Brain: It is reported as scattered acute/subacute CVA with larges in the right occipital lobe. Correlate for embolic phenomenon. I personally reviewed MRI and feel it is bilateral hemispheric with largest over the right occipital region. Routine EEG: Is abnormal. The background slowing is suggestive of mild encephalopathy. There is no focal slowing, epileptiform discharge or seizure on the EEG. - Labs CBC & Chem 7: 09/13/23 07:14 09/12/23 08:14 Labs: Abnormal Lab Results - Last 24 Hours (Table) 09/13/23 09/13/23 Range/Units 07:14 07:15 RBC 3.62 L (4.30-5.90) m/uL Hgb 11.4 L (13.0-17.5) gm/dL Hct 34.1 L (39.0-53.0) % Plt Count 77 L (150-450) k/uL APTT 70.9 H (22.0-30.0) sec Assessment and Plan Assessment: This is an 83-year-old gentleman who presents because of shortness of breath. He was found to be in A. fib with RVR, elevated troponin felt to have acute exacerbation congestive heart failure. During his hospital visit seems that he was confused. Currently is back to baseline and sitting in a chair interactive and the son feels that he is doing drastically better. Acute to subacute ischemic stroke over bilateral hemipsheric with largest over the right occipital. (had confusion and on examination has left lower homonymous quadrantanopia). Confusion improved. Etiology of stroke likely due embolic (has new onset A-fib). No IV thrombolytic since outside window and risk outweigh benefit New onset A. fib with RVR NSTEMI Acute exacerbation because of heart failure excellent history of GI bleed and hematuria Dyslipidemia Chronic kidney insufficiency Plan: Patient is currently on ASA 81mg daily and is on heparin drip (for a-fib and Non-STEMI) started by cardiology. Because of the size of stroke, would recommend if possible hold anticoagulation for 2 days to avoid hemorrhagic conversion. But if the benefit outweigh the risk then resume heparin drip. His children were concerned that he is on anticoagulation currently and concerned about bleed since he had history GI bleed. I notified them there is a risk for bleed in general with anticoagulation but at same time there is risk for stroke and emboli without anticoagulation use. I will defer use of anticoagulation to cardiology team. I spoke with Dr. Krause and heparin is continued from cardiology perspective. Is on lipitor 40mg qhs. Neuro checks. Cardiac monitoring PT, OT and MARINA PORTER are consulted Cardiology is on board We'll defer the rest of the medical management to primary and other specialists For DVT prophylaxis: Is on heparin drip. I discussed with the patient and his children who are at bedside and his . Dr. Arias will resume neurology service on 09/15/2023 A.M. Time with Patient: Less than 30
[2023-09-13] MEDS ORDERED: fentaNYL (PF) 50 MCG/ML 2 ML AMP ONE (14:22)
[2023-09-13] MEDS: MIDAZOLAM 2 MG/2 ML VIAL IVP ONE (14:28)
[2023-09-13] MEDS: fentaNYL (PF) 50 MCG/1 ML VIAL IVP ONE (14:28)
[2023-09-13] MEDS: LIDOCAINE 1% INJ 10MG/ML (20 ML MDV) SQ ONE (14:29)
[2023-09-13] MEDS: VERAPAMIL SYRINGE (5 MG/10 ML) INTRAARTER ONE (14:33)
[2023-09-13] MEDS: IV FLUID CONTINUATION 1,000 ML IV ONE (14:34)
[2023-09-13] MEDS: IOPAMIDOL-370 100ML BTL INJ ONE (14:42)
--- NOTE | 2023-09-13 14:44 | P.CARDCATH ---
Description of Procedure: PROCEDURES PERFORMED: Left heart catheterization, bilateral coronary angiography INDICATION: Non-STEMI CONSENT:I have discussed the risks, benefits and alternative therapies for the above-mentioned procedure and for both sedation/analgesia as well as necessary blood product administration, if indicated, as they pertain to this patient. The patient has indicated understanding and acceptance of the risks and procedures discussed. PROCEDURE: After the risks, benefits and alternatives of the above mentioned procedure explained in detail with the patient, informed consent was obtained. Patient was taken to the catheterization lab and prepped and draped in usual fashion. Ultrasound guidance was used to assess for arterial access. 1% lidocaine was used to anesthetize the right radial artery. A 6-Botswanan sheath was placed in the right radial artery using modified Seldinger technique and ultrasound guidance. Left coronary angiography was performed with a 5-[place] JL 3.5 catheter and right coronary angiography was performed with a 5-[place]wan[place] AR2 catheter in various views. A 5-[place] FR5 catheter was inserted into the left ventricle and pressure measurements were obtained. The right radial sheath was removed and a TR band was placed with hemostasis achieved. The patient tolerated the procedure well. Patient was transported back to the post catheterization holding area in stable condition. Conscious Sedation: Patient was monitored under the direct supervision of myself for conscious sedation using Versed and fentanyl for a total duration of 12 minutes HEMODYNAMICS: Ao: 93/52 LV: 91/1, LVEDP 10 SELECTIVE CORONARY ARTERIOGRAPHY: LEFT MAIN: The left main is a large caliber vessel which bifurcates into the LAD and circumflex. There is no significant stenosis. LEFT ANTERIOR DESCENDING CORONARY ARTERY: LAD is a large caliber vessel which wraps around to the apex. There is diffuse mild luminal irregularities with up to 20% mid LAD stenosis LEFT CIRCUMFLEX CORONARY ARTERY: Left circumflex is a moderate caliber vessel with proximal circumflex 10-20% stenosis RIGHT CORONARY ARTERY: The right coronary artery is a large caliber vessel which gives off a PDA and PLV branch and is the dominant vessel. There is a proximal RCA 20% stenosis FINAL IMPRESSION: 1. Mild CAD as described above including 10-20% LAD, 10-20% circumflex and 20% RCA stenosis. 2. Normal left sided filling pressures PLAN: 1. Aggressive risk factor modification per most recent ACC/AHA guidelines. 2. Follow-up in the office in 1-2 weeks.
--- NOTE | 2023-09-13 17:33 | XR ---
EXAMINATION TYPE: XR chest 1V DATE OF EXAM: 09/13/2023 COMPARISON: 05/09/2024 HISTORY: Shortness of breath TECHNIQUE: Single frontal view of the chest is obtained. FINDINGS: There has been no interval change in the small right pleural effusion and diffuse interstitial and pa rtially consolidative opacities greatest in the left upper lobe. There is persistent moderate cardiom egaly. There is no pneumothorax. The osseous structures are intact IMPRESSION: 1. Moderate cardiomegaly. 2. Acute cardiopulmonary disease is described above with no interval change. Findings most likely rep resent CHF with pulmonary edema. Infectious etiologies not excluded.
[2023-09-14] MEDS ORDERED: HEPARIN SODIUM,PORCINE 10,000 UNIT in SODIUM CHLORIDE 0.9% 1,000 ML IRRIGATION PRN (07:00)
[2023-09-14] MEDS ORDERED: HEPARIN SODIUM,PORCINE (1 ML) 2,500 UNIT in SODIUM CHLORIDE 0.9% 250 ML IRRIGATION PRN (07:00)
[2023-09-14 09:53] LABS: Basophils % (A) 0 %; Eosinophils # (A) 0.1 k/uL (0-0.7); Eosinophils % (A) 2 %; HCT 35.5 % (39.0-53.0); HGB 11.5 gm/dL (13.0-17.5); Hypochromasia Slight; Lymphocytes # (A) 0.4 k/uL (1.0-4.8); Lymphocytes % (A) 6 %; MCH 30.4 pg (25.0-35.0); MCHC 32.4 g/dL (31.0-37.0); Mean Platelet Volume 7.5; Monocytes # (A) 0.7 k/uL (0-1.0); Monocytes % (A) 10 %; Neutrophils % (A) 80 %; RBC 3.77 m/uL (4.30-5.90); RDW 15.2 % (11.5-15.5); WBC 7.5 k/uL (3.8-10.6)
[2023-09-14 09:59] LABS: Platelet Count 79 k/uL (150-450)
[2023-09-14 10:03] LABS: African American GFR (CKD) 75 (>60 ml/min/1.73 sqM); Anion Gap 6 mmol/L; Blood Urea Nitrogen 31 mg/dL (9-20); Calcium 8.4 mg/dL (8.4-10.2); Carbon Dioxide 26 mmol/L (22-30); Chloride 100 mmol/L (98-107); Glucose 102 mg/dL (74-99); Non-African American GFR(CKD) 65 (>60 ml/min/1.73 sqM); Potassium 3.8 mmol/L (3.5-5.1); Sodium 132 mmol/L (137-145)
--- NOTE | 2023-09-14 10:40 | P.PN ---
Subjective Progress Note Date: 09/14/23 Reason for Consult (text): AF W RVR, NSTEMI, AECHF History of present illness: History of present illness: This is an 83-year-old male patient of Dr. Huang with past medical history of stable dyspnea on exertion, history of DVT previously on Coumadin hypertension, dyslipidemia, chronic anemia, thrombocytopenia, history of enlarged prostate status post TURP with hematuria and history of GI bleed. We have been asked to evaluate the patient for A-fib with RVR, acute exacerbation of CHF and non-ST elevated myocardial infarction. Patient is seen today in the emergency center waiting for bed on the cardiac stepdown unit. Patient states he has had shortness of breath for the past 3 weeks. He thought he had pneumonia was treated with antibiotics but this did not help and he seemed to be getting worse. He states he has felt faint but no loss consciousness. No palpitations. No chest pain. He states he is feeling better by time of this evaluation. He is status post IV Lasix 60 mg x 1. Patient has been started on Cardizem drip at 5 mg/h and heparin drip. Heart rate is currently running between 90s and 115. EKG atrial fibrillation Chest x-ray: CTA of the chest revealed no pulmonary embolism. Scattered infiltrates. Small to moderate pleural effusion right greater than left. Troponins 2.14, 2.01, 2.03. TSH 5.55 with normal free T4 of 1.6. D-dimer 17. BUN 48, creatinine 1.5. AST 70, ALT 46, alkaline phosphatase 219. proBNP 11 ,900. Home cardiac medications: Amlodipine 2.5 mg daily, atorvastatin 40 mg at bedtime, bisoprolol 5 mg daily, also on levothyroxine 125 mcg daily. 09/10 Patient is seen in follow-up today on cardiac stepdown unit. Patient has new onset of confusion. He has been n.p.o. with anticipated possible cardiac catheterization which we will hold until mental status has been evaluated by attending. Patient has been maintained on IV Lasix 40 mg daily. He is also on a heparin drip. Cardizem drip was discontinued yesterday. Patient is in atrial fibrillation with controlled rate. Blood pressure 118/77, heart rate 93, pulse ox 90% on [address] of the brain was performed last evening which revealed no hemorrhage or other acute intracranial abnormality. Atrophy and chronic ischemic white matter changes. Echocardiogram has been obtained and report is pending. 09/11/2023 Pt is sitting up in bedside chair, family at bedside reports that patient's confusion is better today but he is not back to his baseline. Denies any chest pain or pressure. He still has shortness of breath. He has been evaluated by neuro and has repeat head CT pending. Tele reviewed and does show episode of VT this am. ECHO with EF 35-40%, moderate mitral regurgitation, RVSP 45. 09/12 Patient is followed by neurology and workup for acute to subacute ischemic stroke. He underwent MRI and EEG today. Patient's mental status is improved today from yesterday. Will plan to make him n.p.o. for possible cardiac catheterization tomorrow. Patient will remain on heparin drip for now. Anticoagulation will be addressed following cardiac catheterization. Blood pressure 128/80, heart rate 86, pulse ox 99% on 4 L nasal cannula. Patient remains in atrial fibrillation. 09/14 Yesterday, patient underwent cardiac catheterization with Dr. Krause which revealed mild coronary artery disease with 10 to 20% LAD, 10 to 20% circumflex and 20% RCA stenosis. Normal left-sided filling pressures. Plan is for aggressive risk factor modification and follow-up in the office in 1 to 2 weeks. Blood pressure 143/92, heart rate in the 70s and 80s, pulse ox 94% on 3 L nasal cannula. Repeat chest x-ray reveals moderate cardiomegaly. Acute cardiopulmonary disease as described above with no interval change. Findings most likely represent CHF or pulmonary edema. Infectious etiologies not excluded. Physical examination: Gen: This is an 83-year-old male, no acute distress VS: reviewed HEENT: Head is atraumatic, normocephalic. Pupils equal, round. Sclerae is anicteric. NECK: Supple. No JVD. LUNGS: Clear to auscultation. No wheezes or rhonchi. No intercostal retractions. On NC O2. HEART: Regular rate and rhythm. No murmur. ABDOMEN: Soft No tenderness. EXTREMITIES: No pedal edema. No calf tenderness. NEUROLOGICAL: Patient is awake, alert and oriented x3. Assessment: New onset A-fib with RVR, paroxysmal, currently atrial fibrillation with rate control Acute exacerbation of systolic CHF, EF 35-40% Non-ST elevated myocardial infarction Cardiomyopathy possible Takotsubo syndrome History of DVT History of GI bleeding and hematuria Chronic anemia, stable Chronic thrombocytopenia Dyslipidemia Chronic kidney disease V-tach Altered mental status Moderate mitral regurgitation CVA Plan: Continue current cardiac medications: Aspirin 81 mg daily, atorvastatin 40 mg daily, Lasix 40 mg daily, Toprol-XL 50 mg daily Regarding anticoagulation,recommendations for anticoagulation and patient and family are in agreement. Patient will be started on Eliquis 5 mg bid. Discussed option of cardioversion down the road once CVA symptoms are settled. Patient is cleared for discharge from cardiology and may follow up in one week with Dr. Krause. Nurse practitioner note has been reviewed, I agree with documented findings and plan of care. Patient was seen and examined. Objective - Vital Signs Vital signs: Vital Signs Temp 98.2 F 09/14/23 03:32 Pulse 81 09/14/23 03:32 Resp 18 09/14/23 03:32 BP 143/92 09/14/23 03:32 Pulse Ox 94 L 09/14/23 03:32 FiO2 Intake & Output 09/13/23 09/14/23 09/14/23 18:59 06:59 18:59 Intake Total 519.24 0 118 Output Total 1350 200 Balance -830.76 -200 118 Weight 77 kg Intake: IV 101.24 Heparin Sod,Pork in 0.45% 51.24 NaCl 25,000 unit In 0.45 % NaCl 1 250ml.bag @ 12 UNITS/KG/HR 8.546 mls/hr IV .Q24H [facility] Rx#: [id number] Intake, IV Titration 300 Amount IV Fluid Continuation 1, 300 000 ml @ 0 mls/hr IV .[facility] -[facility] Rx#:[id number] Oral 118 0 118 Output: Urine 1350 200 Other: Voiding Method External Catheter External Catheter - Labs CBC & Chem 7: 09/14/23 09:04 09/14/23 09:04 Labs: Abnormal Lab Results - Last 24 Hours (Table) 09/13/23 09/13/23 Range/Units 07:14 07:15 RBC 3.62 L (4.30-5.90) m/uL Hgb 11.4 L (13.0-17.5) gm/dL Hct 34.1 L (39.0-53.0) % Plt Count 77 L (150-450) k/uL APTT 70.9 H (22.0-30.0) sec
[2023-09-14] MEDS: APIXABAN 5 MG TAB PO SCH (12:31)
[2023-09-14] MEDS: ALPRAZolam 0.5 MG TAB PO PRN (19:50)
--- NOTE | 2023-09-15 00:20 | P.PN ---
Subjective Progress Note Date: 09/13/23 Principal diagnosis: New onset atrial fibrillation with rapid ventricular response. NSTEMI. This is an 83-year-old white male who has not since admitted for worsening shortness of breath and slight pedal edema. He was found to have new onset atrial fibrillation with rapid ventricular response. He is now been placed on Cardizem drip with heparin due to elevated troponin. NSTEMI was diagnosed appreciate cardiology input. The patient has now had 1 day of full diuresis wit h Cardizem drip. The patient has now been stabilizing and feels that his respiratory status is significantly improved. No voiding difficulties. No hematemesis hematochezia. The patient did have disorientation and CT scan did show evolving parietal CVA. 09/13/2022 Patient is currently lying in the bed. Awake alert and oriented. Requiring 3 L oxygen via nasal cannula. Denied complaints of chest pain or worsening shortness of breath. No leg swelling. No cough or sputum production. Patient is still having slurred speech otherwise. Laboratory data showed WBC 8.2 hemoglobin 11.4 and platelets 77 Patient underwent cardiac catheterization today showed mild CAD and aggressive risk factor modification was recommended. Patient is being continued on aspirin, statin send metoprolol. on Lasix 40 mg p.o. daily. Currently on heparin drip. Cardiology and neurology is on board. Current medications reviewed. Objective - Vital Signs Vital signs: Vital Signs Temp 97.5 F L 09/13/23 12:35 Pulse 85 09/13/23 12:35 Resp 20 09/13/23 12:35 BP 115/63 09/13/23 12:35 Pulse Ox 95 09/13/23 12:35 FiO2 Intake & Output 09/12/23 09/13/23 09/13/23 18:59 06:59 18:59 Intake Total 360 213.365 Output Total 300 600 950 Balance 60 -386.635 -950 Weight 80 kg Intake: Intake, IV Titration 213.365 Amount Heparin Sod,Pork in 0.45% 213.365 NaCl 25,000 unit In 0.45 % NaCl 1 250ml.bag @ 12 UNITS/KG/HR 8.546 mls/hr IV .Q24H [facility] Rx#: [id number] Oral 360 0 Output: Urine 300 600 950 Other: Voiding Method External Catheter External Catheter External Catheter # Voids 1 - Exam PHYSICAL EXAMINATION: Patient is lying in the bed comfortably, no acute distress, awake alert and oriented.. HEENT: Normocephalic. Neck is supple. Pupils reactive. Nostrils clear. Oral cavity is moist. Neck reveals no JVD, carotid bruits, or thyromegaly. CHEST EXAMINATION: Trachea is central. Symmetrical expansion. Lung lim clear to auscultation and percussion. CARDIAC: Normal S1, S2 with no gallops. No murmurs ABDOMEN: Soft. Bowel sounds present. Nontender. No organomegaly. No abdominal bruits. Extremities: reveal no edema. No clubbing or cyanosis Neurologically awake, alert, oriented x2-3 slurred speech and generalized weakness. Skin: No rash or skin lesions. Psychiatric: Coperative. Could not be assisted completely., Musculoskeletal: No joint swelling or deformity. - Labs CBC & Chem 7: 09/14/23 09:04 09/14/23 09:04 Labs: Abnormal Lab Results - Last 24 Hours (Table) 09/13/23 09/13/23 Range/Units 07:14 07:15 RBC 3.62 L (4.30-5.90) m/uL Hgb 11.4 L (13.0-17.5) gm/dL Hct 34.1 L (39.0-53.0) % Plt Count 77 L (150-450) k/uL APTT 70.9 H (22.0-30.0) sec Assessment and Plan Assessment: Acute to subacute ischemic CVA with bilateral lateral hemispheric with the largest over right occipital. Likely due to embolic New onset atrial fibrillation with a rapid ventricular rate. Patient remains in atrial fibrillation Acute non-ST elevated [place] status postcardiac catheterization. No PCI. Acute CHF with ejection fraction 35 to 40%. Acute hypoxic respiratory failure likely due to CHF. Currently on 3 L via nasal cannula. Moderate MR Prior history of DVT and on anticoagulation with Coumadin for several years.. Was stopped few months ago due to GI bleed History of GI bleed and hematuria Chronic thrombocytopenia CKD Hyperlipidemia History of V. tach Plan: Patient will be continued on telemonitoring. Continue aspirin and statins and metoprolol. Titrate down oxygen to room air. Patient underwent cardiac catheterization today and no PCI. Currently on heparin drip and is planning to initiate oral anticoagulation tomorrow. PT OT and [employer] follow-up Discussed with his daughter at bedside in detail. Prognosis is guarded. . Time with Patient: Greater than 30
--- NOTE | 2023-09-15 00:22 | P.PN ---
Subjective Progress Note Date: 09/14/23 Principal diagnosis: New onset atrial fibrillation with rapid ventricular response. NSTEMI. This is an 83-year-old white male who has not since admitted for worsening shortness of breath and slight pedal edema. He was found to have new onset atrial fibrillation with rapid ventricular response. He is now been placed on Cardizem drip with heparin due to elevated troponin. NSTEMI was diagnosed appreciate cardiology input. The patient has now had 1 day of full diuresis wit h Cardizem drip. The patient has now been stabilizing and feels that his respiratory status is significantly improved. No voiding difficulties. No hematemesis hematochezia. The patient did have disorientation and CT scan did show evolving parietal CVA. 09/13/2022 Patient is currently lying in the bed. Awake alert and oriented. Requiring 3 L oxygen via nasal cannula. Denied complaints of chest pain or worsening shortness of breath. No leg swelling. No cough or sputum production. Patient is still having slurred speech otherwise. Laboratory data showed WBC 8.2 hemoglobin 11.4 and platelets 77 Patient underwent cardiac catheterization today showed mild CAD and aggressive risk factor modification was recommended. Patient is being continued on aspirin, statin send metoprolol. on Lasix 40 mg p.o. daily. Currently on heparin drip. Cardiology and neurology is on board. 09/14/2023 Patient is currently sitting in the chair. Awake alert and oriented x 3. On 3 L oxygen via nasal cannula. Chest x-ray showed moderate cardiomegaly with acute cardiopulmonary disease with no interval change. Findings most likely represent CHF or pulmonary edema. Infectious etiologies not excluded. Laboratory data showed WBC 7.4 hemoglobin 11.5 and platelets 79 BUN 31 creatinine 1.06 and blood sugar 102. Patient remains on Lasix 40 mg p.o. daily. Cardiology and neurology is on board. Current medications reviewed. Objective - Vital Signs Vital signs: Vital Signs Temp 98 F 09/14/23 16:41 Pulse 60 09/14/23 16:41 Resp 20 09/14/23 16:41 BP 145/88 09/14/23 16:41 Pulse Ox 96 09/14/23 16:41 FiO2 Intake & Output 09/13/23 09/14/23 09/14/23 18:59 06:59 18:59 Intake Total 519.24 0 118 Output Total 1350 200 700 Balance -830.76 -200 -582 Weight 77 kg Intake: IV 101.24 Heparin Sod,Pork in 0.45% 51.24 NaCl 25,000 unit In 0.45 % NaCl 1 250ml.bag @ 12 UNITS/KG/HR 8.546 mls/hr IV .Q24H [facility] Rx#: [id number] Intake, IV Titration 300 Amount IV Fluid Continuation 1, 300 000 ml @ 0 mls/hr IV .[facility] Rx#:[id number] Oral 118 0 118 Output: Urine 1350 200 700 Other: Voiding Method External Catheter External Catheter External Catheter - Exam PHYSICAL EXAMINATION: Patient is lying in the bed comfortably, no acute distress, awake alert and oriented.. HEENT: Normocephalic. Neck is supple. Pupils reactive. Nostrils clear. Oral cavity is moist. Neck reveals no JVD, carotid bruits, or thyromegaly. CHEST EXAMINATION: Trachea is central. Symmetrical expansion. Lung lim clear to auscultation and percussion. CARDIAC: Normal S1, S2 with no gallops. No murmurs ABDOMEN: Soft. Bowel sounds present. Nontender. No organomegaly. No abdominal bruits. Extremities: reveal no edema. No clubbing or cyanosis Neurologically awake, alert, oriented x2-3 slurred speech and generalized weakness. Skin: No rash or skin lesions. Psychiatric: Coperative. Could not be assisted completely., Musculoskeletal: No joint swelling or deformity. 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 Likely due to embolic New onset atrial fibrillation with a rapid ventricular rate. Patient remains in atrial fibrillation Acute non-ST elevated IA status postcardiac catheterization. No PCI. Acute CHF with ejection fraction 35 to 40%. Acute hypoxic respiratory failure likely due to CHF. Currently on 3 L via nasal cannula. Moderate MR Prior history of DVT and on anticoagulation with Coumadin for several years.. Was stopped few months ago due to GI bleed History of GI bleed and hematuria Chronic thrombocytopenia CKD Hyperlipidemia History of V. tach Plan: Patient will be continued on telemonitoring. Continue aspirin and statins and metoprolol. Patient will be continued on Lasix 40 mg p.o. daily and Titrate down oxygen to room air. Patient underwent cardiac catheterization today and no PCI. Currently on heparin drip and is planning to initiate oral anticoagulation tomorrow. PT OT and SUPERVISOR TELEPHONE ANSWERING SERVICE follow-up Discussed with his son at bedside in detail. Prognosis is guarded. . Time with Patient: Greater than 30
[2023-09-15] MEDS: QUEtiapine 25 MG TAB PO STA (04:36)
--- NOTE | 2023-09-15 08:31 | P.PN ---
Subjective Progress Note Date: 09/15/23 Principal diagnosis: A-fib This is an 83-year-old male who originally presented to the emergency room with complaints of difficulty breathing, shortness of breath and weakness. Patient also reported increased lower leg edema over the last several days. Patient was found to be in A-fib with RVR and cardiology was consulted. He was on a Cardizem drip, rate is now better controlled. Patient also diagnosed with NSTEMI while inpatient, and remains on heparin drip. Echo was completed and showed a estimated ejection fraction of 35 to 40%. Patient seen and examined t his morning laying in bed resting comfortably. Nursing staff reports patient has been more confused. 09/15/2023 Patient seen and evaluated laying in bed this morning. He is very restless and agitated. Overnight last night patient became very agitated and required a dose of Seroquel. Over the weekend patient had a heart catheterization which revealed mild CAD. He was taken off of heparin drip and started on Eliquis, and cardiology has signed off. Family at bedside this morning. Patient is still on 3 L of oxygen, was not previously on any home oxygen. Objective - Vital Signs Vital signs: Vital Signs Temp 97.6 F 09/15/23 02:14 Pulse 85 09/15/23 02:14 Resp 20 09/15/23 02:14 BP 132/66 09/15/23 02:14 Pulse Ox 100 09/15/23 02:14 FiO2 Intake & Output 09/14/23 09/15/23 09/15/23 18:59 06:59 18:59 Intake Total 208 220 Output Total 700 550 Balance -492 -330 Intake: Oral 208 220 Output: Urine 700 550 Other: Voiding Method External Catheter External Catheter # Voids 1 - Constitutional General appearance: Present: no acute distress - EENT Eyes: Present: PERRLA - Neck Neck: Present: normal ROM. Absent: lymphadenopathy, rigidity - Respiratory Respiratory: bilateral: diminished - Cardiovascular Rhythm: irregularly irregular Heart sounds: normal: S1, S2 - Gastrointestinal General gastrointestinal: Present: soft. Absent: tenderness - Integumentary Integumentary: Present: pale - Musculoskeletal Musculoskeletal: Present: generalized weakness - Psychiatric Psychiatric Comment(s): drowsy, confused - Labs CBC & Chem 7: 09/14/23 09:04 09/14/23 09:04 Labs: Abnormal Lab Results - Last 24 Hours (Table) 09/14/23 09/14/23 Range/Units 09:04 09:04 RBC 3.77 L (4.30-5.90) m/uL Hgb 11.5 L (13.0-17.5) gm/dL Hct 35.5 L (39.0-53.0) % Plt Count 79 L (150-450) k/uL Lymphocytes # 0.4 L (1.0-4.8) k/uL Sodium 132 L (137-145) mmol/L BUN 31 H (9-20) mg/dL Glucose 102 H (74-99) mg/dL Assessment and Plan (1) Atrial fibrillation with RVR Current Visit: Yes Status: Acute Code(s): I48.91 - UNSPECIFIED ATRIAL FIBRILLATION SNOMED Code(s): 238729843314849 (2) Heart failure Current Visit: Yes Status: Acute Code(s): I50.9 - HEART FAILURE, UNSPECIFIED SNOMED Code(s): 16199154 (3) History of hypothyroidism Current Visit: No Status: Acute Code(s): Z86.39 - PERSONAL HISTORY OF ENDO, NUTRITIONAL AND METABOLIC DISEASE SNOMED Code(s): 865999831 (4) Hyperlipidemia Current Visit: No Status: Acute Code(s): E78.5 - HYPERLIPIDEMIA, UNSPECIFIED SNOMED Code(s): 36127956 (5) Hypertension Current Visit: No Status: Acute Code(s): I10 - ESSENTIAL (PRIMARY) HYPERTENSION SNOMED Code(s): 40245395 (6) CVA (cerebral vascular accident) Current Visit: Yes Status: Acute Code(s): I63.9 - CEREBRAL INFARCTION, UNSPECIFIED SNOMED Code(s): 347456047 Plan: Check CBC and CMP in the morning Appreciate neurology input Will add Ativan as needed for agitation. Patient seen and evaluated by nurse practitioner, physician in agreement with plan
[2023-09-15] MEDS: LORazepam 2 MG/ML INJ IV PRN (08:56)
[2023-09-15 09:03] LABS: BUN/Creat Ratio 19.33 Ratio (12.00-20.00); Blood Urea Nitrogen 23.2 mg/dL (9.0-27.0); Calcium 8.1 mg/dL (8.7-10.3); Carbon Dioxide 26.2 mmol/L (21.6-31.8); Chloride 96 mmol/L (96-109); Glucose 95 mg/dL (70-110); Potassium 3.6 mmol/L (3.5-5.5); Sodium 132 mmol/L (135-145)
[2023-09-15 09:54] LABS: Basophils # (A) 0.02 X 10*3/uL (0.00-0.10); Basophils % (A) 0.2 %; Eosinophils # (A) 0.19 X 10*3/uL (0.04-0.35); Eosinophils % (A) 2.3 %; HCT 33.7 % (39.6-50.0); HGB 11.2 g/dL (13.0-17.0); Immature Platelet Fraction 2.6 % (1.1-6.1); Lymphocytes # (A) 0.49 X 10*3/uL (0.90-5.00); MCH 30.3 pg (27.0-32.0); MCHC 33.2 g/dL (32.0-37.0); MCV 91.1 FL (80.0-97.0); Mean Platelet Volume 9.6 FL (9.5-12.2); Monocytes # (A) 0.87 X 10*3/uL (0.20-1.00); Monocytes % (A) 10.7 %; NRBC Per 100 WBC 0 X 10*3/uL (0.00-0.01); Neutrophils # (A) 6.53 X 10*3/uL (1.80-7.70); Neutrophils % (A) 80.4 %; Platelet Count 83 X 10*3/uL (140-440); RBC Morphology Normal (Normal); RDW 15.2 % (11.5-14.5); WBC 8.13 X 10*3/uL (4.50-10.00)
[2023-09-15] MEDS: FUROSEMIDE 10 MG/ML 4 ML VIAL IV STA (11:04)
[2023-09-15 11:05] LABS: Glucose,Whole Blood 102 mg/dL (70-110)
[2023-09-15] MEDS: METOPROLOL TARTRATE 5 MG/5 ML VIAL IVP PRN (11:20)
[2023-09-15] MEDS: ACYCLOVIR SODIUM 500 MG in SODIUM CHLORIDE 0.9% 100 ML IVPB SCH (14:05)
[2023-09-15 15:09] VITALS: BMI 23.0
[2023-09-15 17:30] LABS: ABG HCO3 29 mmol/L (21-25); ABG Oxygen Saturation 94.2 % (94-97); ABG PCO2 38 mmHg (35-45); ABG PH 7.49 (7.35-7.45); ABG PO2 63 mmHg (83-108); ABG TCO2 31 mmol/L (19-24); Allen Test Performed? Yes
--- NOTE | 2023-09-15 21:00 | P.PN ---
Subjective Progress Note Date: 09/15/23 Patient initially seen by Dr. Magnus Rodriguez. Please refer to his note for details. Patient is a 83-year-old male with bilateral hemispheric stroke due to atrial fibrillation, on heparin drip. Also on aspirin. Patient was seen for a follow-up. Patient is very encephalopathic, taking deep respiration. He appears obtunded. Patient has atrial fibrillation with rapid ventricular rate. The nurse reported that yesterday he was alert and oriented x 3's, sitting up in the chair, today he is very lethargic, arousable to light pain, he has been alert and oriented x 0, and is still in atrial fibrillation w ith rapid ventricular response. Some other workup during his hospital visit consisted of: Pulse ox was in the low 90s. His heart rate has been fluctuating and has been a s high as 110s. His troponin are in the twos. His creatinine on presentation was 1.40 got as high as 1.54 and currently is 1.29 TSH is 5.50 and free T4 is 1.6 Vitamin B12: 1299 Serum folate 12.7 Ammonia <9 Lipid panel TG 43, cholestrol 77, LDL [address] of the head is reported as no hemorrhage or other acute intracranial CT abnormality. Atrophy and chronic microvascular ischemic white matter changes. I personally reviewed the CT head and I agree there is no acute or subacute ischemia. 2D echo was reported as left ventricular ejection fraction of 35-40%. Severely reduced left ventricle systolic function. Diastolic dysfunction could not be assessed as the patient is in atrial fibrillation. Moderate biatrial dilation. Moderate mitral regurgitation. Moderate aortic valve calcification with no stenosis. Repeat CT head it is reported as barnett-white matter differentiation right o ccipital and parietal region compatible with evolving right occipital lobe/parietal lobe acute/subacute CVA. In the right posterior right frontal lobe may also be present. Correlate with MRI. I personally reviewed CT head and agree with report. Carotid duplex: Less than 50% stenosis of bilateral carotid bifurcation. MRI Brain: It is reported as scattered acute/subacute CVA with larges in the right occipital lobe. Correlate for embolic phenomenon. I personally reviewed MRI and feel it is bilateral hemispheric with largest over the right occipital region. Routine EEG: Is abnormal. The background slowing is suggestive of mild encephalopathy. There is no focal slowing, epileptiform discharge or seizure on the EEG. Objective - Vital Signs Vital signs: Vital Signs Temp 98.0 F 09/15/23 14:36 Pulse 118 H 09/15/23 19:55 Resp 24 09/15/23 19:55 BP 135/96 09/15/23 19:55 Pulse Ox 93 L 09/15/23 19:55 FiO2 Intake & Output 09/15/23 09/15/23 09/16/23 06:59 18:59 06:59 Intake Total 220 Output Total 550 Balance -330 Weight 77 kg Intake: Oral 220 Output: Urine 550 Other: Voiding Method External Catheter Diaper External Catheter # Voids 1 - Exam Patient is encephalopathic, taking sonorous breathing. On waking him up, patient was quite oriented, knows his full name, and that he is in [facility] and that it is 2023. He could not tell the month. His speech is slightly slurred because of dry mouth. Patient denies headache. Patient did not cooperate for visual field testing. Muscle strength is normal in the arms and legs with no pronator drift. No leg drift. Patient did not cooperate for sensory functions and cerebellar. - Labs CBC & Chem 7: 09/15/23 05:55 09/15/23 05:55 Labs: Abnormal Lab Results - Last 24 Hours (Table) 09/15/23 09/15/23 09/15/23 Range/Units 05:55 05:55 17:25 RBC 3.70 L (4.40-5.60) X 10*6/uL Hgb 11.2 L (13.0-17.0) g/dL Hct 33.7 L (39.6-50.0) % RDW 15.2 H (11.5-14.5) % Plt Count 83 L (140-440) X 10*3/uL Lymphocytes # 0.49 L (0.90-5.00) X 10*3/uL ABG pH 7.49 H (7.35-7.45) ABG pO2 63 L (83-108) mmHg ABG HCO3 29 H (21-25) mmol/L ABG Total CO2 31 H (19-24) mmol/L Sodium 132 L (135-145) mmol/L Calcium 8.1 L (8.7-10.3) mg/dL Assessment and Plan Assessment: This is an 83-year-old gentleman who presents because of shortness of breath. He was found to be in A. fib with RVR, elevated troponin felt to have acute exacerbation congestive heart failure. During his hospital visit seems that he was confused. Currently is back to baseline and sitting in a chair interactive and the son feels that he is doing drastically better. Acute to subacute ischemic stroke over bilateral hemipsheric with largest over the right occipital. (had confusion and on examination has left lower homonymous quadrantanopia). Confusion improved. Etiology of stroke likely due embolic (has new onset A-fib). No IV thrombolytic since outside window and risk outweigh benefit New onset A. fib with RVR NSTEMI Acute exacerbation because of heart failure excellent history of GI bleed and hematuria Dyslipidemia Chronic kidney insufficiency Plan: Patient is currently on ASA 81mg daily and is on heparin drip (for a-fib and Non-STEMI) started by cardiology. Because of the size of stroke, would recommend if possible hold anticoagulation for 2 days to avoid hemorrhagic conversion. But if the benefit outweigh the risk then resume heparin drip. His children were concerned that he is on anticoagulation currently and concerned about bleed since he had history GI bleed. I notified them there is a risk for bleed in general with anticoagulation but at same time there is risk for stroke and emboli without anticoagulation use. I will defer use of anticoagulation to cardiology team. I spoke with Dr. Krause and heparin is continued from cardiology perspective. Is on lipitor 40mg qhs. Repeat CT head, rule out any hemorrhagic conversion. Neuro checks. Cardiac monitoring PT, OT and ACADEMIC GUIDANCE SPECIALIST are consulted Cardiology is on board We'll defer the rest of the medical management to primary and other specialists For DVT prophylaxis: Is on heparin drip.
--- NOTE | 2023-09-15 22:07 | CT ---
EXAMINATION TYPE: CT brain wo con CT DLP: 1255.4 mGycm, Automated exposure control for dose reduction was used. DATE OF EXAM: 09/15/2023 9:58 PM COMPARISON: 09/11/2023. MRI 09/12/2023 CLINICAL INDICATION:Male, 83 years old with history of AMS, AMS TECHNIQUE: Brain: Axial CT images of the brain were obtained with coronal and sagittal reformats created and rev iewed. Contrast used: None. Oral contrast used: None. FINDINGS: Brain: Extra-axial spaces: No abnormal extra-axial fluid collections. Ventricular system: Dilatation in proportion to cerebral atrophy. Cerebral parenchyma: Similar loss of Lema-white matter differentiation the right occipital/parietal r egion. No new areas definitively visualized. No hemorrhagic conversion. No acute intraparenchymal hem orrhage or mass effect. The remainder of the lema-white junctions are well differentiated. Scattered hypoattenuating areas are seen within the white matter. Cerebellum: Unremarkable. Mass effect: No evidence of midline shift. Intracranial vasculature: Atherosclerotic calcifications of the intracranial vessels. Soft tissues: Normal. Calvarium/osseous structures: No depressed skull fracture. Paranasal sinuses and mastoid air cells: Mild scattered paranasal sinus disease. Visualized orbits: Senile calcific scleral plaques are present. IMPRESSION: Similar lema-white matter differentiation the right occipital and parietal region compatible with tim lving right occipital lobe/parietal lobe acute/subacute CVA. Smaller infarct seen on MRI are not well appreciated. No definitive new areas are visualized. No hemorrhagic conversion.
--- NOTE | 2023-09-16 08:47 | P.PN ---
Subjective Progress Note Date: 09/16/23 Principal diagnosis: A-fib This is an 83-year-old male who originally presented to the emergency room with complaints of difficulty breathing, shortness of breath and weakness. Patient also reported increased lower leg edema over the last several days. Patient was found to be in A-fib with RVR and cardiology was consulted. He was on a Cardizem drip, rate is now better controlled. Patient also diagnosed with NSTEMI while inpatient, and remains on heparin drip. Echo was completed and showed a estimated ejection fraction of 35 to 40%. Patient seen and examined t his morning laying in bed resting comfortably. Nursing staff reports patient has been more confused. 09/15/2023 Patient seen and evaluated laying in bed this morning. He is very restless and agitated. Overnight last night patient became very agitated and required a dose of Seroquel. Over the weekend patient had a heart catheterization which revealed mild CAD. He was taken off of heparin drip and started on Eliquis, and cardiology has signed off. Family at bedside this morning. Patient is still on 3 L of oxygen, was not previously on any home oxygen. 09/16/2022 Patient seen and evaluated sitting up in bed this morning. He is more alert this morning however does have some slurred speech. He was moved back to the cardiac floor due to increased heart rate. Overnight patient had a heart rate as high as in the 140s, currently this morning during exam in the 120s. Speech therapy is currently in the room to evaluate patient. Objective - Vital Signs Vital signs: Vital Signs Temp 98.0 F 09/15/23 14:36 Pulse 92 09/16/23 03:26 Resp 22 09/16/23 03:26 BP 138/88 09/16/23 03:26 Pulse Ox 89 L 09/16/23 03:26 FiO2 Intake & Output 09/15/23 09/16/23 09/16/23 18:59 06:59 18:59 Output Total 550 Balance -550 Weight 77 kg 77.5 kg Output: Urine 550 Other: Voiding Method Diaper Diaper # Voids 1 - Constitutional General appearance: Present: cooperative, no acute distress - EENT Eyes: Present: PERRLA - Neck Neck: Present: normal ROM. Absent: lymphadenopathy, rigidity - Respiratory Respiratory: bilateral: diminished - Cardiovascular Rhythm: irregularly irregular - Gastrointestinal General gastrointestinal: Present: soft. Absent: tenderness - Integumentary Integumentary: Present: normal, normal turgor - Neurologic Neurologic Comment(s): Slurred speech noted - Musculoskeletal Musculoskeletal: Present: generalized weakness - Psychiatric Psychiatric Comment(s): Alert to person and place - Labs CBC & Chem 7: 09/15/23 05:55 09/15/23 05:55 Labs: Abnormal Lab Results - Last 24 Hours (Table) 09/15/23 09/15/23 09/15/23 Range/Units 05:55 05:55 17:25 RBC 3.70 L (4.40-5.60) X 10*6/uL Hgb 11.2 L (13.0-17.0) g/dL Hct 33.7 L (39.6-50.0) % RDW 15.2 H (11.5-14.5) % Plt Count 83 L (140-440) X 10*3/uL Lymphocytes # 0.49 L (0.90-5.00) X 10*3/uL ABG pH 7.49 H (7.35-7.45) ABG pO2 63 L (83-108) mmHg ABG HCO3 29 H (21-25) mmol/L ABG Total CO2 31 H (19-24) mmol/L Sodium 132 L (135-145) mmol/L Calcium 8.1 L (8.7-10.3) mg/dL Assessment and Plan (1) Atrial fibrillation with RVR Current Visit: Yes Status: Acute Code(s): I48.91 - UNSPECIFIED ATRIAL FIBRILLATION SNOMED Code(s): 784979166942009 (2) Heart failure Current Visit: Yes Status: Acute Code(s): I50.9 - HEART FAILURE, UNSPECIFIED SNOMED Code(s): 36902382 (3) History of hypothyroidism Current Visit: No Status: Acute Code(s): Z86.39 - PERSONAL HISTORY OF ENDO, NUTRITIONAL AND METABOLIC DISEASE SNOMED Code(s): 107641977 (4) Hyperlipidemia Current Visit: No Status: Acute Code(s): E78.5 - HYPERLIPIDEMIA, UNSPECIFIED SNOMED Code(s): 75476688 (5) Hypertension Current Visit: No Status: Acute Code(s): I10 - ESSENTIAL (PRIMARY) HYPERTENSION SNOMED Code(s): 54282395 (6) CVA (cerebral vascular accident) Current Visit: Yes Status: Acute Code(s): I63.9 - CEREBRAL INFARCTION, UNSPECIFIED SNOMED Code(s): 792233179 Plan: Check CBC and CMP in the morning Await cardiology's recommendation for better heart rate control Appreciate neurology input Patient seen and evaluated by nurse practitioner, physician in agreement with plan
[2023-09-16 10:02] LABS: HCT 34.9 % (39.0-53.0); HGB 11.7 gm/dL (13.0-17.5); Hypochromasia Slight; MCH 30.6 pg (25.0-35.0); MCHC 33.4 g/dL (31.0-37.0); MCV 91.4 fL (80.0-100.0); RBC 3.82 m/uL (4.30-5.90); RDW 15.1 % (11.5-15.5); WBC 8.1 k/uL (3.8-10.6)
[2023-09-16 10:04] LABS: Platelet Count 77 k/uL (150-450)
[2023-09-16 10:06] LABS: ALT 38 U/L (4-49); AST 70 U/L (17-59); African American GFR (CKD) 56 (>60 ml/min/1.73 sqM); Albumin 2.8 g/dL (3.5-5.0); Alkaline Phosphatase 179 U/L (38-126); Anion Gap 5 mmol/L; Blood Urea Nitrogen 26 mg/dL (9-20); Calcium 8.2 mg/dL (8.4-10.2); Carbon Dioxide 30 mmol/L (22-30); Chloride 99 mmol/L (98-107); Glucose 88 mg/dL (74-99); Non-African American GFR(CKD) 48 (>60 ml/min/1.73 sqM); Potassium 3.5 mmol/L (3.5-5.1); Sodium 134 mmol/L (137-145); Total Bilirubin 1.2 mg/dL (0.2-1.3); Total Protein 5.9 g/dL (6.3-8.2)
--- NOTE | 2023-09-16 11:14 | P.PN ---
Subjective HISTORY OF PRESENT ILLNESS: Cardiology was reconsulted secondary to atrial fibrillation with RVR. Patient examined this morning at the bedside. Patient is lethargic. He is alert and oriented x 1. He was able to take his oral medications this morning per nursing. Telemetry reveals atrial fibrillation with heart rate between 049200. He underwent CT of the brain yesterday. Case was discussed with neurology who is okay with continuing anticoagulation and states the CT did not reveal any evidence of conversion. PHYSICAL EXAM: VITAL SIGNS: Reviewed. GENERAL: Well-developed in no acute distress. NECK: Supple. No JVD or thyromegaly LUNGS: Respirations even and unlabored. Lungs essentially clear to auscultation bilaterally. HEART: Tachycardic. Irregular rate and rhythm. S1 and S2 heard. EXTREMITIES: Normal range of motion. No clubbing or cyanosis. Peripheral pulses intact. No lower extremity edema ASSESSMENT: New onset A-fib with RVR, paroxysmal Acute CVA Acute exacerbation of systolic CHF, EF 35-40% Non-ST elevated myocardial infarction Cardiomyopathy possible Takotsubo syndrome History of DVT History of GI bleeding and hematuria Chronic anemia, stable Chronic thrombocytopenia Dyslipidemia Chronic kidney disease V-tach Altered mental status Moderate mitral regurgitation PLAN: Continue Eliquis. Case was discussed with neurology who is okay with continuing anticoagulation and states the CT did not reveal any evidence of hemorrhagic conversion. Continue current dose of metoprolol Continue telemetry monitoring Further recommendations pending patient course Nurse practitioner note has been reviewed by physician. Signing provider agrees with the documented findings, assessment, and plan of care documented by PROJECT MANAGER PROCESS DEVELOPMENT as a scribe. Objective - Vital Signs Vital signs: Vital Signs Temp 98.1 F 09/16/23 09:00 Pulse 67 09/16/23 09:49 Resp 22 09/16/23 09:49 BP 121/59 09/16/23 09:00 Pulse Ox 97 09/16/23 09:00 FiO2 Intake & Output 09/15/23 09/16/23 09/16/23 18:59 06:59 18:59 Output Total 550 Balance -550 Weight 77 kg 77.5 kg Output: Urine 550 Other: Voiding Method Diaper Diaper Diaper # Voids 1 - Labs CBC & Chem 7: 09/16/23 09:10 09/16/23 09:10 Labs: Abnormal Lab Results - Last 24 Hours (Table) 09/15/23 09/16/2309/16/24 Range/Units 17:25 09:10 09:10 RBC 3.82 L (4.30-5.90) m/uL Hgb 11.7 L (13.0-17.5) gm/dL Hct 34.9 L (39.0-53.0) % Plt Count 77 L (150-450) k/uL ABG pH 7.49 H (7.35-7.45) ABG pO2 63 L (83-108) mmHg ABG HCO3 29 H (21-25) mmol/L ABG Total CO2 31 H (19-24) mmol/L Sodium 134 L (137-145) mmol/L BUN 26 H (9-20) mg/dL Creatinine 1.35 H (0.66-1.25) mg/dL Calcium 8.2 L (8.4-10.2) mg/dL AST 70 H (17-59) U/L Alkaline Phosphatase 179 H (38-126) U/L Total Protein 5.9 L (6.3-8.2) g/dL Albumin 2.8 L (3.5-5.0) g/dL
[2023-09-17] MEDS ORDERED: LIDOCAINE 2% URO-JET JELLY 5 ML KIT URETHRAL ONE ×2 (03:10→07:00)
--- NOTE | 2023-09-17 08:20 | P.GSCN ---
History of Present Illness Consult date: 09/17/23 Reason for Consult: Urinary retention Requesting physician: Sandoval Thibodeaux History of present illness: Patient is an 83-year-old white male who underwent a TURP by Dr. Delgado in January 2023 for urinary retention. Pathology showed no evidence of malignancy. He was last seen in the office by Dr. Delgado in May 2023. The postvoid residual at that time was 295 cc. He presented with dyspnea and was admitted. He is being treated for new onset A-fib with RVR, acute exacerbation of systolic CHF, and non-ST elevated myocardial infarction. Bladder Scan overnight showed a bladder volume of 500 cc, and attempts by the nursing staff to insert a Steward catheter were unsuccessful. He was apparently uncomfortable overnight but denies any discomfort at this time. Past Medical History Past Medical History: GI Bleed, Hyperlipidemia, Hypertension, Prostate Disorder, Thyroid Disorder Additional Past Medical History / Comment(s): Has steward catheter for urinary retention. Recent hospitalization 12/11/22-12/12/22 for urinary retention/acute kidney injury. Enlarged prostate. Hx GI bleed, low Hgb in Aug 2022, Coumadin was discontinued at that time. Hx phlebitis. History of Any Multi-Drug Resistant Organisms: None Reported Past Surgical History: Appendectomy, Joint Replacement, Tonsillectomy Additional Past Surgical History / Comment(s): intestinal surgery. right hip replacement 2011, colonoscopy. Past Anesthesia/Blood Transfusion Reactions: No Reported Reaction, Motion Sickness Past Psychological History: No Psychological Hx Reported Smoking Status: Former smoker Past Alcohol Use History: None Reported Past Drug Use History: None Reported - Past Family History Father Family Medical History: No Reported History Mother Family Medical History: No Reported History Son(s) Family Medical History: Deep Vein Thrombosis (DVT) Medications and Allergies Home Medications Medication Instructions Recorded Confirmed Type Levothyroxine Sodium [Synthroid] 125 mcg PO DAILY 09/06/22 09/08/23 History Atorvastatin [Lipitor] 40 mg PO HS #30 tab 09/11/22 09/08/23 Rx Tamsulosin [Flomax] 0.4 mg PO PC-BRKFST #30 cap 12/12/22 09/08/23 Rx Bisoprolol [Zebeta] 5 mg PO DAILY 01/17/23 09/08/23 History amLODIPine [Norvasc] 2.5 mg PO DAILY 01/17/23 09/08/23 History Cholecalciferol (Vitamin D3) 75 mcg PO DAILY 09/08/23 09/08/23 History [Vitamin D3 (3000 Iu)] cefUROXime axetiL [Ceftin] 500 mg PO BID 09/08/23 09/08/23 History Allergies Allergy/AdvReac Type Severity Reaction Status Date / Time No Known Allergies Allergy Verified 09/08/23 16:42 Surgical - Exam Vital Signs Temp Pulse Resp BP Pulse Ox 96.5 F L 55 L 22 152/79 90 L 09/08/23 13:25 09/08/23 13:25 09/08/23 13:25 09/08/23 13:25 09/08/23 13:25 - General well developed, well nourished, no distress - Respiratory normal respiratory effort - Abdomen Abdomen: soft, non tender, no guarding, no rigid, no rebound Hernia: inguinal - Genitourinary normal penis with no external lesions, testicles non-tender Results - Labs 09/16/23 09:10 09/16/23 09:10 Abnormal Lab Results - Last 24 Hours (Table) 09/16/23 09/16/23 Range/Units 09:10 09:10 RBC 3.82 L (4.30-5.90) m/uL Hgb 11.7 L (13.0-17.5) gm/dL Hct 34.9 L (39.0-53.0) % Plt Count 77 L (150-450) k/uL Sodium 134 L (137-145) mmol/L BUN 26 H (9-20) mg/dL Creatinine 1.35 H (0.66-1.25) mg/dL Calcium 8.2 L (8.4-10.2) mg/dL AST 70 H (17-59) U/L Alkaline Phosphatase 179 H (38-126) U/L Total Protein 5.9 L (6.3-8.2) g/dL Albumin 2.8 L (3.5-5.0) g/dL Diabetes panel 09/16/23 Range/Units 09:10 Sodium 134 L (137-145) mmol/L Potassium 3.5 (3.5-5.1) mmol/L Chloride 99 (98-107) mmol/L Carbon Dioxide 30 (22-30) mmol/L BUN 26 H (9-20) mg/dL Creatinine 1.35 H (0.66-1.25) mg/dL Glucose 88 (74-99) mg/dL Calcium 8.2 L (8.4-10.2) mg/dL AST 70 H (17-59) U/L ALT 38 (4-49) U/L Alkaline Phosphatase 179 H (38-126) U/L Total Protein 5.9 L (6.3-8.2) g/dL Albumin 2.8 L (3.5-5.0) g/dL Calcium panel 09/16/23 Range/Units 09:10 Calcium 8.2 L (8.4-10.2) mg/dL Albumin 2.8 L (3.5-5.0) g/dL Pituitary panel 09/16/23 Range/Units 09:10 Sodium 134 L (137-145) mmol/L Potassium 3.5 (3.5-5.1) mmol/L Chloride 99 (98-107) mmol/L Carbon Dioxide 30 (22-30) mmol/L BUN 26 H (9-20) mg/dL Creatinine 1.35 H (0.66-1.25) mg/dL Glucose 88 (74-99) mg/dL Calcium 8.2 L (8.4-10.2) mg/dL Adrenal panel 09/16/23 Range/Units 09:10 Sodium 134 L (137-145) mmol/L Potassium 3.5 (3.5-5.1) mmol/L Chloride 99 (98-107) mmol/L Carbon Dioxide 30 (22-30) mmol/L BUN 26 H (9-20) mg/dL Creatinine 1.35 H (0.66-1.25) mg/dL Glucose 88 (74-99) mg/dL Calcium 8.2 L (8.4-10.2) mg/dL Total Bilirubin 1.2 (0.2-1.3) mg/dL AST 70 H (17-59) U/L ALT 38 (4-49) U/L Alkaline Phosphatase 179 H (38-126) U/L Total Protein 5.9 L (6.3-8.2) g/dL Albumin 2.8 L (3.5-5.0) g/dL Assessment and Plan (1) Urinary retention Current Visit: No Status: Acute Code(s): R33.9 - RETENTION OF URINE, UNSPECIFIED SNOMED Code(s): 926850474 Plan: Mr. Avelar underwent a TURP in January 2023 but continues to empty his bladder incompletely. Attempted Steward catheter insertion was unsuccessful. I do not recommend that he undergo complicated Steward catheter insertion which may risk urethral injury unless he becomes symptomatic. Time with Patient: Greater than 30
--- NOTE | 2023-09-17 08:45 | P.PN ---
Subjective Principal diagnosis: New onset atrial fibrillation with rapid ventricular response. NSTEMI. This is an 83-year-old white male who has not since admitted for worsening shortness of breath and slight pedal edema. He was found to have new onset atrial fibrillation with rapid ventricular response. He is now been placed on Cardizem drip with heparin due to elevated troponin. NSTEMI was diagnosed appreciate cardiology input. Heart rate is still elevated. He patient has now been stabilizing and feels that his respiratory status is significantly improved. No voiding difficulties. No hematemesis hematochezia. Patient's speech is still slightly slurred appreciate cardiology and neurology input. I am slightly concerned about his worsening respiratory status. Objective - Vital Signs Vital signs: Vital Signs Temp 97.3 F L 09/17/23 08:00 Pulse 76 09/17/23 08:00 Resp 18 09/17/23 08:00 BP 112/68 09/17/23 08:00 Pulse Ox 98 09/17/23 08:00 FiO2 Intake & Output 09/16/23 09/17/23 09/17/23 18:59 06:59 18:59 Intake Total 120 120 Output Total 225 Balance -105 120 Intake: Oral 120 120 Output: Urine 225 Other: Voiding Method Diaper Diaper - Constitutional General appearance: Present: average body habitus, cooperative - EENT Eyes: Absent: abnormal pupil - Neck Neck: Absent: lymphadenopathy - Respiratory Respiratory: bilateral: diminished - Cardiovascular Rhythm: irregularly irregular Heart sounds: normal: S1, S2 Abnormal Heart Sounds: Absent: S3 Gallop - Gastrointestinal General gastrointestinal: Present: soft. Absent: tenderness - Labs CBC & Chem 7: 09/16/23 09:10 09/16/23 09:10 Labs: Abnormal Lab Results - Last 24 Hours (Table) 09/16/23 09/16/23 Range/Units 09:10 09:10 RBC 3.82 L (4.30-5.90) m/uL Hgb 11.7 L (13.0-17.5) gm/dL Hct 34.9 L (39.0-53.0) % Plt Count 77 L (150-450) k/uL Sodium 134 L (137-145) mmol/L BUN 26 H (9-20) mg/dL Creatinine 1.35 H (0.66-1.25) mg/dL Calcium 8.2 L (8.4-10.2) mg/dL AST 70 H (17-59) U/L Alkaline Phosphatase 179 H (38-126) U/L Total Protein 5.9 L (6.3-8.2) g/dL Albumin 2.8 L (3.5-5.0) g/dL Assessment and Plan (1) Atrial fibrillation with RVR Current Visit: Yes Status: Acute Code(s): I48.91 - UNSPECIFIED ATRIAL FIBRILLATION SNOMED Code(s): 638242840219441 (2) Elevated troponin I level Current Visit: Yes Status: Acute Code(s): R77.8 - OTHER SPECIFIED ABN ORMALITIES OF PLASMA PROTEINS SNOMED Code(s): 929336108 (3) Heart failure Current Visit: Yes Status: Acute Code(s): I50.9 - HEART FAILURE, UNSPECIFIED SNOMED Code(s): 84355007 (4) History of hypothyroidism Current Visit: No Status: Acute Code(s): Z86.39 - PERSONAL HISTORY OF ENDO, NUTRITIONAL AND METABOLIC DISEASE SNOMED Code(s): 269507668 (5) Hyperlipidemia Current Visit: No Status: Acute Code(s): E78.5 - HYPERLIPIDEMIA, UNSPECIFIED SNOMED Code(s): 97600859 (6) Hypertension Current Visit: No Status: Acute Code(s): I10 - ESSENTIAL (PRIMARY) HYPERTENSION SNOMED Code(s): 84132186 (7) CVA (cerebral vascular accident) Current Visit: Yes Status: Acute Code(s): I63.9 - CEREBRAL INFARCTION, UNSPECIFIED SNOMED Code(s): 118588112 Plan: Continue diuresis with rate control. Concerning oxygen requirement. Check CBC and CMP in a.m. Continue to follow. Appreciate neurology input. Continue therapy. .
[2023-09-17 10:09] LABS: HCT 31.5 % (39.0-53.0); HGB 10.7 gm/dL (13.0-17.5); Hypochromasia Slight; MCH 31.1 pg (25.0-35.0); MCV 91.5 fL (80.0-100.0); Mean Platelet Volume 7.9; RBC 3.44 m/uL (4.30-5.90); RDW 15.1 % (11.5-15.5)
[2023-09-17 10:11] LABS: Platelet Count 69 k/uL (150-450)
[2023-09-17] MEDS: valACYclovir HCL 1,000 MG TABLET PO SCH (10:12)
[2023-09-17] MEDS: METOPROLOL SUCCINATE (ER) 25 MG TAB.ER.24H PO STA (10:12)
--- NOTE | 2023-09-17 10:19 | P.PN ---
Subjective Progress Note Date: 09/16/23 09/16/2023: Patient was seen for a follow-up. Patient offers no new complaints. Laying comfortably in the bed. 09/15/2023: Patient initially seen by Dr. Magnus Rodriguez. Please refer to his note for details. Patient is a 83-year-old male with bilateral hemispheric stroke due to atrial fibrillation, on heparin drip. Also on aspirin. Patient was seen for a follow-up. Patient is very encephalopathic, taking deep respiration. He appears obtunded. Patient has atrial fibrillation with rapid ventricular rate. The nurse reported that yesterday he was alert and oriented x 3's, sitting up in the chair, today he is very lethargic, arousable to light pain, he has been alert and oriented x 0, and is still in atrial fibrillation with rapid ventricular response. Some other workup during his hospital visit consisted of: Pulse ox was in the low 90s. His heart rate has been fluctuating and has been as high as 110s. His troponin are in the twos. His creatinine on presentation was 1.40 got as high as 1.54 and currently is 1.29 TSH is 5.50 and free T4 is 1.6 Vitamin B12: 1299 Serum folate 12.7 Ammonia <9 Lipid panel TG 43, cholestrol 77, LDL [address] of the head is reported as no hemorrhage or other acute intracranial CT abnormality. Atrophy and chronic microvascular ischemic white matter changes. I personally reviewed the CT head and I agree there is no acute or subacute ischemia. 2D echo was reported as left ventricular ejection fraction of 35-40%. Severely reduced left ventricle systolic function. Diastolic dysfunction could not be assessed as the patient is in atrial fibrillation. Moderate biatrial dilation. Moderate mitral regurgitation. Moderate aortic valve calcification with no stenosis. Repeat CT head it is reported as barnett-white matter differentiation right occipital and parietal region compatible with evolving right occipital lobe/parietal lobe acute/subacute CVA. In the right posterior right frontal lobe may also be present. Correlate with MRI. I personally reviewed CT head and agree with report. Carotid duplex: Less than 50% stenosis of bilateral carotid bifurcation. MRI Brain: It is reported as scattered acute/subacute CVA with larges in the right occipital lobe. Correlate for embolic phenomenon. I personally reviewed MRI and feel it is bilateral hemispheric with largest over the right occipital region. Routine EEG: Is abnormal. The background slowing is suggestive of mild encephalopathy. There is no focal slowing, epileptiform discharge or seizure on the EEG. Objective - Vital Signs Vital signs: Vital Signs Temp 98.1 F 09/16/23 09:00 Pulse 67 09/16/23 09:49 Resp 22 09/16/23 09:49 BP 121/59 09/16/23 09:00 Pulse Ox 97 09/16/23 09:00 FiO2 Intake & Output 09/15/23 09/16/23 09/16/23 18:59 06:59 18:59 Output Total 550 Balance -550 Weight 77 kg 77.5 kg Output: Urine 550 Other: Voiding Method Diaper Diaper Diaper # Voids 1 - Exam Patient is more alert and awake. He is still slightly encephalopathic and having some sonorous breathing. On waking him up, patient was quite oriented, knows his full name, and that he is in [facility] and that it is 2023. He could not tell the month. His speech is slightly slurred because of dry mouth. Patient denies headache. I again attempted visual field testing, but it was somewhat inconsistent. Patient has decreased attention, concentration and sometimes gets drowsy. Muscle strength is normal in the arms and legs with no pronator drift. No leg drift. Patient did not cooperate for sensory functions and cerebellar. - Labs CBC & Chem 7: 09/17/23 09:20 09/16/23 09:10 Labs: Abnormal Lab Results - Last 24 Hours (Table) 09/15/23 09/16/23 09/16/23 Range/Units 17:25 09:10 09:10 RBC 3.82 L (4.30-5.90) m/uL Hgb 11.7 L (13.0-17.5) gm/dL Hct 34.9 L (39.0-53.0) % Plt Count 77 L (150-450) k/uL ABG pH 7.49 H (7.35-7.45) ABG pO2 63 L (83-108) mmHg ABG HCO3 29 H (21-25) mmol/L ABG Total CO2 31 H (19-24) mmol/L Sodium 134 L (137-145) mmol/L BUN 26 H (9-20) mg/dL Creatinine 1.35 H (0.66-1.25) mg/dL Calcium 8.2 L (8.4-10.2) mg/dL AST 70 H (17-59) U/L Alkaline Phosphatase 179 H (38-126) U/L Total Protein 5.9 L (6.3-8.2) g/dL Albumin 2.8 L (3.5-5.0) g/dL Assessment and Plan Assessment: This is an 83-year-old gentleman who presents because of shortness of breath. He was found to be in A. fib with RVR, elevated troponin felt to have acute exacerbation congestive heart failure. During his hospital visit seems that he was confused. Currently is back to baseline and sitting in a chair interactive and the son feels that he is doing drastically better. Acute to subacute ischemic stroke over bilateral hemipsheric with largest over the right occipital. (had confusion and on examination has left lower homonymous quadrantanopia). Confusion improved. Etiology of stroke likely due embolic (has new onset A-fib). No IV thrombolytic since outside window and risk outweigh benefit New onset A. fib with RVR NSTEMI Acute exacerbation because of heart failure excellent history of GI bleed and hematuria Dyslipidemia Chronic kidney insufficiency Plan: Patient on Eliquis 5 mg twice daily. Patient is also on aspirin 81 mg daily. From neurology standpoint, patient does not need to be on antiplatelet agent unless needed from cardiology standpoint. Discussed with cardiology. Patient also on lipitor 40mg qhs. Repeat CT head revealed similar barnett-white matter differentiation in the right occipital and parietal region compatible with evolving right occipital lobe/parietal lobe acute/subacute CVA. Smaller infarcts seen on the MRI are not well-appreciated. No hemorrhagic conversion. I personally reviewed CT head agree with the findings. Neuro checks. Cardiac monitoring PT, OT and [employer]ER are consulted Cardiology is on board We'll defer the rest of the medical management to primary and other specialists For DVT prophylaxis: Patient on Eliquis. Neurologically clear for discharge to appropriate facility.
[2023-09-17 10:26] LABS: ALT 35 U/L (4-49); AST 69 U/L (17-59); African American GFR (CKD) 57 (>60 ml/min/1.73 sqM); Albumin 2.7 g/dL (3.5-5.0); Alkaline Phosphatase 167 U/L (38-126); Anion Gap 7 mmol/L; Blood Urea Nitrogen 32 mg/dL (9-20); Calcium 8.2 mg/dL (8.4-10.2); Carbon Dioxide 27 mmol/L (22-30); Chloride 99 mmol/L (98-107); Glucose 115 mg/dL (74-99); Non-African American GFR(CKD) 49 (>60 ml/min/1.73 sqM); Potassium 3.3 mmol/L (3.5-5.1); Sodium 133 mmol/L (137-145); Total Bilirubin 1.3 mg/dL (0.2-1.3); Total Protein 5.8 g/dL (6.3-8.2)
--- NOTE | 2023-09-17 11:23 | P.PN ---
Subjective HISTORY OF PRESENT ILLNESS: Cardiology was reconsulted secondary to atrial fibrillation with RVR. Patient examined this morning at the bedside. Patient is lethargic. He is alert and oriented x 1. He was able to take his oral medications this morning per nursing. Telemetry reveals atrial fibrillation with heart rate between [id number]. He underwent CT of the brain yesterday. Case was discussed with neurology who is okay with continuing anticoagulation and states the CT did not reveal any evidence of conversion. September 17, 2023 Patient examined this morning at bedside. Patient's mentation appears to be improving in comparison to yesterday. He denies any chest pain or pressure. Denies any shortness of breath. Telemetry reveals atrial fibrillation with heart rate around 100. He is currently on metoprolol succinate 50 mg daily. PHYSICAL EXAM: VITAL SIGNS: Reviewed. GENERAL: Well-developed in no acute distress. NECK: Supple. No JVD or thyromegaly LUNGS: Respirations even and unlabored. Lungs essentially clear to auscultation bilaterally. HEART: Mildly tachycardic. Irregular rate and rhythm. S1 and S2 heard. EXTREMITIES: Normal range of motion. No clubbing or cyanosis. Peripheral pulses intact. No lower extremity edema ASSESSMENT: New onset A-fib with RVR, paroxysmal Acute CVA Acute exacerbation of systolic CHF, EF 35-40% Non-ST elevated myocardial infarction Cardiomyopathy possible Takotsubo syndrome History of DVT History of GI bleeding and hematuria Chronic anemia, stable Chronic thrombocytopenia Dyslipidemia Chronic kidney disease V-tach Altered mental status Moderate mitral regurgitation PLAN: Continue anticoagulation with Eliquis Increase metoprolol succinate to 75 mg daily Continue telemetry monitoring Further recommendations pending patient course Nurse practitioner note has been reviewed by physician. Signing provider agrees with the documented findings, assessment, and plan of care documented by MOLD HOLDER as a scribe. Objective - Vital Signs Vital signs: Vital Signs Temp 97.3 F L 09/17/23 08:00 Pulse 76 09/17/23 08:00 Resp 18 09/17/23 08:00 BP 112/68 09/17/23 08:00 Pulse Ox 98 09/17/23 08:00 FiO2 Intake & Output 09/16/23 09/17/23 09/17/23 18:59 06:59 18:59 Intake Total 120 120 Output Total 225 Balance -105 120 Intake: Oral 120 120 Output: Urine 225 Other: Voiding Method Diaper Diaper - Labs CBC & Chem 7: 09/17/23 09:20 09/17/23 09:20 Labs: Abnormal Lab Results - Last 24 Hours (Table) 09/17/23 09/17/23 Range/Units 09:20 09:20 RBC 3.44 L (4.30-5.90) m/uL Hgb 10.7 L (13.0-17.5) gm/dL Hct 31.5 L (39.0-53.0) % Plt Count 69 L (150-450) k/uL Sodium 133 L (137-145) mmol/L Potassium 3.3 L (3.5-5.1) mmol/L BUN 32 H (9-20) mg/dL Creatinine 1.34 H (0.66-1.25) mg/dL Glucose 115 H (74-99) mg/dL Calcium 8.2 L (8.4-10.2) mg/dL AST 69 H (17-59) U/L Alkaline Phosphatase 167 H (38-126) U/L Total Protein 5.8 L (6.3-8.2) g/dL Albumin 2.7 L (3.5-5.0) g/dL
--- NOTE | 2023-09-17 12:59 | XR ---
EXAMINATION TYPE: XR chest 1V portable DATE OF EXAM: 09/17/2023 COMPARISON: 09/13/2023, 09/08/2019 HISTORY: Difficulty breathing TECHNIQUE: Single frontal view of the chest is obtained. FINDINGS: A diffuse bilateral infiltrate with underlying pulmonary fibrosis. Pleural thickening or s mall right pleural effusion stable. Heart size mildly enlarged. Diffuse osteopenia, degenerative banerjee ges spine and arthropathy of the shoulders. IMPRESSION: 1. Suspect underlying pulmonary fibrosis with superimposed CHF pulmonary edema or pneumonia.
[2023-09-17 17:09] VITALS: TEMP 97.9
[2023-09-17] MEDS ORDERED: Potassium Replacement Protocol 1 EACH MISC MISCELLANE PRN (17:37)
[2023-09-17] MEDS: POTASSIUM CHLORIDE ER 20 MEQ TAB.ER PO SCH (18:24)
[2023-09-18 07:12] LABS: Glucose,Whole Blood 125 mg/dL (70-110)
--- NOTE | 2023-09-18 07:15 | P.EN ---
code blue note patient lost pulse initial rhythm PEA arrest, CPR initiated following ACLS protocol, multiple round of epi given, bicarb given, once intubated a gush of blood came out of the ET tube, patient was coded for about 20 min, no ROSC achieved. please refer to paper sheets for full code report.
[2023-09-18 08:54] VITALS: BP 106/64; PULSE 110; RESP 21
[2023-09-18] MEDS ORDERED: METOPROLOL SUCCINATE (ER) 25 MG TAB.ER.24H PO SCH (09:00)
--- NOTE | 2023-09-18 19:29 | P.DS ---
Providers Date of admission: 09/08/23 17:07 Expected date of discharge: 09/18/23 Attending physician: Sandoval Thibodeaux Consults: 09/08/23 17:07 Consult Physician Urgent Consulting Provider: [facility] Consult Reason/Comments: afib with rvr, nstemi, heart failure Do you want consulting provider notified?: Yes 09/11/23 08:18 Consult Physician Routine Consulting Provider: Magnus Rodriguez Consult Reason/Comments: mental status changes Do you want consulting provider notified?: Yes 09/15/23 11:02 Consult Physician Routine Consulting Provider: Ellis Huang Consult Reason/Comments: AFIB rvr Do you want consulting provider notified?: Yes 09/16/23 20:59 Consult Physician Urgent Consulting Provider: Jaswinder Barker Consult Reason/Comments: Urinary catheter placement Do you want consulting provider notified?: Yes Primary care physician: Sandoval Thibodeaux Hospital Course: Preliminary cause of Respiratory arrest secondary to hypoxia Final diagnosis acute CVA New onset atrial fibrillation with RVR, paroxysmal Acute on chronic systolic CHF with an EF of 35 to 40% Non-ST elevated myocardial infarction History of hyperlipidemia Hypothyroidism Cardiomyopathy possible Takotsubo syndrome History of DVT History of GI bleeding and hematuria Chronic anemia, currently stable Chronic thrombocytopenia GI prophylaxis DVT prophylaxis Full code Discharge disposition Patient has . According to nursing documentation, time of was 0709 on 09/18/2023. Per nursing documentation Dr. Thibodeaux was notified. Hospital course This is an 83-year-old male who was recently hospitalized for increased shortness of breath with heart failure exacerbation along with non-ST elevated myocardial infarction with a new onset of atrial fibrillation with rapid ventri cular rate. Patient had been continued on Cardizem and also had extensive cardiac history of cardiomyopathy with chronic anemia and maintained on anticoagulation. Patient was noted to have an acute CVA as well on admission. Multiple medical consultations following and patient was full code. According to nursing documentation and event note a CODE BLUE was called as patient was noted to have heart rate in the 30s on telemetry monitoring and nursing staff entered the patient's room and found to be hypoxic and cyanotic and had removed his oxygen. Patient had been requiring high amounts of high flow oxygen at 12 L. ACLS protocol performed and patient received multiple rounds of epi and was intubated in the room and per event report was noted to have a large gush of blood from the ET tube. ROSC was not obtained and patient was pronounced at 0709. Please refer to other consultation notes and medical record for further HPI. The impression and plan of care has been dictated by Deloris Gamez, Nurse Practitioner as directed. Dr. Paul MD I have performed a history and examination and MDM of this patient, discussed the same with the dictator, and agree with the dictator's assessment and plan as written ,documented as a scribe. Based on total visit time, I have performed more than 50% of the visit. Patient Condition at Discharge: Serious Plan - Discharge Summary Discharge Rx Participant: No New Discharge Prescriptions: No Action Levothyroxine Sodium [Synthroid] 125 mcg PO DAILY Bisoprolol [Zebeta] 5 mg PO DAILY Atorvastatin [Lipitor] 40 mg PO HS #30 tab Tamsulosin [Flomax] 0.4 mg PO PC-BRKFST #30 cap amLODIPine [Norvasc] 2.5 mg PO DAILY cefUROXime axetiL [Ceftin] 500 mg PO BID Cholecalciferol (Vitamin D3) [Vitamin D3 (3000 Iu)] 75 mcg PO DAILY Discharge Medication List Levothyroxine Sodium [Synthroid] 125 mcg PO DAILY 09/06/22 [History] Atorvastatin [Lipitor] 40 mg PO HS #30 tab 09/11/22 [Rx] Tamsulosin [Flomax] 0.4 mg PO PC-BRKFST #30 cap 12/12/22 [Rx] Bisoprolol [Zebeta] 5 mg PO DAILY 01/17/23 [History] amLODIPine [Norvasc] 2.5 mg PO DAILY 01/17/23 [History] Cholecalciferol (Vitamin D3) [Vitamin D3 (3000 Iu)] 75 mcg PO DAILY 09/08/23 [History] cefUROXime axetiL [Ceftin] 500 mg PO BID 09/08/23 [History] Follow up Appointment(s)/Referral(s): Ti Krause DO [STAFF PHYSICIAN] - 1 Week Sandoval Thibodeaux MD [Primary Care Provider] - 09/18/23 1:30 pm Discharge Disposition: - Preliminary Cause of Preliminary Cause of : Respiratory arrest secondary to hypoxia
== END 2023-09-18 09:37 | disposition expired ==
LOC: EC 13:16 → 3SCARD 17:07 → 4SSUR 09-14 22:58 → 3SCARD 09-15 14:40
PROVIDERS: ADMIT Family Medicine; ATTEND Family Medicine
PROC: 4A023N7 Measurement of Cardiac Sampling and Pressure, Left Heart, Percutaneous Approach (ICD-10-PCS; principal; 2023-09-13 13:48)
PROC: B2111ZZ Fluoroscopy of Multiple Coronary Arteries using Low Osmolar Contrast (ICD-10-PCS; principal; 2023-09-13 13:48)
PROC: 0BH17EZ Insertion of Endotracheal Airway into Trachea, Via Natural or Artificial Opening (ICD-10-PCS; 2023-09-18)
PROC: 5A12012 Performance of Cardiac Output, Single, Manual (ICD-10-PCS; 2023-09-18)
PROC: 3E043XZ Introduction of Vasopressor into Central Vein, Percutaneous Approach (ICD-10-PCS; 2023-09-18)
DX: I13.0 Hypertensive heart and chronic kidney disease with heart failure and stage 1 through stage 4 chronic kidney disease, or unspecified chronic kidney disease (principal); I50.23 Acute on chronic systolic (congestive) heart failure; I21.4 Non-ST elevation (NSTEMI) myocardial infarction; I63.40 Cerebral infarction due to embolism of unspecified cerebral artery; J18.9 Pneumonia, unspecified organism; J96.01 Acute respiratory failure with hypoxia; G93.40 Encephalopathy, unspecified; I47.20 Ventricular tachycardia, unspecified; I46.2 Cardiac arrest due to underlying cardiac condition; N18.9 Chronic kidney disease, unspecified; D63.1 Anemia in chronic kidney disease; D69.6 Thrombocytopenia, unspecified; I42.8 Other cardiomyopathies; E03.9 Hypothyroidism, unspecified; E78.5 Hyperlipidemia, unspecified; H53.469 Homonymous bilateral field defects, unspecified side; I25.10 Atherosclerotic heart disease of native coronary artery without angina pectoris; I48.0 Paroxysmal atrial fibrillation; N40.1 Benign prostatic hyperplasia with lower urinary tract symptoms; R33.8 Other retention of urine; Z53.09 Procedure and treatment not carried out because of other contraindication; Z96.641 Presence of right artificial hip joint; Z79.890 Hormone replacement therapy; Z79.899 Other long term (current) drug therapy; Z86.718 Personal history of other venous thrombosis and embolism; Z86.72 Personal history of thrombophlebitis; Z90.79 Acquired absence of other genital organ(s); Z79.01 Long term (current) use of anticoagulants; Z28.21 Immunization not carried out because of patient refusal; Z87.891 Personal history of nicotine dependence; Z87.19 Personal history of other diseases of the digestive system; Z87.448 Personal history of other diseases of urinary system
CPT/HCPCS: 36415; 36600; 70450; 70551; 71045; 71046; 71275; 76937; 80048; 80053; 80061; 82140; 82607; 82746; 82805; 83605; 83880; 84439; 84443; 84484; 85025; 85027; 85379; 85610; 85730; 87636; 92950; 93005; 93306; 93458; 93880; 94760; 95816; 96365; 96366; 96367; 96368; 96375; 99291